=== PATIENT | male | born 1985 | race Hispanic/Latino ===

== ENCOUNTER 2018-01-12 00:28 | Inpatient (IN) | payer MEDICAID ==
[2018-01-11 21:15] VITALS: BMI 21.1
--- NOTE | 2018-01-12 00:33 | CP.PCM.HP ---
<Richmond Napoles - Last Filed: 01/12/18 07:21> Meds Allergies/Adverse Reactions: Allergies Allergy/AdvReac Type Severity Reaction Status Date / Time No Known Allergies Allergy Verified 01/11/18 19:07 Results - Vital Signs Recent Vital Signs: Last Vital Signs Temp 98.5 F 01/12/18 04:00 Pulse 90 01/12/18 06:16 Resp 19 01/12/18 06:16 BP 129/83 01/12/18 06:16 Pulse Ox 95 01/12/18 06:16 - Labs Labs: Laboratory Results - last 24 hr 01/12/18 01:00 Hepatitis A IgM Ab Negative Hep Bs Antigen Negative Hep B Core IgM Ab Negative Hepatitis C Antibody Negative Attending/Attestation - Attestation I have personally seen and examined this patient.: Yes I have fully participated in the care of the patient.: Yes I have reviewed all pertinent clinical information: Yes Notes (Text): 01/12/18 07:21 Assessment Rhabdo likely from lying down SUSHMA with acidosis/hyperkalemia likely from above, + hyvolemia, patient had Ct contrast exposure Left subclavian vein thrombosis, 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 Hepatitis panel as patient has ivda, dd of transamintis Counselled about substance See orders for detail Patient was transferred form [place] [facility] for acute hd. <Madina Rogers - Last Filed: 01/12/18 08:18> History of Present Illness - History of Present Illness History of Present Illness: History and Physical - Hospitalist Service CC: Left sided weakness, Acute renal Failure, Rhabdomyolysis HPI: Patient is a 32 year old male with no significant past medical history who was transferred from [facility] to [facility] for emergent dialysis. Per the patient he initially presented to the Emergency Dept for inability to move his left arm and left leg. Patient states that he was injecting cocaine and heroine in his right arm the night prior to admission. He reports that he fell asleep in his truck. Patient woke up with new onset left arm and left leg weakness. While at [place] [facility], patient was found to be in acute renal failure, rhabdomyolysis and hyperkalemia. Patient unable to urinate. Currently he still reports that he cannot move his left arm. He is able to move his left leg but it feels weak. 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, lives with parents Family History: Denies Present on Admission - Present on Admission Any Indicators Present on Admission: No Past Patient History - Tetanus Immunizations Tetanus Immunization: Up to Date - Past Social History Smoking Status: Current Some Days Smoker - CARDIAC Hx Cardiac Disorders: No Hx Hypertension: No - PULMONARY Hx Respiratory Disorders: Yes (SMOKES CIGARETTES PPD) Hx Tuberculosis: No - NEUROLOGICAL Hx Neurological Disorder: No Hx Seizures: No - HEENT Hx HEENT Problems: No - RENAL Hx Chronic Kidney Disease: No - ENDOCRINE/METABOLIC Hx Endocrine Disorders: No - HEMATOLOGICAL/ONCOLOGICAL Hx Blood Disorders: No Hx Cancer: No - INTEGUMENTARY Hx Dermatological Problems: No - MUSCULOSKELETAL/RHEUMATOLOGICAL Hx Musculoskeletal Disorders: No Hx Falls: Yes - GASTROINTESTINAL Hx Gastrointestinal Disorders: No - GENITOURINARY/GYNECOLOGICAL Hx Sexually Transmitted Disorders: No - PSYCHIATRIC Hx Psychophysiologic Disorder: Yes (HEROIN/COCAINE IVDU) Hx Substance Use: Yes (HEROIN,COCAINE IVDU.USED 2 BAGS EACH TODAY.) Other/Comment: substance abuse. - SURGICAL HISTORY Hx Surgeries: No - ANESTHESIA Hx Anesthesia: No Hx Anesthesia Reactions: No Hx Malignant Hyperthermia: No Physical Exam - Constitutional Appears: Non-toxic, No Acute Distress - Head Exam Head Exam: ATRAUMATIC, NORMAL INSPECTION, NORMOCEPHALIC - Eye Exam Eye Exam: EOMI, Normal appearance Pupil Exam: NORMAL ACCOMODATION - ENT Exam ENT Exam: Mucous Membranes Dry - Respiratory Exam Respiratory Exam: Clear to Auscultation Bilateral, NORMAL BREATHING PATTERN. absent: Rales, Rhonchi, Wheezes - Cardiovascular Exam Cardiovascular Exam: REGULAR RHYTHM, +S1, +S2. absent: Systolic Murmur - GI/Abdominal Exam GI & Abdominal Exam: Normal Bowel Sounds, Soft. absent: Guarding, Rebound, Rigid, Tenderness - Extremities Exam Extremities exam: Positive for: pedal pulses present. Negative for: calf tenderness Additional comments: + left femoral catheter - Back Exam Back exam: NORMAL INSPECTION - Neurological Exam Neurological exam: Alert, Oriented x3 - Expanded Neurological Exam Expanded Neuro motor strength exam: Left Upper Extremity: 0, Right Upper Extremity: 5, Left Lower Extremity: 3, Right Lower Extremity: 5 Assessment & Plan - Assessment and Plan (Free Text) Assessment: A/P: Patient is a 32 year old male with no significant past medical history who was transferred from [facility] for emergent dialysis. Acute Kidney Failure likely secondary to Rhabdomyolysis -Stable, afebrile -Metabolic acidosis, previously on bicarb drip -Patient currently receiving dialysis -Last CPK level was 67,913; will continue to trend -Monitor urine output -Nephrology on consult, help appreciated Left sided weakness -On exam, patient has complete paralysis of left arm and left leg weakness -CT head on admission is negative for acute intracranial pathology -Brain MRI is ordered -Cervical, Thoracic and Lumbar MRI ordered as well -Neurology on consult, help appreciated -Physical therapy, occupational therapy Hyperkalemia -Potassium was 6.0 prior to dialysis -He was given Insulin and Kayexylate at [facility] -Continue to monitor Left Subclavian Thrombus -Likely secondary to IV drug abuse -Start on anticoagulation -F/U Upper extremity venous dopplers -F/U Lower extremity venous dopplers Leukocytosis -WBC was 34 on admission -CT chest/abdomen/pelvis was negative -Blood cultures, urine cultures, procalcitonin pending -Will continue to monitor Transaminitis -AST/ALT 1105/574 -Hepatitis panel was negative -Continue to monitor -Avoid hepatotoxic agents Polysubstance abuse -UTOX positive for cocaine and opiates -Patient with history of multiple hospital visits for potential drug overdose -Cessation advised -Consider Psych consult GI/DVT ppx -Protonix 40mg PO daily -F/U lower extremity Venous US Plan discussed with Dr Yesika Rogers DO PGY-2
[2018-01-12 02:01] LABS: HEPATITIS B SURFACE AG Negative (NEGATIVE)
[2018-01-12 02:07] LABS: HEPATITIS A IGM NEGATIVE (NEGATIVE); HEPATITIS B CORE AB NEGATIVE (NEGATIVE)
[2018-01-12 02:18] LABS: HEPATITIS C ANTIBODY NEGATIVE (NEGATIVE)
--- NOTE | 2018-01-12 03:03 | CP.CCUPN ---
CCU Subjective - Physician Review Events Since Last Encounter (Free Text): 32 yo male with history of drug abuse who presented to [facility] ED yesterday after feeling stiff and inability to move his L leg and L arm. Patient reports injecting cocaine and heroin into his R arm . 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 The patient's father found him after he failed to answer his phone multiple times. Patient states that he previously has been hospitalized 4 times for drug toxicity/overdose. Patient denies any medical history . Patient transferred from [facility] today for emergency dialysis as he developed renal failure, rhabdomylysis, hyperkalemia and metabolic acidosis. He is unable to urinate currently. CT head, neck, chest, abdomen, pelvis at [facility] yesterday no acute finding. CCU Objective - Vital Signs / Intake & Output Vital Signs (Last 4 hours): Vital Signs Temp Pulse Resp BP Pulse Ox 01/12/18 02:20 98.6 F 94 H 23 117/90 01/12/18 01:31 99 H 19 125/83 94 L 01/12/18 01:20 94 H 25 H 96 01/12/18 01:10 97 H 22 94 L 01/12/18 01:00 93 H 22 96 01/12/18 00:50 91 H 24 97 01/12/18 00:42 98.8 F 01/12/18 00:40 91 H 23 97 Intake and Output (Last 8hrs): Intake & Output 01/11/18 01/11/18 01/12/18 14:59 22:59 06:59 Intake Total 0 Balance 0 Weight 179 lb 10.828 oz Intake: Oral 0 - Physical Exam Head: Positive for: Abrasion Pupils: Positive for: PERRL Extroacular Muscles: Positive for: EOMI Conjunctiva: Positive for: Normal Ears: Positive for: Normal Mouth: Positive for: Moist Mucous Membranes Pharnyx: Positive for: Normal Nose (External): Positive for: Atraumatic Neck: Positive for: Normal Range of Motion Respiratory/Chest: Positive for: Clear to Auscultation Cardiovascular: Positive for: Regular Rate and Rhythm Abdomen: Positive for: Normal Bowel Sounds Upper Extremity: Positive for: Normal Inspection, Other (unable to move left arm) Lower Extremity: Positive for: Normal Inspection, Other (unable to harrison left leg) Neurological: Positive for: Speech Normal, Other (unable to move left arm and left leg) Psychiatric: Positive for: Alert, Oriented x 3 - Patient Studies Lab Studies: Lab Studies 01/12/18 Range/Units 01:00 Hepatitis A IgM Ab Negative (NEGATIVE) Hep Bs Antigen Negative (NEGATIVE) Hep B Core IgM Ab Negative (NEGATIVE) Hepatitis C Antibody Negative (NEGATIVE) Laboratory Results - last 24 hr 01/12/18 01:00 Hepatitis A IgM Ab Negative Hep Bs Antigen Negative Hep B Core IgM Ab Negative Hepatitis C Antibody Negative Assessment/Plan - Assessment and Plan (Free Text) Assessment: A/P Renal failure, rhabdomylysis, hyperkalemia, metabolic acidosis, ?left side weakness, drug abuse - Dialysis as per renal - Neurology consult - MRI brain and neck - Venous Doppler upper and lower extremities - Follow up electrolytes Critical care 35 min
[2018-01-12] MEDS ORDERED: Heparin25000 units/250ml 1/2NS 25,000 UNITS/250 ML BAG IV PRN (03:08)
[2018-01-12 08:36] LABS: BASO % 0.2 % (0.0-2.0); HEMOGLOBIN 12.9 g/dL (12.0-18.0); LYMPH # 1.2 K/uL (1.0-4.3); LYMPH % 8.5 % (20.0-40.0); MEAN CELL VOLUME 83.7 fL (80.0-94.0); MEAN CORPUSCULAR HEMOGLOBIN 28.4 pg (27.0-31.0); MEAN CORPUSCULAR HGB CONC 33.9 g/dL (33.0-37.0); MEAN PLATELET VOLUME 8.5 fL (7.2-11.7); MONO # 1.1 K/uL (0.0-0.8); MONO % 7.4 % (0.0-10.0); NEUT # 12.3 K/uL (1.8-7.0); NEUT % 83.9 % (50.0-75.0); PLATELET COUNT 162 K/uL (130-400); RBC 4.55 Mil/uL (4.40-5.90); RED CELL DISTRIBUTION WIDTH 15.7 % (11.5-14.5); WHITE BLOOD COUNT 14.7 K/uL (4.8-10.8)
[2018-01-12 08:51] LABS: ALB/GLOB RATIO 1.2 (1.0-2.1); CALCIUM 7.4 mg/dl (8.6-10.4)
--- NOTE | 2018-01-12 08:51 | CP.PCM.CON ---
<Yadiel Bates - Last Filed: 01/12/18 13:19> History of Present Illness - History of Present Illness History of Present Illness: Yadiel Bates DO, PGY-2: Nephrology Consult Note for Dr. 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 He reports not remembering much after shooting up but when he woke up in the morning he had difficulty moving his left arm and leg. He was eventually sent to the ED in [facility] and was found to have acute kidney injury, severe rhabdomyolysis, hyperkalemia, and anuric despite being given 4-5 L of fluids and Lasix. Nephrology was consulted and it was decided to transfer the patient to [facility] overnight for emergent hemodialysis. At the time of my encounter with the patient he is alert and oriented x 3. He is with Ricci catheter without any urine output noted. He complains of difficulty moving the left leg and arm aloing with associated numbness of the left leg. He denies fever, chills, nausea, vomiting, chest pain, diaphoresis, or headache. He admits to left sided weakness and numbness and lack of urinary output. 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 parents Family History: Denies Review of Systems - Review of Systems All systems: reviewed and no additional remarkable complaints except (except as per HPI) Past Patient History - Tetanus Immunizations Tetanus Immunization: Up to Date - Past Medical History & Family History Past Medical History?: Yes - Past Social History Smoking Status: Current Some Days Smoker - CARDIAC Hx Cardiac Disorders: No Hx Hypertension: No - PULMONARY Hx Respiratory Disorders: Yes (SMOKES CIGARETTES PPD) Hx Tuberculosis: No - NEUROLOGICAL Hx Neurological Disorder: No Hx Seizures: No - HEENT Hx HEENT Problems: No - RENAL Hx Chronic Kidney Disease: No - ENDOCRINE/METABOLIC Hx Endocrine Disorders: No - HEMATOLOGICAL/ONCOLOGICAL Hx Blood Disorders: No Hx Cancer: No - INTEGUMENTARY Hx Dermatological Problems: No - MUSCULOSKELETAL/RHEUMATOLOGICAL Hx Musculoskeletal Disorders: No Hx Falls: Yes - GASTROINTESTINAL Hx Gastrointestinal Disorders: No - GENITOURINARY/GYNECOLOGICAL Hx Sexually Transmitted Disorders: No - PSYCHIATRIC Hx Psychophysiologic Disorder: Yes (HEROIN/COCAINE IVDU) Hx Substance Use: Yes (HEROIN,COCAINE IVDU.USED 2 BAGS EACH TODAY.) Other/Comment: substance abuse. - SURGICAL HISTORY Hx Surgeries: No - ANESTHESIA Hx Anesthesia: No Hx Anesthesia Reactions: No Hx Malignant Hyperthermia: No Meds Allergies/Adverse Reactions: Allergies Allergy/AdvReac Type Severity Reaction Status Date / Time No Known Allergies Allergy Verified 01/11/18 19:07 - Medications Medications: Current Medications Heparin Sodium/Sodium Chloride (Heparin 39043 Units/250ml 1/2 Normal Saline) 25,000 units in 250 mls @ 14.67 mls/hr IV .Q17H3M PRN; Protocol PRN Reason: ADJUST RATE PER PROTOCOL Influenza Virus Vaccine (Fluzone Quad [id number]) 60 mcg IM .ONCE ONE Stop: 01/13/18 10:01 Pantoprazole Sodium (Protonix Ec Tab) 40 mg PO DAILY [facility] Pneumococcal Polyvalent Vaccine (Pneumovax 23 Vaccine) 0.5 ml IM .ONCE ONE Stop: 01/13/18 10:01 Physical Exam - Constitutional Appears: Non-toxic - Head Exam Head Exam: ATRAUMATIC, NORMOCEPHALIC - Eye Exam Eye Exam: EOMI, Normal appearance - ENT Exam ENT Exam: Mucous Membranes Moist - Neck Exam Neck exam: Positive for: Normal Inspection - Respiratory Exam Respiratory Exam: Clear to Auscultation Bilateral, NORMAL BREATHING PATTERN. absent: Accessory Muscle Use - Cardiovascular Exam Cardiovascular Exam: RRR, +S1, +S2 - GI/Abdominal Exam GI & Abdominal Exam: Soft. absent: Distended, Guarding, Rebound - Extremities Exam Extremities exam: Positive for: normal inspection. Negative for: calf tenderness - Neurological Exam Neurological exam: Alert, Oriented x3 Additional comments: left sided weakness in arm and leg - Psychiatric Exam Psychiatric exam: Normal Affect, Normal Mood - Skin Skin Exam: Dry, Intact, Normal Color, Warm Results - Vital Signs Recent Vital Signs: Last Vital Signs Temp 98.5 F 01/12/18 08:00 Pulse 94 H 01/12/18 07:17 Resp 18 01/12/18 07:17 BP 129/94 H 01/12/18 07:17 Pulse Ox 96 01/12/18 07:17 - Labs Result Diagrams: 01/12/18 08:31 01/12/18 08:31 Labs: Laboratory Results - last 24 hr 01/12/18 01/12/18 01:00 08:31 WBC 14.7 H RBC 4.55 Hgb 12.9 Hct 38.1 MCV 83.7 MCH 28.4 MCHC 33.9 RDW 15.7 H Plt Count 162 MPV 8.5 Neut % (Auto) 83.9 H Lymph % (Auto) 8.5 L [place] % (Auto) 7.4 Eos % (Auto) 0.0 Baso % (Auto) 0.2 Neut # (Auto) 12.3 H Lymph # (Auto) 1.2 [place] # (Auto) 1.1 H Eos # (Auto) 0.0 Baso # (Auto) 0.0 Hepatitis A IgM Ab Negative Hep Bs Antigen Negative Hep B Core IgM Ab Negative Hepatitis C Antibody Negative Assessment & Plan - Assessment and Plan (Free Text) Assessment: 32 year old male with a medical history notable for intravenous cocaine and heroin abuse who presented to [facility] yesterday for left sided weakness in the setting of shooting up and was found to have acute kidney injury, severe rhabdomyolysis, hyperkalemia (not satisfactorily responding to conservative therapy), and anuria despite being given 6 L of fluids and IV diuretics. He was emergently transferred to [facility] for emergent dialysis and is being closely monitored in the ICU. Plan: 1) Acute kidney failure with hyperkalemia secondary to severe rhabdomyolysis and drug induced ATN - CPK 68,000, LDH 5,950, UA showing blood - Urine cytology ordered to assess for any cast or other abnormalities - CPK trending down - Continue fluids with 100 mls/hr - Hyperkalemia has resolved - Continue HD as per Dr. Alvarez (patient will likely go tomorrow for dialysis) - During previous dialysis session it was noted flow rate in dialysis catheter was 250 mls/min (though it should be 350 mls/hr); this is likely secondary to placement of the catheter. To be addressed by Dr. Alvarez prior to next dialysis session 2) Relatively Anuric - Continue IV fluids - Strict I/O Case was reviewed and discussed in detal with attending physician, Dr. Alvarez - Date & Time Date: 01/12/18 Time: 09:03 <Ortega Alvarez - Last Filed: 01/12/18 23:18> Meds - Medications Medications: Current Medications Heparin Sodium/Sodium Chloride (Heparin 40352 Units/250ml 1/2 Normal Saline) 25,000 units in 250 mls @ 14.67 mls/hr IV .Q17H3M PRN; Protocol PRN Reason: ADJUST RATE PER PROTOCOL Last Titration: 01/12/18 18:00 Dose: 20 units/kg/hr, 16.3 mls/hr Sodium Chloride (Sodium Chloride 0.9%) 1,000 mls @ 100 mls/hr IV .Q10H [facility] Last Admin: 01/12/18 12:51 Dose: 100 mls/hr Influenza Virus Vaccine (Fluzone Quad [id number]) 60 mcg IM .ONCE ONE Stop: 01/13/18 10:01 Pantoprazole Sodium (Protonix Ec Tab) 40 mg PO DAILY [facility] Last Admin: 01/12/18 10:35 Dose: 40 mg Pneumococcal Polyvalent Vaccine (Pneumovax 23 Vaccine) 0.5 ml IM .ONCE ONE Stop: 01/13/18 10:01 Results - Vital Signs Recent Vital Signs: Last Vital Signs Temp 98.2 F 01/12/18 20:00 Pulse 92 H 01/12/18 22:16 Resp 25 H 01/12/18 22:16 BP 135/93 H 01/12/18 22:16 Pulse Ox 97 01/12/18 22:16 - Labs Result Diagrams: 01/12/18 08:31 01/12/18 21:44 Labs: Laboratory Results - last 24 hr 01/12/18 01/12/18 01/12/18 01:00 08:31 08:31 WBC 14.7 H RBC 4.55 Hgb 12.9 Hct 38.1 MCV 83.7 MCH 28.4 MCHC 33.9 RDW 15.7 H Plt Count 162 MPV 8.5 Neut % (Auto) 83.9 H Lymph % (Auto) 8.5 L [place] % (Auto) 7.4 Eos % (Auto) 0.0 Baso % (Auto) 0.2 Neut # (Auto) 12.3 H Lymph # (Auto) 1.2 [place] # (Auto) 1.1 H Eos # (Auto) 0.0 Baso # (Auto) 0.0 Neutrophils % (Manual) 84 H Band Neutrophils % 6 H Lymphocytes % (Manual) 6 L Monocytes % (Manual) 4 Platelet Estimate Normal Anisocytosis (manual) Slight PT INR APTT Sodium 135 Potassium 4.2 Chloride 99 Carbon Dioxide 28 Anion Gap 12 BUN 26 H Creatinine 2.9 H Est GFR ( Amer) 31 Est GFR (Non-Af Amer) 25 Random Glucose 105 Calcium 7.4 L Phosphorus 5.3 H Magnesium 1.6 Total Bilirubin 0.4 AST 1033 H ALT 465 H Alkaline Phosphatase 71 Total Creatine Kinase 62540 H Total Protein 5.5 L Albumin 3.0 L Globulin 2.5 Albumin/Globulin Ratio 1.2 Procalcitonin Hepatitis A IgM Ab Negative Hep Bs Antigen Negative Hep B Core IgM Ab Negative Hepatitis C Antibody Negative 01/12/18 01/12/18 01/12/18 08:31 17:17 21:44 WBC RBC Hgb Hct MCV MCH MCHC RDW Plt Count MPV Neut % (Auto) Lymph % (Auto) [place] % (Auto) Eos % (Auto) Baso % (Auto) Neut # (Auto) Lymph # (Auto) [place] # (Auto) Eos # (Auto) Baso # (Auto) Neutrophils % (Manual) Band Neutrophils % Lymphocytes % (Manual) Monocytes % (Manual) Platelet Estimate Anisocytosis (manual) PT 15.3 H INR 1.4 APTT 41 H Sodium 133 Potassium 3.7 Chloride 98 Carbon Dioxide 26 Anion Gap 13 BUN 34 H Creatinine 4.0 H Est GFR ( Amer) 21 Est GFR (Non-Af Amer) 17 Random Glucose 98 Calcium 7.3 L Phosphorus Magnesium Total Bilirubin AST ALT Alkaline Phosphatase Total Creatine Kinase Total Protein Albumin Globulin Albumin/Globulin Ratio Procalcitonin 33.43 H Hepatitis A IgM Ab Hep Bs Antigen Hep B Core IgM Ab Hepatitis C Antibody Attending/Attestation - Attestation I have personally seen and examined this patient.: Yes I have fully participated in the care of the patient.: Yes I have reviewed all pertinent clinical information: Yes Notes (Text): Patient seen and examined; I agree with the resident's plan as above with the following additions/edits: 32 yo M w/ pmh of IVDA, admitted to [facility] with severe rhabdomyolysis in the setting of likely prolonged compression of upper extremity muscle compartment (though no compartment syndrome) as well as cocaine use, transferred to [facility] overnight for acute oliguric renal failure needing urgent HD for hyperkalemia and metabolic acidosis; ATN secondary to severe rhabdo and possibly exacerbated by IV contrast; no need to check urine cytology unless patient has persistent hematuria in the future; Patient received HD overnight, tolerated well and with hyperkalemia/metabolic acidosis corrected despite subpar blood flows; patient remains oligo-anuric; repeat labs this evening show stable electrolyte status; relatively euvolemic on exam with no extra FIO2 requirement; Patient also with initial presentation consistent with severe sepsis with profound hypotension, lactic acidosis and leukocytosis; received 6L NS boluses with marked hemodynamic improvement; broad spectrum antibiotics ordered by ID at [facility] but unclear if patient actually received them; leukocytosis much improved but still with neutrophil bands and markedly elevated procalcitonin level; blood cultures negative to date; Found also to have 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
[2018-01-12 09:23] LABS: BANDS 6 % (0-2); LYMPHOCYTE 6 % (20-40); MONOCYTE 4 % (0-10); NEUTROPHIL 84 % (50-75); PLATELET ESTIMATE NORMAL (NORMAL); TOTAL CELLS COUNTED 100
[2018-01-12 09:26] LABS: ANISOCYTOSIS SLIGHT
[2018-01-12] MEDS: Heparin25000 units/250ml 1/2NS 25,000 UNITS/250 ML BAG IV PRN (10:33)
[2018-01-12] MEDS: Pantoprazole 40 mg EC Tab PO SCH (10:35)
[2018-01-12] MEDS ORDERED: Sodium Bicarbonate 8.4% 200 MEQ in Sodium Chloride 0.9% 1,000 ML IV ONE (10:58)
[2018-01-12] MEDS ORDERED: Sodium Bicarbonate (8.4%) 50 Meq Syringe IVP ONE (11:40)
[2018-01-12] MEDS: Sodium Chloride 0.9% 1,000 ML IV SCH (12:51)
--- NOTE | 2018-01-12 15:18 | CP.PCM.CON ---
<Reji Starks - Last Filed: 01/12/18 15:29> History of Present Illness - History of Present Illness History of Present Illness: 32 year old male with no past medical history was transferred from [facility] to [facility] for emergent hemodialysis. Patient also reported left sided weakness since yesterday. He reports this being the first time this has occurred. Patient did admit prior to the symptoms he was injecting heroin. Afterwards, he reported the symptoms. He denies any chest pain, fevers, chills, nausea, vomiting, headaches, syncopal episodes, or any other complaints. 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 absent: Daytime Sleepiness, Frequent Falls, Headache, Night Sweats, Snoring - EENT Eyes: absent: Blurred Vision, Discharge, Loss of Peripheral Vision, Requires Co rrective Lenses, Sees Flashes, Other Visual Disturbances, Loss of Vision Ears: absent: Ear Discharge, Dizziness Nose/Mouth/Throat: absent: Nasal Congestion, Nose Pain, Bleeding Gums, Dysphagia, Mouth Pain, Facial Pain - Cardiovascular Cardiovascular: absent: Chest Pain, Claudication, Irregular Heart Rhythm, Leg Edema, Palpitations, Pedal Edema, Syncope - Gastrointestinal Gastrointestinal: absent: Dysphagia, Heartburn, Melena, Nausea - Integumentary Integumentary: absent: Lesions, Swelling, Unusual Bruising - Neurological Neurological: Weakness. absent: Loss of Vision, Radicular Pain, Restless Legs, Syncope, Tingling, Tremor, Vertigo - Psychiatric Psychiatric: absent: Behavioral Changes, Depression, Hopelessness, Panic Attacks - Endocrine Endocrine: absent: Polydipsia, Polyphagia, Polyuria - Hematologic/Lymphatic Hematologic: absent: Easy Bleeding, Easy Bruising Past Patient History - Tetanus Immunizations Tetanus Immunization: Up to Date - Past Medical History & Family History Past Medical History?: Yes - Past Social History Smoking Status: Current Some Days Smoker - CARDIAC Hx Cardiac Disorders: No Hx Hypertension: No - PULMONARY Hx Respiratory Disorders: Yes (SMOKES CIGARETTES PPD) Hx Tuberculosis: No - NEUROLOGICAL Hx Neurological Disorder: No Hx Seizures: No - HEENT Hx HEENT Problems: No - RENAL Hx Chronic Kidney Disease: No - ENDOCRINE/METABOLIC Hx Endocrine Disorders: No - HEMATOLOGICAL/ONCOLOGICAL Hx Blood Disorders: No Hx Cancer: No - INTEGUMENTARY Hx Dermatological Problems: No - MUSCULOSKELETAL/RHEUMATOLOGICAL Hx Musculoskeletal Disorders: No Hx Falls: Yes - GASTROINTESTINAL Hx Gastrointestinal Disorders: No - GENITOURINARY/GYNECOLOGICAL Hx Sexually Transmitted Disorders: No - PSYCHIATRIC Hx Psychophysiologic Disorder: Yes (HEROIN/COCAINE IVDU) Hx Substance Use: Yes (HEROIN,COCAINE IVDU.USED 2 BAGS EACH TODAY.) Other/Comment: substance abuse. - SURGICAL HISTORY Hx Surgeries: No - ANESTHESIA Hx Anesthesia: No Hx Anesthesia Reactions: No Hx Malignant Hyperthermia: No Meds Allergies/Adverse Reactions: Allergies Allergy/AdvReac Type Severity Reaction Status Date / Time No Known Allergies Allergy Verified 01/11/18 19:07 - Medications Medications: Current Medications Heparin Sodium/Sodium Chloride (Heparin 67103 Units/250ml 1/2 Normal Saline) 25,000 units in 250 mls @ 14.67 mls/hr IV .Q17H3M PRN; Protocol PRN Reason: ADJUST RATE PER PROTOCOL Last Admin: 01/12/18 10:33 Dose: 18 units/kg/hr, 14.67 mls/hr Sodium Chloride (Sodium Chloride 0.9%) 1,000 mls @ 100 mls/hr IV .Q10H [facility] Last Admin: 01/12/18 12:51 Dose: 100 mls/hr Influenza Virus Vaccine (Fluzone Quad [id number]) 60 mcg IM .ONCE ONE Stop: 01/13/18 10:01 Pantoprazole Sodium (Protonix Ec Tab) 40 mg PO DAILY [facility] Last Admin: 01/12/18 10:35 Dose: 40 mg Pneumococcal Polyvalent Vaccine (Pneumovax 23 Vaccine) 0.5 ml IM .ONCE ONE Stop: 01/13/18 10:01 Physical Exam - Head Exam Head Exam: ATRAUMATIC, NORMAL INSPECTION - Eye Exam Eye Exam: EOMI, Normal appearance, PERRL - ENT Exam ENT Exam: Mucous Membranes Moist, Normal Oropharynx - Neck Exam Neck exam: Negative for: Lymphadenopathy, Thyromegaly - Respiratory Exam Respiratory Exam: Clear to Auscultation Bilateral, NORMAL BREATHING PATTERN. absent: Chest Wall Tenderness, Prolonged Expiratory Phase, Respiratory Distress - Cardiovascular Exam Cardiovascular Exam: REGULAR RHYTHM, RRR, +S1, +S2. absent: Gallop, Rubs - GI/Abdominal Exam GI & Abdominal Exam: Normal Bowel Sounds, Soft. absent: Organomegaly, Tenderness - Back Exam Back exam: NORMAL INSPECTION - Neurological Exam Neurological exam: Alert, CN II-XII Intact, Motor Sensory Deficit - Expanded Neurological Exam Expanded Sensory exam: Lower Extremity Light Touch: Abnormal Left, Upper Extremity Light Touch: Abnormal Left Neuro motor strength exam: Left Upper Extremity: 3, Right Upper Extremity: 4, Left Lower Extremity: 3, Right Lower Extremity: 4 - Psychiatric Exam Psychiatric exam: Normal Affect, Normal Mood - Skin Skin Exam: Dry, Intact Results - Vital Signs Recent Vital Signs: Last Vital Signs Temp 98.5 F 01/12/18 08:00 Pulse 91 H 01/12/18 11:16 Resp 20 01/12/18 11:16 BP 128/88 01/12/18 11:16 Pulse Ox 98 01/12/18 11:16 - Labs Result Diagrams: 01/12/18 08:31 01/12/18 08:31 Labs: Laboratory Results - last 24 hr 01/12/18 01/12/18 01/12/18 01:00 08:31 08:31 WBC 14.7 H RBC 4.55 Hgb 12.9 Hct 38.1 MCV 83.7 MCH 28.4 MCHC 33.9 RDW 15.7 H Plt Count 162 MPV 8.5 Neut % (Auto) 83.9 H Lymph % (Auto) 8.5 L [place] % (Auto) 7.4 Eos % (Auto) 0.0 Baso % (Auto) 0.2 Neut # (Auto) 12.3 H Lymph # (Auto) 1.2 [place] # (Auto) 1.1 H Eos # (Auto) 0.0 Baso # (Auto) 0.0 Neutrophils % (Manual) 84 H Band Neutrophils % 6 H Lymphocytes % (Manual) 6 L Monocytes % (Manual) 4 Platelet Estimate Normal Anisocytosis (manual) Slight Sodium 135 Potassium 4.2 Chloride 99 Carbon Dioxide 28 Anion Gap 12 BUN 26 H Creatinine 2.9 H Est GFR ( Amer) 31 Est GFR (Non-Af Amer) 25 Random Glucose 105 Calcium 7.4 L Phosphorus 5.3 H Magnesium 1.6 Total Bilirubin 0.4 AST 1033 H ALT 465 H Alkaline Phosphatase 71 Total Creatine Kinase 62748 H Total Protein 5.5 L Albumin 3.0 L Globulin 2.5 Albumin/Globulin Ratio 1.2 Procalcitonin Hepatitis A IgM Ab Negative Hep Bs Antigen Negative Hep B Core IgM Ab Negative Hepatitis C Antibody Negative 01/12/18 08:31 WBC RBC Hgb Hct MCV MCH MCHC RDW Plt Count MPV Neut % (Auto) Lymph % (Auto) [place] % (Auto) Eos % (Auto) Baso % (Auto) Neut # (Auto) Lymph # (Auto) [place] # (Auto) Eos # (Auto) Baso # (Auto) Neutrophils % (Manual) Band Neutrophils % Lymphocytes % (Manual) Monocytes % (Manual) Platelet Estimate Anisocytosis (manual) Sodium Potassium Chloride Carbon Dioxide Anion Gap BUN Creatinine Est GFR ( Amer) Est GFR (Non-Af Amer) Random Glucose Calcium Phosphorus Magnesium Total Bilirubin AST ALT Alkaline Phosphatase Total Creatine Kinase Total Protein Albumin Globulin Albumin/Globulin Ratio Procalcitonin 33.43 H Hepatitis A IgM Ab Hep Bs Antigen Hep B Core IgM Ab Hepatitis C Antibody Assessment & Plan - Assessment and Plan (Free Text) Assessment: 32 year old male with past medical history being admitted for emergent hemodialysis and left sided weakness. Plan: 1.Left sided weakness -CT head: :Negative -Brain MRI w/o contrast ordered. Will f/u with results -Cervical spine MRI ordered.Will f/u with results -Lumbar spine MRI ordered. Will f/u with results -Thoracic spine MRI ordered. Will f/u with results. -PT/OT Plan discussed with Dr. Rigo Starks,PGY-2 <Jason Ham - Last Filed: 01/14/18 18:37> Meds - Medications Medications: Current Medications Amoxicillin/Clavulanate Potassium (Augmentin 500 Mg-125 Mg Tab) 1 tab PO Q24H [facility]; Protocol Last Admin: 01/14/18 15:34 Dose: 1 tab Heparin Sodium/Sodium Chloride (Heparin 60842 Units/250ml 1/2 Normal Saline) 25,000 units in 250 mls @ 14.67 mls/hr IV .Q17H3M PRN; Protocol PRN Reason: ADJUST RATE PER PROTOCOL Last Admin: 01/14/18 08:12 Dose: 20 units/kg/hr, 16.3 mls/hr Pantoprazole Sodium (Protonix Ec Tab) 40 mg PO DAILY [facility] Last Admin: 01/14/18 10:49 Dose: 40 mg Results - Vital Signs Recent Vital Signs: Last Vital Signs Temp 98.4 F 01/14/18 16:00 Pulse 66 01/14/18 18:00 Resp 26 H 01/14/18 18:00 BP 130/73 01/14/18 16:31 Pulse Ox 97 01/14/18 18:00 - Labs Result Diagrams: 01/14/18 05:53 01/14/18 05:53 Labs: Laboratory Results - last 24 hr 01/13/18 01/14/18 01/14/18 23:12 05:53 05:53 WBC 8.6 RBC 3.97 L Hgb 11.2 L Hct 32.9 L MCV 82.8 MCH 28.2 MCHC 34.1 RDW 15.7 H Plt Count 133 MPV 8.5 Neut % (Auto) 72.0 Lymph % (Auto) 19.3 L [place] % (Auto) 7.2 Eos % (Auto) 1.0 Baso % (Auto) 0.5 Neut # (Auto) 6.2 Lymph # (Auto) 1.7 [place] # (Auto) 0.6 Eos # (Auto) 0.1 Baso # (Auto) 0.0 APTT 49 H D Sodium 136 Potassium 3.7 Chloride 105 Carbon Dioxide 25 Anion Gap 11 BUN 30 H Creatinine 4.4 H Est GFR ( Amer) 19 Est GFR (Non-Af Amer) 16 Random Glucose 108 Calcium 7.6 L Phosphorus 3.6 Magnesium 1.9 Total Bilirubin 0.4 AST 628 H D ALT 371 H Alkaline Phosphatase 62 Total Protein 5.3 L Albumin 2.8 L Globulin 2.5 Albumin/Globulin Ratio 1.1 01/14/18 05:53 WBC RBC Hgb Hct MCV MCH MCHC RDW Plt Count MPV Neut % (Auto) Lymph % (Auto) [place] % (Auto) Eos % (Auto) Baso % (Auto) Neut # (Auto) Lymph # (Auto) [place] # (Auto) Eos # (Auto) Baso # (Auto) APTT 58 H D Sodium Potassium Chloride Carbon Dioxide Anion Gap BUN Creatinine Est GFR ( Amer) Est GFR (Non-Af Amer) Random Glucose Calcium Phosphorus Magnesium Total Bilirubin AST ALT Alkaline Phosphatase Total Protein Albumin Globulin Albumin/Globulin Ratio Assessment & Plan - Assessment and Plan (Free Text) Plan: All medical record entries made by theResident were at my direction and personally dictated by me. I have reviewed the chart and agree that the record accurately reflects my personal performance of the history, physical exam, me dical decision making, and the department course for this patient. I have also personally directed, reviewed, and agree with the discharge instructions and disposition. Emilie Jimenez presented initially with left arm and leg weakness that was thought to be a stroke, and MRI brain showed otherwise. MRI L spine and C spine are normal thus far, showing only herniated disc in cervical region, as etiology for weakness and numbness of left arm. Physical therapy would be helpful and discontinuing heroin use. DR. ham
--- NOTE | 2018-01-12 15:53 | MRI ---
Date of service: 01/12/2018 PROCEDURE: MRI BRAIN WITHOUT CONTRAST HISTORY: Left sided weakness COMPARISON: None available. TECHNIQUE: Multiplanar, multisequence MR images of the brain were obtained without intravenous contrast enhancement. FINDINGS: HEMORRHAGE: None DWI: No evidence of an acute or early subacute infarction. BRAIN PARENCHYMA: Trace increased long TR signal is questioned posterior to the occipital horn at the left side with questionable limited cortical development here. This may reflect congenital minimal micro gyri although this could reflect posttraumatic change as well. The vast majority of the epperson and white matter structures are normal with good differentiation otherwise appreciated throughout. There is no mass effect, cortical edema or suspicious extra-axial collection identified. Midline brain anatomy appears normal with posterior fossa unremarkable as well. VENTRICLES: Unremarkable. No hydrocephalus. CRANIUM: Unremarkable. ORBITS: Grossly unremarkable. PARANASAL SINUSES/MASTOIDS: Incidental minimal right maxillary and bilateral ethmoid sinus disease. VASCULAR SYSTEM: Skull base flow voids intact. OTHER FINDINGS: None. IMPRESSION: No acute or subacute brain infarction, mass effect or hydrocephalus. No suspicious extra-axial collection or definite intracranial hemorrhage. Minimal congenital or possible posttraumatic change left occipital lobe posteriorly.
--- NOTE | 2018-01-12 15:57 | MRI ---
Date of service: 01/12/2018 PROCEDURE: MR CERVICAL SPINE WITHOUT CONTRAST HISTORY: Left sided weakness COMPARISON: None available. TECHNIQUE: Multiecho multiplanar sequences were performed through the cervical spine without the use of intravenous contrast. FINDINGS: Normal lordotic curvature. Craniocervical junction unremarkable. Vertebral body heights preserved. No marrow signal abnormality. Normal cervical cord. No paraspinal abnormality. C2-C3: No disc herniation, spinal canal stenosis or neural foraminal narrowing. C3-C4: No disc herniation, spinal canal stenosis or neural foraminal narrowing. C4-C5: No disc herniation, spinal canal stenosis or neural foraminal narrowing. C5-C6: Limited disc bulging encroaches the ventral nerve roots without stenosis. There is a borderline left neural foraminal stenosis with none at the right. C6-C7: No disc herniation, spinal canal stenosis or neural foraminal narrowing. C7-T1: No disc herniation, spinal canal stenosis or neural foraminal narrowing. OTHER FINDINGS: None. IMPRESSION: No disc herniation or severe stenosis appreciated throughout the examination. Limited disc bulging at C5-6 encroaches the ventral nerve roots without generalized central canal stenosis identified. There is a borderline left degenerative neural foraminal stenosis with the right neural foramen widely patent. Normal cord signal throughout.
[2018-01-12 17:29] LABS: INR 1.4; PROTHROMBIN TIME 15.3 SECONDS (9.7-12.2)
[2018-01-12 22:13] LABS: CALCIUM 7.3 mg/dl (8.6-10.4)
[2018-01-13 06:27] LABS: EOS % 0.2 % (0.0-4.0); LYMPH # 1.4 K/uL (1.0-4.3); MEAN CORPUSCULAR HEMOGLOBIN 28.5 pg (27.0-31.0); MEAN CORPUSCULAR HGB CONC 34.3 g/dL (33.0-37.0); MONO # 0.9 K/uL (0.0-0.8); RED CELL DISTRIBUTION WIDTH 15.8 % (11.5-14.5)
[2018-01-13 06:36] LABS: BASO # 0.1 K/uL (0.0-0.2); BASO % 0.5 % (0.0-2.0); HEMOGLOBIN 11.3 g/dL (12.0-18.0); LYMPH % 13.7 % (20.0-40.0); MEAN CELL VOLUME 83.2 fL (80.0-94.0); MEAN PLATELET VOLUME 9.3 fL (7.2-11.7); MONO % 8.4 % (0.0-10.0); NEUT # 8.1 K/uL (1.8-7.0); NEUT % 77.2 % (50.0-75.0); RBC 3.95 Mil/uL (4.40-5.90); WHITE BLOOD COUNT 10.4 K/uL (4.8-10.8)
[2018-01-13 07:09] LABS: ALB/GLOB RATIO 1.1 (1.0-2.1); ALBUMIN 2.7 g/dL (3.5-5.0); CALCIUM 7.2 mg/dl (8.6-10.4)
[2018-01-13] MEDS ORDERED: ceFAZolin IV 1 gm in Dextrose 1 GM/50 ML BAG IVPB ONE (07:34)
[2018-01-13] MEDS ORDERED: Bupivacaine 0.25% 20 ML INJ IJ ONE (07:34)
[2018-01-13] MEDS ORDERED: Lidocaine Hydrochloride 10 ML INJ ONE (07:34)
[2018-01-13] MEDS ORDERED: HEPARIN-NS 5,000 UNITS/500 ML 5,000 UNIT/500 ML BAG IV ONE (07:39)
--- NOTE | 2018-01-13 08:01 | CP.PCM.PN ---
<Yadiel Bates - Last Filed: 01/13/18 13:09> Subjective - Date & Time of Evaluation Date of Evaluation: 01/13/18 Time of Evaluation: 07:35 - Subjective Subjective: Yadiel Bates DO, PGY-2 Nephrology Progress Note for Dr. Alvarez Patient was seen and examined at bedside. He is able to move his left arm and left leg, but reports still experiencing some paresthesias in this region. He is still without urine output. He denies any dyspnea, nausea, vomiting, chest pain or diarrhea. Objective - Vital Signs/Intake and Output Vital Signs (last 24 hours): Temp Pulse Resp BP Pulse Ox 98.3 F 85 20 127/88 96 01/13/18 04:00 01/13/18 07:16 01/13/18 07:16 01/13/18 07:16 01/13/18 07:16 Intake and Output: 01/13/18 01/13/18 06:59 18:59 Intake Total 1314.1 Output Total 200 Balance 1114.1 - Medications Medications: Current Medications Heparin Sodium/Sodium Chloride (Heparin 31633 Units/250ml 1/2 Normal Saline) 25,000 units in 250 mls @ 14.67 mls/hr IV .Q17H3M PRN; Protocol PRN Reason: ADJUST RATE PER PROTOCOL Last Titration: 01/12/18 18:00 Dose: 20 units/kg/hr, 16.3 mls/hr Sodium Chloride (Sodium Chloride 0.9%) 1,000 mls @ 100 mls/hr IV .Q10H [facility] Last Admin: 01/12/18 12:51 Dose: 100 mls/hr Influenza Virus Vaccine (Fluzone Quad [id number]) 60 mcg IM .ONCE ONE Stop: 01/13/18 10:01 Pantoprazole Sodium (Protonix Ec Tab) 40 mg PO DAILY [facility] Last Admin: 01/12/18 10:35 Dose: 40 mg Pneumococcal Polyvalent Vaccine (Pneumovax 23 Vaccine) 0.5 ml IM .ONCE ONE Stop: 01/13/18 10:01 - Labs Labs: 01/13/18 06:15 01/13/18 06:15 PT 15.3 SECONDS (9.7-12.2) H 01/12/18 17:17 INR 1.4 10/02/18 17:17 APTT 111 SECONDS (21-34) H* D 01/13/18 01:06 - Constitutional Appears: Non-toxic, No Acute Distress - Head Exam Head Exam: ATRAUMATIC, NORMOCEPHALIC - Eye Exam Eye Exam: EOMI, Normal appearance - ENT Exam ENT Exam: Mucous Membranes Moist - Neck Exam Neck Exam: Normal Inspection - Respiratory Exam Respiratory Exam: Clear to Ausculation Bilateral, NORMAL BREATHING PATTERN. a bsent: Accessory Muscle Use - Cardiovascular Exam Cardiovascular Exam: RRR, +S1, +S2 - GI/Abdominal Exam GI & Abdominal Exam: absent: Tenderness, Rebound - Extremities Exam Extremities Exam: Normal Inspection. absent: Calf Tenderness - Neurological Exam Neurological Exam: Alert, Awake, Oriented x3 - Psychiatric Exam Psychiatric exam: Normal Affect, Normal Mood - Skin Skin Exam: Dry, Intact, Normal Color, Warm Assessment and Plan - Assessment and Plan (Free Text) Assessment: 32 year old male with a medical history notable for intravenous cocaine and heroin abuse who presented to [facility] yesterday for left sided weakness in the setting of shooting up and was found to have acute kidney injury, severe rhabdomyolysis, hyperkalemia (not satisfactorily responding to conservative therapy), and anuria despite being given 6 L of fluids and IV diuretics. 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 He was emergently transferred to [facility] for emergent dialysis. Currently, the patient has underwent one dialysis session but remains oliguric. His electrolyte abnormalities have been corrected for; however, his CPK is still elevated at 30,083 as are his AST (798) and ALT (433). He underwent a tunneled HD catheter placed by IR. He will undergo another session of dialysis. We recommend avoiding nephrotoxins, including, but not limited to NSAIDS. Also, avoid replenishing the patient's calcium, and if any medications are to be given, please dose them proportionate to the patient's eGFR and in relation to his HD sessions. Also, his Ricci should remain in place until at least tomorrow. Case was reviewed and discussed with attending physician, Dr. Alvarez <Ortega Alvarez - Last Filed: 01/14/18 06:14> Objective - Vital Signs/Intake and Output Vital Signs (last 24 hours): Temp Pulse Resp BP Pulse Ox 97.7 F 79 20 121/84 94 L 01/13/18 17:35 01/14/18 02:00 01/14/18 02:00 01/14/18 01:16 01/14/18 02:00 Intake and Output: 01/13/18 01/14/18 18:59 06:59 Intake Total 1420 1107.8 Output Total 170 265 Balance 1250 842.8 - Medications Medications: Current Medications Heparin Sodium/Sodium Chloride (Heparin 21102 Units/250ml 1/2 Normal Saline) 25,000 units in 250 mls @ 14.67 mls/hr IV .Q17H3M PRN; Protocol PRN Reason: ADJUST RATE PER PROTOCOL Last Admin: 01/13/18 16:48 Dose: 20 units/kg/hr, 16.3 mls/hr Sodium Chloride (Sodium Chloride 0.9%) 1,000 mls @ 50 mls/hr IV .Q20H [facility] Last Admin: 01/13/18 10:00 Dose: 50 mls/hr Pantoprazole Sodium (Protonix Ec Tab) 40 mg PO DAILY [facility] Last Admin: 01/13/18 11:20 Dose: 40 mg - Labs Labs: 01/13/18 06:15 01/13/18 06:15 PT 15.3 SECONDS (9.7-12.2) H 01/12/18 17:17 INR 1.4 01/12/18 17:17 APTT 49 SECONDS (21-34) H D 01/13/18 23:12 Attending/Attestation - Attestation I have personally seen and examined this patient.: Yes I have fully participated in the care of the patient.: Yes I have reviewed all pertinent clinical information, including history, physical exam and plan: Yes Notes (Text): Patient seen and examined; I agree with the resident's plan as above with the following additions/edits: 32 yo M w/ pmh of IVDA, admitted to [facility] with severe rhabdomyolysis in the setting of likely prolonged compression of upper extremity muscle compartment (though no compartment syndrome) as well as cocaine use, transferred to [facility] for acute oliguric renal failure needing urgent HD for hyperkalemia and metabolic acidosis; ATN secondary to severe rhabdo and possibly exacerbated by IV contrast; stable volume and electrolyte status, and urine output improving, but remains oliguric with rising serum creatinine; dialyzing today via new R IJ tunneled cath, UF goal 2 hrs; Otherwise, signs of sepsis have resolved with no more anion gap acidosis or leukocytosis despite not getting any antibiotics yesterday; Remains on heparin drip for L subclavian subacute DVT of unclear etiology; -Avoid nephrotoxic agents (IV dye, NSAIDS) -Decreasing IVF to NS at 50 cc/hr -d/c temp femoral HD cath Thank you for this referral, we will continue to follow closely.
[2018-01-13] MEDS ORDERED: Iodixanol 320 MG/ML 200 ML BOTTLE IV ONE (09:18)
[2018-01-13] MEDS: Sodium Chloride 0.9% 1,000 ML IV SCH ×2 (09:21→10:00)
[2018-01-13] MEDS ORDERED: Midazolam 2 MG/2 ML VIAL ONE ×2 (09:27→09:41)
[2018-01-13] MEDS ORDERED: Pneumococcal 23-Valent Vaccine IM ONE (10:00)
[2018-01-13] MEDS ORDERED: Influenza Vaccine 60 MCG/0.5 ML SYR (3 yr & up) IM ONE (10:00)
--- NOTE | 2018-01-13 10:10 | PCM.SURG1 ---
Surgeon's Initial Post Op Note - Surgeon's Notes Surgeon: Misael Gil MD Lead Medical Technologist: NONE Type of Anesthesia: IV Sedation Pre-Operative Diagnosis: Renal failure Operative Findings: US showed a patent right IJV Post-Operative Diagnosis: Renal failure Operation Performed: Right IJV HD catheter placement, 28 cm total length. Specimen/Specimens Removed: none Estimated Blood Loss: EBL {In ML}: 4 Blood Products Given: N/A Drains Used: No Drains Post-Op Condition: Fair Date of Surgery/Procedure: 01/13/18 Time of Surgery/Procedure: 10:00
--- NOTE | 2018-01-13 10:36 | RAD ---
PROCEDURE: Date of procedure: 01/13/2018 Procedure: 1. Placement of right IJ tunneled hemodialysis catheter, CPT 48615 Medications: 1 percent lidocaine, IV sedation and physiologic monitoring performed by the anesthesiologist. EBL: 5 cm Radiation: 1.83 MGy Fluoro time: 4.4 Seconds Images: 2 HISTORY: Renal failure requiring hemodialysis TECHNIQUE: Following informed consent and procedure time-out, the patient was placed supine on the interventional table and the skin was marked . A limited ultrasound patient's right neck showed a patent compressible right internal jugular vein. Under direct ultrasound guidance, the right internal jugular vein was accessed with micropuncture technique and a guidewire was advanced under fluoroscopic guidance into the superior vena cava. An image documenting ultrasound guidance for vascular access was permanently saved. A 23 centimeter cuff to tip hemodialysis catheter was then tunneled under the skin and hold the venotomy site. The venotomy was then serially dilated to accommodate the peel-away sheath. The hemodialysis catheter was then advanced through a peel-away sheath. The catheter is positioned with tip in the superior vena cava confirm with fluoroscopic image. The catheter was tested and has adequate blood flow for hemodialysis. The catheter was flushed and locked with heparin per specified amount. The catheter secured to the skin with a 0 silk suture. IMPRESSION: Placement of right tunneled hemodialysis 23 cm cuff-to-tip catheter The catheter tip is confirmed with spot radiograph and is in the superior vena cava. The catheter is functional and ready for use.
[2018-01-13] MEDS: Pantoprazole 40 mg EC Tab PO SCH (11:20)
--- NOTE | 2018-01-13 13:44 | CP.PCM.PN ---
<TerezaReji - Last Filed: 01/15/18 09:11> Subjective - Date & Time of Evaluation Date of Evaluation: 01/13/18 Time of Evaluation: 13:44 - Subjective Subjective: Neurology Progress Note: Patient seen and examined at bedside. Per nursing, no acute events occurred overnight. Patient still reports some left sided weakness during visit. He denies any chest pain, shortness of breath, dizziness, or any other complaints. Objective - Vital Signs/Intake and Output Vital Signs (last 24 hours): Temp Pulse Resp BP Pulse Ox 98.3 F 75 20 138/93 H 98 01/13/18 08:00 01/13/18 12:00 01/13/18 12:00 01/13/18 12:00 01/13/18 12:00 Intake and Output: 01/13/18 01/13/18 06:59 18:59 Intake Total 1314.1 720 Output Total 200 40 Balance 1114.1 680 - Medications Medications: Current Medications Heparin Sodium/Sodium Chloride (Heparin 45670 Units/250ml 1/2 Normal Saline) 25,000 units in 250 mls @ 14.67 mls/hr IV .Q17H3M PRN; Protocol PRN Reason: ADJUST RATE PER PROTOCOL Last Titration: 01/12/18 18:00 Dose: 20 units/kg/hr, 16.3 mls/hr Sodium Chloride (Sodium Chloride 0.9%) 1,000 mls @ 100 mls/hr IV .Q10H [facility] Last Admin: 01/13/18 09:21 Dose: Not Given Pantoprazole Sodium (Protonix Ec Tab) 40 mg PO DAILY [facility] Last Admin: 01/13/18 11:20 Dose: 40 mg - Labs Labs: 01/13/18 06:15 01/13/18 06:15 PT 15.3 SECONDS (9.7-12.2) H 01/12/18 17:17 INR 1.4 01/12/18 17:17 APTT 111 SECONDS (21-34) H* D 01/13/18 01:06 - Head Exam Head Exam: NORMAL INSPECTION - Eye Exam Eye Exam: EOMI, Normal appearance, PERRL Pupil Exam: NORMAL ACCOMODATION - ENT Exam ENT Exam: Mucous Membranes Moist, Normal Exam - Respiratory Exam Respiratory Exam: Clear to Ausculation Bilateral, NORMAL BREATHING PATTERN. absent: Prolonged Expiratory Phase, Respiratory Distress - Cardiovascular Exam Cardiovascular Exam: REGULAR RHYTHM, +S1, +S2 - GI/Abdominal Exam GI & Abdominal Exam: Soft, Normal Bowel Sounds - Back Exam Back Exam: NORMAL INSPECTION. absent: CVA tenderness (R), paraspinal tenderness - Neurological Exam Neurological Exam: Alert, Awake, CN II-XII Intact Neuro motor strength exam: Left Upper Extremity: 2/1, Right Upper Extremity: 4, Left Lower Extremity: 2/1, Right Lower Extremity: 4 - Psychiatric Exam Psychiatric exam: Normal Affect, Normal Mood - Skin Skin Exam: Dry, Intact Assessment and Plan - Assessment and Plan (Free Text) Assessment: 32 yo male admitted with Left UE/LE weakness/parasthesias, rhabdomyolysis Plan: 1.Left sided weakness -CT head: :Negative -Brain MRI w/o contrast ordered. Will f/u with results -Cervical spine MRI : disc bulging C5-6 encrouaches ventral nerve roots -Lumbar spine MRI ordered. Will f/u with results -Thoracic spine MRI ordered. Will f/u with results. -PT/OT Symptoms don't match current clinical presentation. Will await remaining imaging results. Plan discussed with Dr. Rigo Starks,PGY-2 <Jason Sierra - Last Filed: 01/17/18 23:36> Objective - Vital Signs/Intake and Output Vital Signs (last 24 hours): Temp Pulse Resp BP Pulse Ox 98.6 F 71 18 137/77 98 01/17/18 20:59 01/17/18 20:59 01/17/18 20:59 01/17/18 20:59 01/17/18 17:07 Intake and Output: 01/17/18 01/18/18 18:59 06:59 Intake Total 900 Balance 900 - Medications Medications: Current Medications Amoxicillin/Clavulanate Potassium (Augmentin 500 Mg-125 Mg Tab) 1 tab PO Q24H [facility]; Protocol Last Admin: 01/17/18 15:31 Dose: 1 tab Apixaban (Eliquis) 2.5 mg PO BID [facility] Last Admin: 01/17/18 17:52 Dose: 2.5 mg Ascorbic Acid (Vitamin C 500 Mg Tab) 500 mg PO DAILY [facility] Last Admin: 01/17/18 09:14 Dose: 500 mg Diphenhydramine HCl (Benadryl) 50 mg PO ONCE ONE Stop: 01/17/18 23:35 Nystatin (Nystatin Oral Susp) 5 ml PO QID [facility] Last Admin: 01/17/18 21:52 Dose: 5 ml Pantoprazole Sodium (Protonix Ec Tab) 40 mg PO DAILY [facility] Last Admin: 01/17/18 09:14 Dose: 40 mg - Labs Labs: 01/17/18 07:48 01/17/18 07:48 PT 15.3 SECONDS (9.7-12.2) H 01/12/18 17:17 INR 1.4 01/12/18 17:17 APTT 46 SECONDS (21-34) H D 01/15/18 06:21 Assessment and Plan - Assessment and Plan (Free Text) Plan: All medical record entries made by the Resudebt were at my direction and personally dictated by me. I have reviewed the chart and agree that the record accurately reflects my personal performance of the history, physical exam, medical decision making, and the department course for this patient. I have also personally directed, reviewed, and agree with the discharge instructions and disposition.
--- NOTE | 2018-01-13 14:17 | VASCLAB ---
Date of service: 01/12/2018 PROCEDURE: Lower Extremity Venous Duplex Exam. HISTORY: r/o dvt PRIORS: None. TECHNIQUE: Bilateral common femoral, femoral, popliteal and posterior tibial, peroneal and great saphenous veins were evaluated. Flow was assessed with color Doppler, compressibility, assessment of phasic flow and augmentation response. Report prepared by Andrés Richards, BS, RVT FINDINGS: RIGHT: 1. Common Femoral Vein: 1.1. Compressibility - Fully compressible: Thrombus - None : Flow - Phasic: Augmentation -Normal: Reflux - None. 2. Femoral Vein: 2.1. Compressibility - Fully compressible: Thrombus - None : Flow - Phasic: Augmentation -Normal: Reflux - None. 3. Popliteal Vein: 3.1. Compressibility - Fully compressible: Thrombus - None : Flow - Phasic: Augmentation -Normal: Reflux - None. 4. Posterior Tibial Vein: 4.1. Compressibility - Fully compressible: Thrombus - None: Flow - Phasic: Augmentation -Normal: Reflux - None. 5. Peroneal Vein: 5.1. Compressibility - Fully compressible: Thrombus - None: Flow - Phasic: Augmentation -Normal: Reflux - None. 6. Great Saphenous Vein: 6.1. Compressibility - Fully compressible: Thrombus - None: Flow - Phasic: Augmentation - Normal: Reflux - None. LEFT: 1. Common Femoral Vein: 1.1. Compressibility - Fully compressible: Thrombus - None: Flow - Phasic: Augmentation -Normal: Reflux - None. 2. Femoral Vein: 2.1. Compressibility - Fully compressible: Thrombus - None: Flow - Phasic: Augmentation -Normal: Reflux - None. 3. Popliteal Vein: 3.1. Compressibility - Fully compressible: Thrombus - None : Flow - Phasic: Augmentation -Normal: Reflux - None. 4. Posterior Tibial Vein: 4.1. Compressibility - Fully compressible: Thrombus - None: Flow - Phasic: Augmentation -Normal: Reflux - None. 5. Peroneal Vein: 5.1. Compressibility - Fully compressible: Thrombus - None: Flow - Phasic: Augmentation -Normal: Reflux - None. 6. Great Saphenous Vein: 6.1. Compressibility - Fully compressible: Thrombus - None: Flow - Phasic: Augmentation - Normal: Reflux - None. OTHER FINDINGS: Right: None significant. Left: None significant. IMPRESSION: Right: No evidence of deep or superficial vein thrombosis of the right lower extremity. Normal valve function noted of the right side. Left: No evidence of deep or superficial vein thrombosis of the left lower extremity. Normal valve function noted of the left side.
--- NOTE | 2018-01-13 14:20 | VASCLAB ---
Date of service: 01/12/2018 PROCEDURE: Upper Extremity Venous Duplex Exam HISTORY: r/o dvt PRIORS: None. TECHNIQUE: Bilateral upper extremity, internal jugular, subclavian, axillary, brachial, ulnar, radial, basilic and upper cephalic veins were evaluated. Flow was assessed with color Doppler, compressibility, assessment of phasic flow and augmentation response. Report prepared by Andrés Richards, BS, RVT FINDINGS: RIGHT: 1. Internal Jugular: 1.1. Compressibility - Fully compressible: Thrombus - None : Flow - Phasic: Augmentation -Normal: Reflux - None. 2. Subclavian: 2.1. Compressibility - Fully compressible: Thrombus - None : Flow - Phasic: Augmentation -Normal: Reflux - None. 3. Axillary: 3.1. Compressibility - Fully compressible: Thrombus - None : Flow - Phasic: Augmentation -Normal: Reflux - None. 4. Brachial: 4.1. Compressibility - Fully compressible: Thrombus - None: Flow - Phasic: Augmentation -Normal: Reflux - None. 5. Ulnar: 5.1. Compressibility - Fully compressible: Thrombus - None: Flow - Phasic: Augmentation -Normal: Reflux - None. 6. Radial: 6.1. Compressibility - Fully compressible: Thrombus - None: Flow - Phasic: Augmentation - Normal: Reflux - None. 7. Cephalic: 7.1. Compressibility - Partial: Thrombus - Acute: Flow - Absent : Augmentation - None: Reflux - None. 8. Basilic: 8.1. Compressibility - Fully compressible: Thrombus - None: Flow - Phasic: Augmentation -Normal: Reflux - None. LEFT: 1. Internal Jugular: 1.1. Compressibility - Fully compressible: Thrombus - None : Flow - Phasic: Augmentation -Normal: Reflux - None. 2. Subclavian: 2.1. Compressibility - Fully compressible: Thrombus - None : Flow - Phasic: Augmentation -Normal: Reflux - None. 3. Axillary: 3.1. Compressibility - Fully compressible: Thrombus - None : Flow - Phasic: Augmentation -Normal: Reflux - None. 4. Brachial: 4.1. Compressibility - Fully compressible: Thrombus - None: Flow - Phasic: Augmentation -Normal: Reflux - None. 5. Ulnar: 5.1. Compressibility - Fully compressible: Thrombus - None: Flow - Phasic: Augmentation -Normal: Reflux - None. 6. Radial: 6.1. Compressibility - Fully compressible: Thrombus - None: Flow - Phasic: Augmentation - Normal: Reflux - None. 7. Cephalic: 7.1. Compressibility - Fully compressible: Thrombus - None: Flow - Phasic: Augmentation -Normal: Reflux - None. 8. Basilic: 8.1. Compressibility - Fully compressible: Thrombus - None: Flow - Phasic: Augmentation -Normal: Reflux - None. OTHER FINDINGS: TAHIR García notified about the findings. Impression Right: Acute thrombosis of the right antecubital fossa cephalic vein with severe reduction of the venous return. No evidence of vein thrombosis of the right upper extremity deep vein with excellent venous flow. Normal valve function noted of the right side. Left: No evidence of vein thrombosis of the left upper extremity with excellent venous flow. Normal valve function noted of the left side.
--- NOTE | 2018-01-13 14:37 | RAD ---
Date of service: 01/13/2018 HISTORY: s/p right permacath insertion COMPARISON: No prior. FINDINGS: LUNGS: Opacity at right lung base. Possible pneumonia. PLEURA: Small right pleural effusion. No pneumothorax. No left pleural effusion. CARDIOVASCULAR: Normal heart size. Right tunneled central venous dialysis catheter. No congestive change. OSSEOUS STRUCTURES: No significant abnormalities. VISUALIZED UPPER ABDOMEN: Normal. OTHER FINDINGS: None. IMPRESSION: Right basilar opacity. Possible pneumonia. Small right pleural effusion. New central venous dialysis catheter.
[2018-01-13] MEDS: Heparin25000 units/250ml 1/2NS 25,000 UNITS/250 ML BAG IV PRN (16:48)
--- NOTE | 2018-01-13 18:30 | CP.PCM.PN ---
Subjective - Date & Time of Evaluation Date of Evaluation: 01/13/18 Time of Evaluation: 18:27 - Subjective Subjective: doing well increased movements left hand had catheter placed by IR Objective - Vital Signs/Intake and Output Vital Signs (last 24 hours): Temp Pulse Resp BP Pulse Ox 97.7 F 73 21 126/90 100 01/13/18 17:35 01/13/18 16:19 01/13/18 17:35 01/13/18 17:35 01/13/18 17:35 Intake and Output: 01/13/18 01/13/18 06:59 18:59 Intake Total 1314.1 1200 Output Total 200 170 Balance 1114.1 1030 - Medications Medications: Current Medications Heparin Sodium/Sodium Chloride (Heparin 75174 Units/250ml 1/2 Normal Saline) 25,000 units in 250 mls @ 14.67 mls/hr IV .Q17H3M PRN; Protocol PRN Reason: ADJUST RATE PER PROTOCOL Last Admin: 01/13/18 16:48 Dose: 20 units/kg/hr, 16.3 mls/hr Sodium Chloride (Sodium Chloride 0.9%) 1,000 mls @ 50 mls/hr IV .Q20H [facility] Last Admin: 01/13/18 10:00 Dose: 50 mls/hr Pantoprazole Sodium (Protonix Ec Tab) 40 mg PO DAILY [facility] Last Admin: 01/13/18 11:20 Dose: 40 mg - Labs Labs: 01/13/18 06:15 01/13/18 06:15 PT 15.3 SECONDS (9.7-12.2) H 01/12/18 17:17 INR 1.4 01/12/18 17:17 APTT 111 SECONDS (21-34) H* D 01/13/18 01:06 - Constitutional Appears: Well, Non-toxic, No Acute Distress - Head Exam Head Exam: ATRAUMATIC, NORMAL INSPECTION - Eye Exam Eye Exam: Normal appearance - ENT Exam ENT Exam: Mucous Membranes Dry - Respiratory Exam Respiratory Exam: Clear to Ausculation Bilateral, NORMAL BREATHING PATTERN. absent: Rales, Rhonchi, Wheezes - Cardiovascular Exam Cardiovascular Exam: REGULAR RHYTHM, +S1, +S2 - GI/Abdominal Exam GI & Abdominal Exam: Soft, Normal Bowel Sounds. absent: Tenderness - Neurological Exam Neurological Exam: Alert, Awake, Oriented x3 Assessment and Plan - Assessment and Plan (Free Text) Assessment: rhabdomyolysis acute renal failure due to rhabdomyolysis ATN oliguria on HD Cocaine and Heroin abuse Left side dvt upper ext - heparin HD management per nephro
[2018-01-13] MEDS ORDERED: DiphenhydrAMINE 50 mg/ml Inj IVP STA (23:59)
[2018-01-14 06:00] LABS: BASO % 0.5 % (0.0-2.0); EOS # 0.1 K/uL (0.0-0.7); HEMOGLOBIN 11.2 g/dL (12.0-18.0); LYMPH # 1.7 K/uL (1.0-4.3); LYMPH % 19.3 % (20.0-40.0); MEAN CELL VOLUME 82.8 fL (80.0-94.0); MEAN CORPUSCULAR HEMOGLOBIN 28.2 pg (27.0-31.0); MEAN CORPUSCULAR HGB CONC 34.1 g/dL (33.0-37.0); MEAN PLATELET VOLUME 8.5 fL (7.2-11.7); MONO # 0.6 K/uL (0.0-0.8); MONO % 7.2 % (0.0-10.0); NEUT # 6.2 K/uL (1.8-7.0); NRBC % 0.1 % (0.0-2.0); RBC 3.97 Mil/uL (4.40-5.90); RED CELL DISTRIBUTION WIDTH 15.7 % (11.5-14.5); WHITE BLOOD COUNT 8.6 K/uL (4.8-10.8)
[2018-01-14] MEDS: Sodium Chloride 0.9% 1,000 ML IV SCH ×2 (06:00→11:33)
[2018-01-14 06:28] LABS: ALB/GLOB RATIO 1.1 (1.0-2.1); ALBUMIN 2.8 g/dL (3.5-5.0); CALCIUM 7.6 mg/dl (8.6-10.4)
[2018-01-14] MEDS: Heparin25000 units/250ml 1/2NS 25,000 UNITS/250 ML BAG IV PRN (08:12)
[2018-01-14] MEDS: Pantoprazole 40 mg EC Tab PO SCH (10:49)
--- NOTE | 2018-01-14 14:40 | CP.PCM.PN ---
<Sunshine Whitney - Last Filed: 01/14/18 18:44> Subjective - Date & Time of Evaluation Date of Evaluation: 01/14/18 Time of Evaluation: 07:50 - Subjective Subjective: Pt examined at bedside, resting comfortably. No acute overnight events. Pt reports his left sided upper and lower extremity weakness has improved and is now able to move extremities. Pt complaints of some tingling. Denies chest pain, SOB, abd pain, nausea, numbness. Pt reports improvement s/p HD Objective - Vital Signs/Intake and Output Vital Signs (last 24 hours): Temp Pulse Resp BP Pulse Ox 98.1 F 59 L 23 133/82 98 01/14/18 12:00 01/14/18 12:05 01/14/18 10:44 01/14/18 10:44 01/14/18 08:53 Intake and Output: 01/14/18 01/14/18 06:59 18:59 Intake Total 1705.6 316.3 Output Total 365 Balance 1340.6 316.3 - Medications Medications: Current Medications Heparin Sodium/Sodium Chloride (Heparin 34531 Units/250ml 1/2 Normal Saline) 25,000 units in 250 mls @ 14.67 mls/hr IV .Q17H3M PRN; Protocol PRN Reason: ADJUST RATE PER PROTOCOL Last Admin: 01/14/18 08:12 Dose: 20 units/kg/hr, 16.3 mls/hr Sodium Chloride (Sodium Chloride 0.9%) 1,000 mls @ 50 mls/hr IV .Q20H [facility] Last Admin: 01/14/18 11:33 Dose: 50 mls/hr Pantoprazole Sodium (Protonix Ec Tab) 40 mg PO DAILY [facility] Last Admin: 01/14/18 10:49 Dose: 40 mg - Labs Labs: 01/14/18 05:53 01/14/18 05:53 PT 15.3 SECONDS (9.7-12.2) H 01/12/18 17:17 INR 1.4 01/12/18 17:17 APTT 58 SECONDS (21-34) H D 01/14/18 05:53 - Constitutional Appears: Non-toxic, No Acute Distress - Head Exam Head Exam: ATRAUMATIC, NORMAL INSPECTION, NORMOCEPHALIC - Eye Exam Eye Exam: EOMI, Normal appearance - ENT Exam ENT Exam: Mucous Membranes Moist, Normal Exam - Neck Exam Neck Exam: Normal Inspection Additional comments: Right HD catheter - Respiratory Exam Respiratory Exam: Decreased Breath Sounds, Rales, NORMAL BREATHING PATTERN - Cardiovascular Exam Cardiovascular Exam: REGULAR RHYTHM, +S1, +S2. absent: Tachycardia, Murmur - GI/Abdominal Exam GI & Abdominal Exam: Soft, Normal Bowel Sounds. absent: Distended, Tenderness - Extremities Exam Extremities Exam: Normal Inspection. absent: Calf Tenderness, Pedal Edema - Neurological Exam Neurological Exam: Alert, Awake, Oriented x3 - Psychiatric Exam Psychiatric exam: Normal Affect, Normal Mood - Skin Skin Exam: Dry, Intact, Normal Color, Warm Assessment and Plan - Assessment and Plan (Free Text) Assessment: 32 yo male admitted with Left UE/LE weakness/parasthesias, rhabdomyolysis Parasthesias/weakness -improving -MRI lumbar-no acute pathology, spinal stenosis l5-s1 -MRI thoracic-small paracentral disc protrusion right t5-t6 and left c6-7 -Neuro consult, Dr. Rigo Morley PNA -Augmentin 500mg qd Rhabdomyolysis -NS@125/hr SUSHMA, likely 2/2 rhabdo -BUN/Cr 30/4.4 -HD catheter -Nephro consult, Dr. Kim BURNETT DVT -Right antecubital thrombus in cephalic -Heparin drip Transaminitis -likely 2/2 rhabdo -improving Ppx -protonix 40mg po qd -on heparin drip -SCD <Fermin West - Last Filed: 02/22/18 15:23> Attending/Attestation - Attestation I have personally seen and examined this patient.: Yes I have fully participated in the care of the patient.: Yes I have reviewed all pertinent clinical information, including history, physical exam and plan: Yes Notes (Text): 32 yo male admitted with Left UE/LE weakness/parasthesias, rhabdomyolysis Parasthesias/weakness -improving -PT eval/treat -MRI lumbar-no acute pathology, spinal stenosis l5-s1 -MRI thoracic-small paracentral disc protrusion right t5-t6 and left c6-7 -Neuro consult, Dr. Rigo Morley PNA -Augmentin 500mg qd Rhabdomyolysis -NS@50/hr ATN, likely 2/2 rhabdo -worsening -BUN/Cr 40/6.5 -HD catheter right subclavian -NS @50/hr -Nephro consult, Dr. Alvarez DVT -Right antecubital thrombus in cephalic -Left subclavian thrombus -Heparin drip d/c -Eliquis 2.5mg BID Transaminitis -likely 2/2 rhabdo -improving
[2018-01-14] MEDS ORDERED: Amoxicillin-Clav 250-62.5 mg/5 ml Susp (75 ml) PO PRN (14:55)
[2018-01-14] MEDS ORDERED: Sodium Chloride 0.9% 1,000 ML IV SCH (15:15)
[2018-01-14] MEDS: Amoxicillin-Clav 500-125 mg Tab PO SCH (15:34)
--- NOTE | 2018-01-14 15:59 | MRI ---
Date of service: 01/14/2018 PROCEDURE: MR LUMBAR SPINE WITHOUT CONTRAST HISTORY: Left sided weakness COMPARISON: None available. TECHNIQUE: Multiecho multiplanar sequences were performed through the lumbar spine without the use of intravenous contrast. FINDINGS: Normal lumbar lordosis. Borderline congenital spinal stenosis seen at the mid to inferior lumbar spine. Vertebral body heights are preserved. Marrow signal unremarkable. Conus medullaris unremarkable at the level of Paraspinal soft tissues are unremarkable. T12-L1: No disc herniation, spinal canal stenosis or neural foraminal narrowing. L1-2: No disc herniation or neural foraminal stenosis. Lower limits normal central canal volume. L2-3: No disc herniation or neural foraminal stenosis. Lower limits normal central canal volume. L3-4: No disc herniation or neural foraminal stenosis. Borderline central canal stenosis. L4-5: No disc herniation or neural foraminal stenosis. Mild central canal stenosis. L5-S1: No disc herniation or neural foraminal stenosis. [id number] central canal stenosis. OTHER FINDINGS: None. IMPRESSION: No disc herniation or neural foraminal stenosis throughout the lumbar spine. Normal curvature without fracture or spondylolisthesis. No suspicious matter edema. However, limited congenital spinal stenosis appreciated primarily affecting the mid lower levels but minimally affecting the upper lumbar spine. Finding is worst at L5-S1 where [id number] central canal stenosis identified.
--- NOTE | 2018-01-14 16:08 | MRI ---
Date of service: 01/14/2018 PROCEDURE: MR THORACIC SPINE WITHOUT CONTRAST HISTORY: Left sided weakness COMPARISON: None available. TECHNIQUE: Multiecho multiplanar sequences were performed through the thoracic spine without the use of intravenous contrast. FINDINGS: LIMITATIONS: MOTION ARTIFACTS. ALIGNMENT: Normal thoracic spinal alignment. Normal thoracic kyphosis. VERTEBRA: Vertebral body height are preserved. MARROW: Marrow signal unremarkable. PARASPINAL SOFT TISSUES: Unremarkable. CORD: Unremarkable thoracic cord. No volume loss, signal abnormality or syrinx. DISCS: There is a small right paracentral disc protrusion identified at the T5-6 disc interspace and a similar small left paracentral disc protrusion identified at the left paracentral T6-7 level. Both of these appear to encroach or potentially impinge local ventral nerve roots but without stenosis resulting. Remainder the intervertebral discs are unremarkable. No significant central canal or neural foraminal stenosis throughout the exam. OTHER FINDINGS: Incidental bilateral pleural effusions identified, right greater than left. IMPRESSION: Small paracentral disc protrusion identified at the right at T5-6 and at the left at C6-7, encroaching or possibly impinging local ventral nerve roots without significant stenosis resulting. Normal thoracic cord in course caliber contour and intrinsic signal.
--- NOTE | 2018-01-14 21:34 | CARD ---
APPROVED REPORT Date of service: 01/14/2018 EXAM: Two-dimensional and M-mode echocardiogram with Doppler and color Doppler. Other Information Quality : GoodRhythm : INDICATION Renal Failure/ Rhabdomyolysis/ Drug IV abuse RISK FACTORS Hypertension 2D DIMENSIONS IVSd0.9 (0.7-1.1cm)LVDd4.9 (3.9-5.9cm) PWd0.9 (0.7-1.1cm)LA Fmwamp28 (18-58mL) LVDs3.5 (2.5-4.0cm)FS (%) 27.7 % LVEF (%)53.6 (>50%)LVEF (Escoto's)55 % M-Mode DIMENSIONS Left Atrium (MM)3.41 (2.5-4.0cm)IVSd0.80 (0.7-1.1cm) Aortic Root3.97 (2.2-3.7cm)LVDd6.00 (4.0-5.6cm) Aortic Cusp Exc.2.59 (1.5-2.0cm)PWd0.74 (0.7-1.1cm) FS (%) 39 %LVDs3.65 (2.0-3.8cm) LVEF (%)55 (>50%) Mitral Valve MV E Qqleinwb86.9cm/sMV A Vzmgjhtk92.6cm/sE/A ratio1.4 TDI Lateral E' Peak V20.91cm/sMedial E' Peak V8.55cm/sE/Lateral E'3.2 E/Medial E'7.8 Tricuspid Valve TR Peak [id number]/sTR Peak Gr.[id number] LEFT VENTRICLE The Left Ventricle is mildly dilated. There is normal left ventricular wall thickness. Left ventricle systolic function is low normal. The Ejection Fraction is 50-55%. There is mild hypokinesis in the mid-inferolateral wall. The left ventricular diastolic function is normal. No left ventricle thrombus noted on this study. RIGHT VENTRICLE The right ventricle is normal size. The right ventricular systolic function is normal. ATRIA The left atrium size is normal. The right atrium size is normal. AORTIC VALVE The aortic valve is mildly thickened. The aortic valve is trileaflet. No aortic regurgitation is present. There is no aortic valvular stenosis. There is no aortic valvular vegetation. MITRAL VALVE Mitral annular calcification is mild. There is no evidence of mitral valve prolapse. There is no mitral valve stenosis. Mitral regurgitation is mild to moderate. TRICUSPID VALVE The tricuspid valve is normal in structure. There is mild tricuspid regurgitation. Right ventricular systolic pressure is estimated at 30-40 mmHg. There is no pulmonary hypertension. There is no tricuspid valve prolapse or vegetation. There is no tricuspid valve stenosis. PULMONIC VALVE The pulmonic valve is not well visualized. There is no pulmonic valvular regurgitation. There is no pulmonic valvular stenosis. GREAT VESSELS The aortic root is normal in size. The IVC is normal in size and collapses >50% with inspiration. PERICARDIAL EFFUSION There is no pericardial effusion. There is no pleural effusion. <Conclusion> The Left Ventricle is mildly dilated. Left ventricle systolic function is low normal. The Ejection Fraction is 50-55%. There is mild hypokinesis in the mid-inferolateral wall. The left ventricular diastolic function is normal. The right ventricle is normal size. The right ventricular systolic function is normal. The left atrium size is normal. The right atrium size is normal. There is mild tricuspid regurgitation.
[2018-01-14] MEDS: Nystatin 100,000 Units/ml Oral Susp 5 ml UD PO SCH (22:38)
--- NOTE | 2018-01-14 23:21 | CP.PCM.PN ---
Subjective - Date & Time of Evaluation Date of Evaluation: 01/14/18 Time of Evaluation: 13:00 - Subjective Subjective: Reports feeling well; complaining of pain at tunneled cath site; tolerating diet well; no nausea/vomiting; L arm movement improving; Objective - Vital Signs/Intake and Output Vital Signs (last 24 hours): Temp Pulse Resp BP Pulse Ox 98.6 F 76 18 126/76 98 01/14/18 22:00 01/14/18 22:00 01/14/18 22:00 01/14/18 22:00 01/14/18 22:00 Intake and Output: 01/14/18 01/15/18 18:59 06:59 Intake Total 1595.6 Output Total 175 Balance 1420.6 - Medications Medications: Current Medications Amoxicillin/Clavulanate Potassium (Augmentin 500 Mg-125 Mg Tab) 1 tab PO Q24H [facility]; Protocol Last Admin: 01/14/18 15:34 Dose: 1 tab Ascorbic Acid (Vitamin C 500 Mg Tab) 500 mg PO DAILY [facility] Heparin Sodium/Sodium Chloride (Heparin 41026 Units/250ml 1/2 Normal Saline) 25,000 units in 250 mls @ 14.67 mls/hr IV .Q17H3M PRN; Protocol PRN Reason: ADJUST RATE PER PROTOCOL Last Admin: 01/14/18 08:12 Dose: 20 units/kg/hr, 16.3 mls/hr Nystatin (Nystatin Oral Susp) 5 ml PO QID [facility] Last Admin: 01/14/18 22:38 Dose: 5 ml Pantoprazole Sodium (Protonix Ec Tab) 40 mg PO DAILY [facility] Last Admin: 01/14/18 10:49 Dose: 40 mg - Labs Labs: 01/14/18 05:53 01/14/18 05:53 PT 15.3 SECONDS (9.7-12.2) H 01/12/18 17:17 INR 1.4 01/12/18 17:17 APTT 58 SECONDS (21-34) H D 01/14/18 05:53 - Constitutional Appears: Non-toxic, No Acute Distress - Eye Exam Eye Exam: Normal appearance - ENT Exam ENT Exam: Mucous Membranes Moist - Respiratory Exam Respiratory Exam: Clear to Ausculation Bilateral. absent: Respiratory Distress - Cardiovascular Exam Cardiovascular Exam: RRR, +S1, +S2 - GI/Abdominal Exam GI & Abdominal Exam: Soft. absent: Distended, Tenderness - Extremities Exam Additional comments: no leg edema; - Neurological Exam Neurological Exam: Alert, Awake - Psychiatric Exam Psychiatric exam: Normal Mood. absent: Agitated - Skin Skin Exam: Warm. absent: Cyanosis Assessment and Plan (1) Acute renal failure Assessment & Plan: ATN in the setting of severe rhabdo but also with possible contrast injury; oliguric renal failure; serum creatinine continues to trend upward; relatively stable volume and electrolyte status; dialyzing today for both clearance and volume removal; -HD with 2L UF goal over 3.5 hrs; -No role for IVF to correct ATN once it has fully set in; will simply risk volume overload; -Avoid further nephrotoxic agents (IV dye, NSAIDS); -Monitor urine output and daily labs closely for signs of renal recovery; ok to d/c barker if I/O can be accurately recorded; Status: Acute (2) Rhabdomyolysis Assessment & Plan: CK level continues to decline; role of IVF is to prevent kidney injury but doesn't help once it has set in; no need for Ca replenishment (Ca sequestered in affected muscles and will be released once muscles recover); Status: Acute (3) Electrolyte abnormality Status: Acute (4) DVT (deep venous thrombosis) Assessment & Plan: Subacute L subclavian DVT; continue heparin drip for now; Status: Acute
--- NOTE | 2018-01-14 23:25 | CARD ---
APPROVED REPORT Date of service: 01/13/2018 EKG Measurement Heart [id number] <Conclusion> Normal sinus rhythm Normal ECG
[2018-01-15] MEDS: Heparin25000 units/250ml 1/2NS 25,000 UNITS/250 ML BAG IV PRN (02:00)
[2018-01-15 06:31] LABS: BASO % 0.5 % (0.0-2.0); EOS # 0.2 K/uL (0.0-0.7); EOS % 1.9 % (0.0-4.0); HEMOGLOBIN 10.5 g/dL (12.0-18.0); LYMPH # 1.8 K/uL (1.0-4.3); LYMPH % 23.2 % (20.0-40.0); MEAN CELL VOLUME 83.3 fL (80.0-94.0); MEAN CORPUSCULAR HEMOGLOBIN 28.3 pg (27.0-31.0); MEAN PLATELET VOLUME 9.6 fL (7.2-11.7); MONO # 0.5 K/uL (0.0-0.8); MONO % 6.9 % (0.0-10.0); NEUT # 5.3 K/uL (1.8-7.0); NEUT % 67.5 % (50.0-75.0); RBC 3.7 Mil/uL (4.40-5.90); WHITE BLOOD COUNT 7.9 K/uL (4.8-10.8)
[2018-01-15 07:04] LABS: ALB/GLOB RATIO 1.2 (1.0-2.1); ALBUMIN 2.9 g/dL (3.5-5.0); CALCIUM 8.1 mg/dl (8.6-10.4)
[2018-01-15] MEDS: Pantoprazole 40 mg EC Tab PO SCH (11:08)
[2018-01-15] MEDS: Nystatin 100,000 Units/ml Oral Susp 5 ml UD PO SCH ×4 (11:09→22:16)
--- NOTE | 2018-01-15 13:01 | CP.PCM.PN ---
<Reji Starks - Last Filed: 01/15/18 13:05> Subjective - Date & Time of Evaluation Date of Evaluation: 01/15/18 Time of Evaluation: 13:01 - Subjective Subjective: Neurology Progress Note: Patient seen and examined at bedside. Per nursing, no acute events occurred overnight. Patient still reports some left foot numbness during visit. He denies any chest pain, shortness of breath, dizziness, or any other complaints. Objective - Vital Signs/Intake and Output Vital Signs (last 24 hours): Temp Pulse Resp BP Pulse Ox 98.1 F 45 L 16 137/87 96 01/15/18 09:50 01/15/18 11:39 01/15/18 09:50 01/15/18 12:25 01/15/18 02:00 Intake and Output: 01/15/18 01/15/18 06:59 18:59 Intake Total 597.8 420 Output Total 150 200 Balance 447.8 220 - Medications Medications: Current Medications Amoxicillin/Clavulanate Potassium (Augmentin 500 Mg-125 Mg Tab) 1 tab PO Q24H [facility]; Protocol Last Admin: 01/14/18 15:34 Dose: 1 tab Ascorbic Acid (Vitamin C 500 Mg Tab) 500 mg PO DAILY [facility] Last Admin: 01/15/18 11:08 Dose: 500 mg Heparin Sodium/Sodium Chloride (Heparin 03217 Units/250ml 1/2 Normal Saline) 25,000 units in 250 mls @ 14.67 mls/hr IV .Q17H3M PRN; Protocol PRN Reason: ADJUST RATE PER PROTOCOL Last Admin: 01/15/18 02:00 Dose: 20 units/kg/hr, 16.3 mls/hr Nystatin (Nystatin Oral Susp) 5 ml PO QID [facility] Last Admin: 01/15/18 11:09 Dose: 5 ml Pantoprazole Sodium (Protonix Ec Tab) 40 mg PO DAILY [facility] Last Admin: 01/15/18 11:08 Dose: 40 mg - Labs Labs: 01/15/18 06:21 01/15/18 06:19 PT 15.3 SECONDS (9.7-12.2) H 01/12/18 17:17 INR 1.4 01/12/18 17:17 APTT 46 SECONDS (21-34) H D 01/15/18 06:21 - Head Exam Head Exam: ATRAUMATIC, NORMAL INSPECTION - Eye Exam Eye Exam: EOMI, Normal appearance, PERRL Pupil Exam: NORMAL ACCOMODATION, PERRL - ENT Exam ENT Exam: Mucous Membranes Moist, Normal Oropharynx - Respiratory Exam Respiratory Exam: Clear to Ausculation Bilateral, NORMAL BREATHING PATTERN. absent: Prolonged Expiratory Phase, Respiratory Distress - Cardiovascular Exam Cardiovascular Exam: REGULAR RHYTHM, +S1, +S2 - GI/Abdominal Exam GI & Abdominal Exam: Soft, Normal Bowel Sounds. absent: Hyperactive Bowel Sounds - Extremities Exam Extremities Exam: absent: Pedal Edema Additional comments: Left foot decrease in dorsiflexion - Neurological Exam Neurological Exam: Alert, Awake, CN II-XII Intact Neuro motor strength exam: Left Upper Extremity: 5, Right Upper Extremity: 5, Left Lower Extremity: 4, Right Lower Extremity: 5 - Psychiatric Exam Psychiatric exam: Normal Affect, Normal Mood Assessment and Plan - Assessment and Plan (Free Text) Assessment: 32 yo male admitted with Left UE/LE weakness/parasthesias, rhabdomyolysis Plan: 1.Left sided weakness -CT head: :Negative -Brain MRI w/o contrast ordered. Will f/u with results -Cervical spine MRI : disc bulging C5-6 encrouaches ventral nerve roots -Lumbar spine MRI :Central canal spinal stenosis at L5-S1 (mild-moderate central canal stenosis) -Thoracic spine MRI :small paracentral disc protrusion at T5-6 AND C6-7 encroaching on ventral nerve roots -PT/OT Plan discussed with Dr. Gail Starks,PGY-2 <Chris Reynolds - Last Filed: 01/17/18 14:52> Objective - Vital Signs/Intake and Output Vital Signs (last 24 hours): Temp Pulse Resp BP Pulse Ox 98.2 F 60 20 147/84 97 01/17/18 07:18 01/17/18 07:18 01/17/18 07:18 01/17/18 07:18 01/17/18 07:18 Intake and Output: 01/17/18 01/17/18 06:59 18:59 Intake Total 240 Balance 240 - Medications Medications: Current Medications Amoxicillin/Clavulanate Potassium (Augmentin 500 Mg-125 Mg Tab) 1 tab PO Q24H [facility]; Protocol Last Admin: 01/16/18 14:17 Dose: 1 tab Apixaban (Eliquis) 2.5 mg PO BID [facility] Last Admin: 01/17/18 09:53 Dose: 2.5 mg Ascorbic Acid (Vitamin C 500 Mg Tab) 500 mg PO DAILY [facility] Last Admin: 01/17/18 09:14 Dose: 500 mg Nystatin (Nystatin Oral Susp) 5 ml PO QID [facility] Last Admin: 01/17/18 13:13 Dose: 5 ml Pantoprazole Sodium (Protonix Ec Tab) 40 mg PO DAILY [facility] Last Admin: 01/17/18 09:14 Dose: 40 mg - Labs Labs: 01/17/18 07:48 01/17/18 07:48 PT 15.3 SECONDS (9.7-12.2) H 01/12/18 17:17 INR 1.4 01/12/18 17:17 APTT 46 SECONDS (21-34) H D 01/15/18 06:21 Attending/Attestation - Attestation I have personally seen and examined this patient.: Yes I have fully participated in the care of the patient.: Yes I have reviewed all pertinent clinical information, including history, physical exam and plan: Yes Notes (Text): 01/17/18 14:50 I agree with the assessment and plan. Consider neurosurgical consultation for nerve root compression and weakness. He will likely need PT/OT. 01/17/18 14:50 01/17/18 14:51
[2018-01-15] MEDS: Amoxicillin-Clav 500-125 mg Tab PO SCH (16:33)
[2018-01-15] MEDS ORDERED: Sodium Chloride 0.9% 1,000 ML IV SCH (16:45)
--- NOTE | 2018-01-15 16:47 | CP.PCM.PN ---
<Sunshine Whitney - Last Filed: 01/15/18 20:14> Subjective - Date & Time of Evaluation Date of Evaluation: 01/15/18 Time of Evaluation: 09:40 - Subjective Subjective: Patient examined at bedside. No acute events overnight. Nursing reports patient had difficulty sleeping overnight, and was given benadryl. Pt denies chest pain, SOB, nausea, diarrhea. Pt reports improvement in left arm and leg movement and increased sensation. Objective - Vital Signs/Intake and Output Vital Signs (last 24 hours): Temp Pulse Resp BP Pulse Ox 97.9 F 45 L 18 132/84 96 01/15/18 13:57 01/15/18 11:39 01/15/18 13:57 01/15/18 13:57 01/15/18 02:00 Intake and Output: 01/15/18 01/15/18 06:59 18:59 Intake Total 597.8 420 Output Total 150 480 Balance 447.8 -60 - Medications Medications: Current Medications Amoxicillin/Clavulanate Potassium (Augmentin 500 Mg-125 Mg Tab) 1 tab PO Q24H [facility]; Protocol Last Admin: 01/15/18 16:33 Dose: 1 tab Apixaban (Eliquis) 2.5 mg PO BID [facility] Ascorbic Acid (Vitamin C 500 Mg Tab) 500 mg PO DAILY [facility] Last Admin: 01/15/18 11:08 Dose: 500 mg Sodium Chloride (Sodium Chloride 0.9%) 1,000 mls @ 50 mls/hr IV .Q20H [facility] Nystatin (Nystatin Oral Susp) 5 ml PO QID [facility] Last Admin: 01/15/18 16:33 Dose: 5 ml Pantoprazole Sodium (Protonix Ec Tab) 40 mg PO DAILY [facility] Last Admin: 01/15/18 11:08 Dose: 40 mg - Labs Labs: 01/15/18 06:21 01/15/18 06:19 PT 15.3 SECONDS (9.7-12.2) H 01/12/18 17:17 INR 1.4 01/12/18 17:17 APTT 46 SECONDS (21-34) H D 01/15/18 06:21 - Constitutional Appears: No Acute Distress - Head Exam Head Exam: ATRAUMATIC, NORMAL INSPECTION, NORMOCEPHALIC - ENT Exam ENT Exam: Mucous Membranes Moist, Normal Exam - Neck Exam Neck Exam: Normal Inspection - Respiratory Exam Respiratory Exam: Rales (right lower), NORMAL BREATHING PATTERN. absent: Respiratory Distress - Cardiovascular Exam Cardiovascular Exam: REGULAR RHYTHM, +S1, +S2. absent: Tachycardia, Murmur - GI/Abdominal Exam GI & Abdominal Exam: Soft, Normal Bowel Sounds. absent: Distended, Tenderness - Extremities Exam Extremities Exam: Normal Inspection. absent: Calf Tenderness, Pedal Edema - Neurological Exam Neurological Exam: Alert, Awake, Oriented x3 - Psychiatric Exam Psychiatric exam: Normal Affect, Normal Mood - Skin Skin Exam: Dry, Intact, Normal Color, Warm Assessment and Plan - Assessment and Plan (Free Text) Assessment: 32 yo male admitted with Left UE/LE weakness/parasthesias, rhabdomyolysis Parasthesias/weakness -improving -PT eval/treat -MRI lumbar-no acute pathology, spinal stenosis l5-s1 -MRI thoracic-small paracentral disc protrusion right t5-t6 and left c6-7 -Neuro consult, Dr. Sierra Aspiration PNA -Augmentin 500mg qd Rhabdomyolysis -NS@50/hr ATN, likely 2/2 rhabdo -worsening -BUN/Cr 40/6.5 -HD catheter right subclavian -NS @50/hr -Nephro consult, Dr. Alvarez DVT -Right antecubital thrombus in cephalic -Left subclavian thrombus -Heparin drip d/c -Eliquis 2.5mg BID Transaminitis -likely 2/2 rhabdo -improving Ppx -protonix 40mg po qd -SCD <Fermin West - Last Filed: 02/22/18 15:21> Attending/Attestation - Attestation I have personally seen and examined this patient.: Yes I have fully participated in the care of the patient.: Yes I have reviewed all pertinent clinical information, including history, physical exam and plan: Yes Notes (Text): 32 yo male admitted with Left UE/LE weakness/parasthesias, rhabdomyolysis, Drug abuse Parasthesias/weakness -improving -PT eval/treat -MRI lumbar-no acute pathology, spinal stenosis l5-s1 -MRI thoracic-small paracentral disc protrusion right t5-t6 and left c6-7 -Neuro consult, Dr. Sierra Aspiration PNA -Augmentin 500mg qd Rhabdomyolysis -NS@50/hr ATN, likely 2/2 rhabdo -worsening -BUN/Cr 40/6.5 -HD catheter right subclavian -NS @50/hr -Nephro consult, Dr. Alvarez DVT -Right antecubital thrombus in cephalic -Left subclavian thrombus -Heparin drip d/c -Eliquis 2.5mg BID Transaminitis -likely 2/2 rhabdo -improving
--- NOTE | 2018-01-15 23:18 | CP.PCM.PN ---
Subjective - Date & Time of Evaluation Date of Evaluation: 01/15/18 Time of Evaluation: 15:00 - Subjective Subjective: 32 yo M w/ pmh of CHANG, admitted to [facility] with severe rhabdomyolysis in the setting of likely prolonged compression of upper extremity muscle compartment (though no compartment syndrome) as well as cocaine use, transferred to [facility] for acute oliguric renal failure needing urgent HD for hyperkalemia and metabolic acidosis; Reports feeling well; tolerating diet; urinating small amounts; Objective - Vital Signs/Intake and Output Vital Signs (last 24 hours): Temp Pulse Resp BP Pulse Ox 98.6 F 72 18 132/84 97 01/15/18 16:00 01/15/18 18:00 01/15/18 13:57 01/15/18 13:57 01/15/18 16:00 Intake and Output: 01/15/18 01/16/18 18:59 06:59 Intake Total 983 700 Output Total 480 Balance 503 700 - Medications Medications: Current Medications Amoxicillin/Clavulanate Potassium (Augmentin 500 Mg-125 Mg Tab) 1 tab PO Q24H [facility]; Protocol Last Admin: 01/15/18 16:33 Dose: 1 tab Apixaban (Eliquis) 2.5 mg PO BID [facility] Last Admin: 01/15/18 17:33 Dose: 2.5 mg Ascorbic Acid (Vitamin C 500 Mg Tab) 500 mg PO DAILY [facility] Last Admin: 01/15/18 11:08 Dose: 500 mg Sodium Chloride (Sodium Chloride 0.9%) 1,000 mls @ 50 mls/hr IV .Q20H [facility] Last Admin: 01/15/18 17:28 Dose: 50 mls/hr Nystatin (Nystatin Oral Susp) 5 ml PO QID [facility] Last Admin: 01/15/18 18:51 Dose: 5 ml Pantoprazole Sodium (Protonix Ec Tab) 40 mg PO DAILY [facility] Last Admin: 01/15/18 11:08 Dose: 40 mg - Labs Labs: 01/15/18 06:21 01/15/18 06:19 PT 15.3 SECONDS (9.7-12.2) H 01/12/18 17:17 INR 1.4 01/12/18 17:17 APTT 46 SECONDS (21-34) H D 01/15/18 06:21 Assessment and Plan (1) Acute renal failure Assessment & Plan: ATN, oliguric renal failure in the setting of severe rhabdo; tolerated HD today with 2.5L UF goal; will continue with HD on MWF schedule until renal recovery occurs; Given IV drug use history, discharging patient to outpatient unit with HD catheter is risky; will need to wait a few weeks to see if kidneys recover; -Avoid nephrotoxic agents; -Ok to give gentle IVF for maintenance; Status: Acute (2) Rhabdomyolysis Status: Acute (3) Electrolyte abnormality Status: Acute (4) DVT (deep venous thrombosis) Assessment & Plan: Discussed with primary team; L subacute subclavian throbmus of unclear etiology; will give eliquis during admission, will d/c home on just ASA; Status: Acute
[2018-01-16 06:39] LABS: BASO % 0.6 % (0.0-2.0); EOS # 0.3 K/uL (0.0-0.7); EOS % 3.6 % (0.0-4.0); HEMOGLOBIN 10.8 g/dL (12.0-18.0); LYMPH # 1.9 K/uL (1.0-4.3); LYMPH % 24.6 % (20.0-40.0); MEAN CELL VOLUME 82.3 fL (80.0-94.0); MEAN CORPUSCULAR HEMOGLOBIN 28.2 pg (27.0-31.0); MEAN CORPUSCULAR HGB CONC 34.3 g/dL (33.0-37.0); MEAN PLATELET VOLUME 7.9 fL (7.2-11.7); MONO # 0.8 K/uL (0.0-0.8); MONO % 11.2 % (0.0-10.0); NEUT # 4.5 K/uL (1.8-7.0); RBC 3.82 Mil/uL (4.40-5.90); RED CELL DISTRIBUTION WIDTH 14.9 % (11.5-14.5); WHITE BLOOD COUNT 7.5 K/uL (4.8-10.8)
[2018-01-16 07:10] LABS: ALB/GLOB RATIO 1.2 (1.0-2.1); ALBUMIN 2.8 g/dL (3.5-5.0); CALCIUM 8.3 mg/dl (8.6-10.4)
[2018-01-16] MEDS: Pantoprazole 40 mg EC Tab PO SCH (09:22)
[2018-01-16] MEDS: Nystatin 100,000 Units/ml Oral Susp 5 ml UD PO SCH ×4 (09:22→21:46)
--- NOTE | 2018-01-16 09:23 | CP.PCM.PN ---
Subjective - Date & Time of Evaluation Date of Evaluation: 01/16/18 Time of Evaluation: 08:00 - Subjective Subjective: PGY-1 progress note for hospitalist service. Patient seen and evaluated. Has no complaints at this time. Denies fevers, chills, nausea, vomiting, abdominal pain, chest pain and shortness of breath. Objective - Vital Signs/Intake and Output Vital Signs (last 24 hours): Temp Pulse Resp BP Pulse Ox 98.1 F 55 L 18 131/71 97 01/16/18 08:22 01/16/18 04:00 01/16/18 08:22 01/16/18 08:22 01/16/18 08:22 Intake and Output: 01/16/18 01/16/18 06:59 18:59 Intake Total 1510 640 Output Total 250 350 Balance 1260 290 - Medications Medications: Current Medications Amoxicillin/Clavulanate Potassium (Augmentin 500 Mg-125 Mg Tab) 1 tab PO Q24H [facility]; Protocol Last Admin: 01/15/18 16:33 Dose: 1 tab Apixaban (Eliquis) 2.5 mg PO BID [facility] Last Admin: 01/15/18 17:33 Dose: 2.5 mg Ascorbic Acid (Vitamin C 500 Mg Tab) 500 mg PO DAILY [facility] Last Admin: 01/15/18 11:08 Dose: 500 mg Nystatin (Nystatin Oral Susp) 5 ml PO QID [facility] Last Admin: 01/15/18 22:16 Dose: 5 ml Pantoprazole Sodium (Protonix Ec Tab) 40 mg PO DAILY [facility] Last Admin: 01/15/18 11:08 Dose: 40 mg - Labs Labs: 01/16/18 06:34 01/16/18 06:34 PT 15.3 SECONDS (9.7-12.2) H 01/12/18 17:17 INR 1.4 01/12/18 17:17 APTT 46 SECONDS (21-34) H D 01/15/18 06:21 - Head Exam Head Exam: ATRAUMATIC, NORMOCEPHALIC - Eye Exam Eye Exam: EOMI - ENT Exam ENT Exam: Mucous Membranes Moist - Respiratory Exam Respiratory Exam: Decreased Breath Sounds. absent: Rales, Rhonchi, Wheezes - Cardiovascular Exam Cardiovascular Exam: REGULAR RHYTHM, +S1, +S2 - GI/Abdominal Exam GI & Abdominal Exam: Soft, Normal Bowel Sounds. absent: Guarding, Tenderness, Rebound - Extremities Exam Extremities Exam: Full ROM. absent: Joint Swelling, Tenderness - Neurological Exam Neurological Exam: Alert, Awake, Oriented x3 - Psychiatric Exam Psychiatric exam: Normal Affect - Skin Skin Exam: Dry, Normal Color, Warm Assessment and Plan - Assessment and Plan (Free Text) Plan: 32 yo male admitted with Left UE/LE weakness/parasthesias, rhabdomyolysis Parasthesias/weakness -improving -PT eval/treat -MRI lumbar-no acute pathology, spinal stenosis l5-s1 -MRI thoracic-small paracentral disc protrusion right t5-t6 and left c6-7 -Neuro consult, Dr. Rigo Morley PNA -Augmentin 500mg qd Rhabdomyolysis -NS@50/hr ATN, likely 2/2 rhabdo -worsening -BUN/Cr 40/6.5 -HD catheter right subclavian -NS @50/hr -Nephro consult, Dr. Alvarez DVT -Right antecubital thrombus in cephalic -Left subclavian thrombus -Heparin drip d/c -Eliquis 2.5mg BID Transaminitis -likely 2/2 rhabdo -improving Ppx -protonix 40mg po qd -SCD
[2018-01-16] MEDS: Amoxicillin-Clav 500-125 mg Tab PO SCH (14:17)
--- NOTE | 2018-01-16 22:31 | CP.PCM.PN ---
Subjective - Date & Time of Evaluation Date of Evaluation: 01/16/18 Time of Evaluation: 18:00 - Subjective Subjective: SEEN IN ICU ON RENAL F/U COVERING DR DAVIS ON HD M W F AND ON IVF FOR ACI AND RHABDO VSS Objective - Vital Signs/Intake and Output Vital Signs (last 24 hours): Temp Pulse Resp BP Pulse Ox 98.4 F 67 18 142/80 97 01/16/18 16:00 01/16/18 20:00 01/16/18 20:00 01/16/18 20:00 01/16/18 16:00 Intake and Output: 01/16/18 01/17/18 18:59 06:59 Intake Total 1340 240 Output Total 800 Balance 540 240 - Medications Medications: Current Medications Amoxicillin/Clavulanate Potassium (Augmentin 500 Mg-125 Mg Tab) 1 tab PO Q24H [facility]; Protocol Last Admin: 01/16/18 14:17 Dose: 1 tab Apixaban (Eliquis) 2.5 mg PO BID [facility] Last Admin: 01/16/18 18:28 Dose: 2.5 mg Ascorbic Acid (Vitamin C 500 Mg Tab) 500 mg PO DAILY [facility] Last Admin: 01/16/18 09:22 Dose: 500 mg Nystatin (Nystatin Oral Susp) 5 ml PO QID [facility] Last Admin: 01/16/18 21:46 Dose: 5 ml Pantoprazole Sodium (Protonix Ec Tab) 40 mg PO DAILY [facility] Last Admin: 01/16/18 09:22 Dose: 40 mg - Labs Labs: 01/16/18 06:34 01/16/18 06:34 PT 15.3 SECONDS (9.7-12.2) H 01/12/18 17:17 INR 1.4 01/12/18 17:17 APTT 46 SECONDS (21-34) H D 01/15/18 06:21 Assessment and Plan - Assessment and Plan (Free Text) Assessment: Assessment & Plan: ATN, oliguric renal failure in the setting of severe rhabdo; tolerated HD YESTERDAY with 2.5L UF goal; will continue with HD on MWF schedule until renal recovery occurs; Given IV drug use history, discharging patient to outpatient unit with HD catheter is risky; will need to wait a few weeks to see if kidneys recover; -Avoid nephrotoxic agents; -Ok to give gentle IVF for maintenance; Status: Acute (2) Rhabdomyolysis Status: Acute (3) Electrolyte abnormality Status: Acute (4) DVT (deep venous thrombosis) Assessment & Plan: Discussed with primary team; L subacute subclavian throbmus of unclear etiology; will give eliquis during admission, will d/c home on just ASA; Status: Acute
[2018-01-17 08:04] LABS: BASO # 0.1 K/uL (0.0-0.2); BASO % 0.7 % (0.0-2.0); EOS # 0.4 K/uL (0.0-0.7); EOS % 4.5 % (0.0-4.0); HEMOGLOBIN 11.5 g/dL (12.0-18.0); MEAN CELL VOLUME 82.8 fL (80.0-94.0); MEAN CORPUSCULAR HEMOGLOBIN 29.2 pg (27.0-31.0); MEAN CORPUSCULAR HGB CONC 35.3 g/dL (33.0-37.0); MONO % 11.1 % (0.0-10.0); NEUT # 5.9 K/uL (1.8-7.0); NEUT % 62.7 % (50.0-75.0); RBC 3.94 Mil/uL (4.40-5.90); RED CELL DISTRIBUTION WIDTH 14.9 % (11.5-14.5); WHITE BLOOD COUNT 9.4 K/uL (4.8-10.8)
[2018-01-17 08:38] LABS: ALB/GLOB RATIO 1.1 (1.0-2.1); ALBUMIN 2.8 g/dL (3.5-5.0); CALCIUM 8.4 mg/dl (8.6-10.4)
[2018-01-17] MEDS: Pantoprazole 40 mg EC Tab PO SCH (09:14)
[2018-01-17] MEDS: Nystatin 100,000 Units/ml Oral Susp 5 ml UD PO SCH ×4 (09:14→21:52)
--- NOTE | 2018-01-17 09:47 | CP.PCM.PN ---
<India Manriquez P - Last Filed: 01/17/18 09:45> Subjective - Date & Time of Evaluation Date of Evaluation: 01/17/18 Time of Evaluation: 05:00 - Subjective Subjective: PGY-1 progress note for hospitalist service. Patient seen and examined at bedside. Patient given benadryll overnight for sleep. States she feels "the same." has no complaints at this time. Denies fever, chills, nausea, vomiting, fever, chills, abdominal pian Objective - Vital Signs/Intake and Output Vital Signs (last 24 hours): Temp Pulse Resp BP Pulse Ox 98.2 F 60 20 147/84 97 01/17/18 07:18 01/17/18 07:18 01/17/18 07:18 01/17/18 07:18 01/17/18 07:18 Intake and Output: 01/17/18 01/17/18 06:59 18:59 Intake Total 240 Balance 240 - Medications Medications: Current Medications Amoxicillin/Clavulanate Potassium (Augmentin 500 Mg-125 Mg Tab) 1 tab PO Q24H [facility]; Protocol Last Admin: 01/16/18 14:17 Dose: 1 tab Apixaban (Eliquis) 2.5 mg PO BID [facility] Last Admin: 01/16/18 18:28 Dose: 2.5 mg Ascorbic Acid (Vitamin C 500 Mg Tab) 500 mg PO DAILY [facility] Last Admin: 01/17/18 09:14 Dose: 500 mg Nystatin (Nystatin Oral Susp) 5 ml PO QID [facility] Last Admin: 01/17/18 09:14 Dose: 5 ml Pantoprazole Sodium (Protonix Ec Tab) 40 mg PO DAILY [facility] Last Admin: 01/17/18 09:14 Dose: 40 mg - Labs Labs: 01/17/18 07:48 01/17/18 07:48 PT 15.3 SECONDS (9.7-12.2) H 01/12/18 17:17 INR 1.4 01/12/18 17:17 APTT 46 SECONDS (21-34) H D 01/15/18 06:21 - Additional Findings Additional findings: - Head Exam Head Exam: ATRAUMATIC, NORMOCEPHALIC - Eye Exam Eye Exam: EOMI - ENT Exam ENT Exam: Mucous Membranes Moist - Respiratory Exam Respiratory Exam: Decreased Breath Sounds. absent: Rales, Rhonchi, Wheezes - Cardiovascular Exam Cardiovascular Exam: REGULAR RHYTHM, +S1, +S2 - GI/Abdominal Exam GI & Abdominal Exam: Soft, Normal Bowel Sounds. absent: Guarding, Tenderness, Rebound - Extremities Exam Extremities Exam: Full ROM. absent: Joint Swelling, Tenderness - Neurological Exam Neurological Exam: Alert, Awake, Oriented x3 - Psychiatric Exam Psychiatric exam: Normal Affect - Skin Skin Exam: Dry, Normal Color, Warm Assessment and Plan - Assessment and Plan (Free Text) Plan: 32 yo male admitted with Left UE/LE weakness/parasthesias, rhabdomyolysis Parasthesias/weakness -improving -PT eval/treat -MRI lumbar-no acute pathology, spinal stenosis l5-s1 -MRI thoracic-small paracentral disc protrusion right t5-t6 and left c6-7 -Neuro consult, Dr. Fatoumata Morley PNA -Augmentin 500mg qd ATN, likely 2/2 rhabdo -worsening -BUN/Cr 45/5.3 -Nephro consult, Dr. Alvarez DVT -Right antecubital thrombus in cephalic -Left subclavian thrombus -Heparin drip d/c -Eliquis 2.5mg BID Transaminitis -likely 2/2 rhabdo -improving Ppx -protonix 40mg po qd -SCD <Sneha Berman V - Last Filed: 01/17/18 10:56> Objective - Vital Signs/Intake and Output Vital Signs (last 24 hours): Temp Pulse Resp BP Pulse Ox 98.2 F 60 20 147/84 97 01/17/18 07:18 01/17/18 07:18 01/17/18 07:18 01/17/18 07:18 01/17/18 07:18 Intake and Output: 01/17/18 01/17/18 06:59 18:59 Intake Total 240 Balance 240 - Medications Medications: Current Medications Amoxicillin/Clavulanate Potassium (Augmentin 500 Mg-125 Mg Tab) 1 tab PO Q24H [facility]; Protocol Last Admin: 01/16/18 14:17 Dose: 1 tab Apixaban (Eliquis) 2.5 mg PO BID [facility] Last Admin: 01/17/18 09:53 Dose: 2.5 mg Ascorbic Acid (Vitamin C 500 Mg Tab) 500 mg PO DAILY [facility] Last Admin: 01/17/18 09:14 Dose: 500 mg Nystatin (Nystatin Oral Susp) 5 ml PO QID [facility] Last Admin: 01/17/18 09:14 Dose: 5 ml Pantoprazole Sodium (Protonix Ec Tab) 40 mg PO DAILY [facility] Last Admin: 01/17/18 09:14 Dose: 40 mg - Labs Labs: 01/17/18 07:48 01/17/18 07:48 PT 15.3 SECONDS (9.7-12.2) H 01/12/18 17:17 INR 1.4 01/12/18 17:17 APTT 46 SECONDS (21-34) H D 01/15/18 06:21 Attending/Attestation - Attestation I have personally seen and examined this patient.: Yes I have fully participated in the care of the patient.: Yes I have reviewed all pertinent clinical information, including history, physical exam and plan: Yes Notes (Text): Patient seen and examined at bedside. Patient reports he is feeling okay. He reports some irritation around the dialysis access. Patient denies fever, denies chills, denies chest pain, denies shortness of breathe, denies abdominal pain, denies nausea, denies vomitting, and reports he is urinating. patient reports drug use; heroin about 12 years as well as cocaine use. I did ask him point blank what is his plan in regards to quitting drugs and does not have a plan. I did indicate to him that continued drug use via IV will cause further damage to the body. Nephrology has expressed concerned regarding to setting him up for outpatient HD given his risky behavior. ordered for chest xray PA and lateral to monitor opacity; patient is on abx to cover for pneumonia updated assessment/plan Assessment/Plan 1) Rhabdomyolosis; ATN Assessment/Plan * elevated on admission * started on dialysis on this admission * ordered for repeat cpk for today and tomorrow * no role of IV fluids per nephrology 2) Acute Kidney Failure Assessment/Plan * Nephrology (Dr. Alvarez) on consult help appreciated * Dialysis is on Thursday, Thursday, and Thursday * Right IJV catheter placement 01/13/18 * no role of IV fluids per nephrology 3) Hyperkalemia Assessment/Plan * normalized 4) Left Cephalic vein thrombosis Assessment/Plan Likely attributed to IVDA * patient is on Eliquis 2.5mg PO BID * venous doppler (01/13/18): acute thrombosis of the right antecubital cephalic vein with severe reduction of venous return * subacute/chronic partially recannulized left subclavian DVT (01/11/18) 5) IVDA use specifically heroin and cocaine Assessment/Plan * UDS: positive opiate and cocaine 6) Left rm and left leg weakness Assessment/Plan * neurology (Dr. goodwin/fatoumata) on case * Brain MRI: no acute or subacute brain infarction, mass effect, or hydrocephalus, no suspicious extra-axial collection of definite intracranial hemorrhage. Minimal congential or possible postraumatic occipital lobe posteriorly * Cervical MRI: no disc herniation or severe stenosis appreciated throughout the examination. limited disc bulging C5-C6 * Lumbar MRI: no disc herniation or neural foraminal stenosis throughout the lumbar spine. Normal curvature without fracture or spondlyilisthesis. no suspicious matter edema. * Thoracic MRI: small paracentral disc protrusion idenfied at the right at T5-T6 and at left C6-C&, encroaching or possible impinging local ventral ventral roots without significant stenosis resulting. Normal thoracic cord in caliber 7) Transaminitis Assessment/Plan * Downtrending * hepatitis panel negative * HIV nonreactive 8) Pneumonia Assessment/Plan * Chest xray: right basilar opacity; attributed to aspiration * Ordered for Chest PA and Lateral * Augmentin 1 tab PO 24H (active since 01/14/18) * Vitamin C 500mg PO daily 9) Prophylactic measure * Eliquis 2.5mg PO BID * Protonix 40mg PO daily * SCDS b/l
--- NOTE | 2018-01-17 13:50 | RAD ---
Date of service: 01/17/2018 HISTORY: opacity COMPARISON: Comparison chest 01/13/2018 TECHNIQUE: Chest PA and lateral FINDINGS: In situ right IJ dialysis catheter with tips in the SVC LUNGS: Patchy atelectasis and/or infiltrate right lung base with right-sided effusion improved from prior exam. Minor left basilar atelectasis with tiny left effusion. PLEURA: As above. No pneumothorax apparent. CARDIOVASCULAR: Normal. OSSEOUS STRUCTURES: No significant abnormalities. VISUALIZED UPPER ABDOMEN: Normal. OTHER FINDINGS: None. IMPRESSION: Patchy atelectasis and/or infiltrate right lung base with right-sided effusion improved from prior exam. Minor left basilar atelectasis with tiny left effusion.
[2018-01-17] MEDS: Amoxicillin-Clav 500-125 mg Tab PO SCH (15:31)
[2018-01-18 06:47] LABS: ALB/GLOB RATIO 1.2 (1.0-2.1); ALBUMIN 2.9 g/dL (3.5-5.0); CALCIUM 8.5 mg/dl (8.6-10.4)
[2018-01-18 07:10] LABS: BASO # 0.1 K/uL (0.0-0.2); BASO % 0.5 % (0.0-2.0); EOS # 0.5 K/uL (0.0-0.7); EOS % 4.8 % (0.0-4.0); HEMOGLOBIN 11.5 g/dL (12.0-18.0); LYMPH # 2.1 K/uL (1.0-4.3); LYMPH % 20.6 % (20.0-40.0); MEAN CELL VOLUME 82.7 fL (80.0-94.0); MEAN CORPUSCULAR HEMOGLOBIN 29.1 pg (27.0-31.0); MEAN CORPUSCULAR HGB CONC 35.2 g/dL (33.0-37.0); MEAN PLATELET VOLUME 8.7 fL (7.2-11.7); MONO # 1.1 K/uL (0.0-0.8); MONO % 10.8 % (0.0-10.0); NEUT # 6.5 K/uL (1.8-7.0); NEUT % 63.3 % (50.0-75.0); RBC 3.97 Mil/uL (4.40-5.90); RED CELL DISTRIBUTION WIDTH 15.2 % (11.5-14.5); WHITE BLOOD COUNT 10.3 K/uL (4.8-10.8)
--- NOTE | 2018-01-18 09:23 | CP.PCM.PN ---
<Sunshine Whitney - Last Filed: 01/18/18 17:17> Subjective - Date & Time of Evaluation Date of Evaluation: 01/18/18 Time of Evaluation: 07:45 - Subjective Subjective: Pt examined at bedside. No acute events overnight. Pt reports he has continued difficulty sleeping at night. Pt reports left UE/LE parasthesias improving, and motor function is almost completely restored. Pt reports he is producing good urine, 10+ episodes yesterday, and yellow in color. Pt reports improvement in complaints of right UE/LE swelling. Denies chest pain, SOB, abd pain, nausea, diarrhea. Objective - Vital Signs/Intake and Output Vital Signs (last 24 hours): Temp Pulse Resp BP Pulse Ox 98.2 F 73 20 146/77 95 01/18/18 07:02 01/18/18 07:02 01/18/18 07:02 01/18/18 07:02 01/18/18 07:02 - Medications Medications: Current Medications Amoxicillin/Clavulanate Potassium (Augmentin 500 Mg-125 Mg Tab) 1 tab PO Q24H [facility]; Protocol Last Admin: 01/17/18 15:31 Dose: 1 tab Apixaban (Eliquis) 2.5 mg PO BID [facility] Last Admin: 01/17/18 17:52 Dose: 2.5 mg Ascorbic Acid (Vitamin C 500 Mg Tab) 500 mg PO DAILY [facility] Last Admin: 01/17/18 09:14 Dose: 500 mg Nystatin (Nystatin Oral Susp) 5 ml PO QID [facility] Last Admin: 01/17/18 21:52 Dose: 5 ml Pantoprazole Sodium (Protonix Ec Tab) 40 mg PO DAILY [facility] Last Admin: 01/17/18 09:14 Dose: 40 mg - Labs Labs: 01/18/18 06:25 01/18/18 06:25 PT 15.3 SECONDS (9.7-12.2) H 01/12/18 17:17 INR 1.4 01/12/18 17:17 APTT 46 SECONDS (21-34) H D 01/15/18 06:21 - Constitutional Appears: No Acute Distress - Head Exam Head Exam: ATRAUMATIC, NORMAL INSPECTION, NORMOCEPHALIC - Eye Exam Eye Exam: EOMI, Normal appearance - ENT Exam ENT Exam: Mucous Membranes Moist, Normal Exam - Neck Exam Neck Exam: Normal Inspection - Respiratory Exam Respiratory Exam: Clear to Ausculation Bilateral, NORMAL BREATHING PATTERN. absent: Rhonchi, Wheezes - Cardiovascular Exam Cardiovascular Exam: REGULAR RHYTHM, +S1, +S2. absent: Tachycardia, Murmur - GI/Abdominal Exam GI & Abdominal Exam: Soft, Normal Bowel Sounds. absent: Distended, Tenderness - Extremities Exam Extremities Exam: Normal Inspection. absent: Calf Tenderness, Pedal Edema - Psychiatric Exam Psychiatric exam: Flat Affect - Skin Skin Exam: Dry, Intact, Normal Color, Warm Assessment and Plan - Assessment and Plan (Free Text) Assessment: 32 yo male admitted with Left UE/LE weakness/parasthesias, rhabdomyolysis Parasthesias/weakness -improving -PT eval/treat -MRI lumbar-no acute pathology, spinal stenosis l5-s1 -MRI thoracic-small paracentral disc protrusion right t5-t6 and left c6-7 -Neuro consult, Dr. Fatoumata Morley PNA -Augmentin 500mg qd ATN, likely 2/2 rhabdo -IVF d/c -pt producing better urine o/p -BUN/Cr 53/4.6 -Nephro consult, Dr. Alvarez DVT -Right antecubital thrombus in cephalic -Left subclavian thrombus -Eliquis 2.5mg BID Transaminitis -likely 2/2 rhabdo -improving Depression/Substance Abuse after conversation regarding future after hospital d/c, pt displayed no intention of changing drug use habits, claiming he has already had 4 overdoses, and doesn't care what happens to him. -psych consult Dr. Longo Ppx -protonix 40mg po qd -SCD <Sneha Berman V - Last Filed: 01/20/18 23:30> Objective - Vital Signs/Intake and Output Vital Signs (last 24 hours): Temp Pulse Resp BP Pulse Ox 98.4 F 67 20 122/71 99 01/20/18 15:45 01/20/18 15:45 01/20/18 15:45 01/20/18 15:45 01/20/18 15:45 Intake and Output: 01/20/18 01/21/18 18:59 06:59 Intake Total 1000 Output Total 600 Balance 400 - Medications Medications: Current Medications Amoxicillin/Clavulanate Potassium (Augmentin 500 Mg-125 Mg Tab) 1 tab PO Q24H [facility]; Protocol Stop: 01/21/18 15:16 Last Admin: 01/20/18 14:38 Dose: 1 tab Apixaban (Eliquis) 2.5 mg PO BID [facility] Last Admin: 01/20/18 17:58 Dose: 2.5 mg Ascorbic Acid (Vitamin C 500 Mg Tab) 500 mg PO DAILY [facility] Last Admin: 01/20/18 09:10 Dose: 500 mg Sodium Chloride (Sodium Chloride 0.45%) 1,000 mls @ 75 mls/hr IV .[id number] [facility] Last Admin: 01/20/18 22:25 Dose: Not Given Nystatin (Nystatin Oral Susp) 5 ml PO QID [facility] Last Admin: 01/20/18 21:54 Dose: 5 ml Pantoprazole Sodium (Protonix Ec Tab) 40 mg PO DAILY [facility] Last Admin: 01/20/18 09:10 Dose: 40 mg Trazodone HCl (Desyrel) 50 mg PO HS [facility] Last Admin: 01/20/18 21:54 Dose: 50 mg - Labs Labs: 01/20/18 06:59 01/20/18 06:59 PT 15.3 SECONDS (9.7-12.2) H 01/12/18 17:17 INR 1.4 01/12/18 17:17 APTT 46 SECONDS (21-34) H D 01/15/18 06:21 Attending/Attestation - Attestation I have personally seen and examined this patient.: Yes I have fully participated in the care of the patient.: Yes I have reviewed all pertinent clinical information, including history, physical exam and plan: Yes Notes (Text): This is a late computer entry for 01/18/2018 Patient seen, examined, case discussed with medical translator. Patient is undecided about his commitment to stopping drugs given that is reason why prompted of overdose which required emergent dialysis given the lengthy time he was down causing rhabdomyolysis. Have asked psych to evaluate patient given his extreme apathy to the situation. To follow-up with nephrology in regards to if patient will still cry her dialysis which would mean he would need outpatient dialysis placement or if patient's kidneys are adequately recovering to plan for discharge planning. Patient CK-MB improving since hospitalization. Assessment/Plan 1) Rhabdomyolosis; ATN Assessment/Plan * elevated on admission * started on dialysis on this admission * ordered for repeat cpk for today and tomorrow * no role of IV fluids per nephrology 2) Acute Kidney Failure Assessment/Plan * Nephrology (Dr. Alvarez) on consult help appreciated * Dialysis is on Thursday, Thursday, and Thursday * Right IJV catheter placement 01/13/18 * no role of IV fluids per nephrology 3) Hyperkalemia Assessment/Plan * normalized 4) Left Cephalic vein thrombosis Assessment/Plan Likely attributed to IVDA * patient is on Eliquis 2.5mg PO BID * venous doppler (01/13/18): acute thrombosis of the right antecubital cephalic vein with severe reduction of venous return * subacute/chronic partially recannulized left subclavian DVT (01/11/18) 5) IVDA use specifically heroin and cocaine Assessment/Plan * UDS: positive opiate and cocaine 6) Left rm and left leg weakness Assessment/Plan * neurology (Dr. goodwin/fatoumata) on case * Brain MRI: no acute or subacute brain infarction, mass effect, or hydrocephalus, no suspicious extra-axial collection of definite intracranial hemorrhage. Minimal congential or possible postraumatic occipital lobe posteriorly * Cervical MRI: no disc herniation or severe stenosis appreciated throughout the examination. limited disc bulging C5-C6 * Lumbar MRI: no disc herniation or neural foraminal stenosis throughout the lumbar spine. Normal curvature without fracture or spondlyilisthesis. no suspicious matter edema. * Thoracic MRI: small paracentral disc protrusion idenfied at the right at T5-T6 and at left C6-C&, encroaching or possible impinging local ventral ventral roots without significant stenosis resulting. Normal thoracic cord in caliber 7) Transaminitis Assessment/Plan * Downtrending * hepatitis panel negative * HIV nonreactive 8) Pneumonia Assessment/Plan * Repeat chest x-ray patchy atelectasis and/or infiltrate right lung base with right-sided effusion improved from prior exam minor left basal atelectasis with tiny left effusion * Ordered for Chest PA and Lateral * Augmentin 1 tab PO 24H (active since 01/14/18)to complete for 7 days. * Vitamin C 500mg PO daily 9) Prophylactic measure * Eliquis 2.5mg PO BID * Protonix 40mg PO daily * SCDS b/l disposition: We'll need to follow-up with nephrology to determine if patient will need outpatient dialysis placement or patient will not need any further dialysis sessions. Rule out seek opinion of psychiatry given patient's extreme apathy in spite of recent drug overdoses and unequivocal commitment to stopping drug use
[2018-01-18] MEDS: Pantoprazole 40 mg EC Tab PO SCH (10:03)
[2018-01-18] MEDS: Nystatin 100,000 Units/ml Oral Susp 5 ml UD PO SCH ×4 (10:04→21:27)
--- NOTE | 2018-01-18 13:29 | PCM.PSYCH ---
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 Patient is here because of acute renal failure 2/2 rhabdomyolysis, and hypokalemia. Patient states that he passed out after shooting cocaine and heroin on 01/11/18 in his truck. His father found him and brought him to the hospital. He states that by the time he was awake, his left leg was swollen and he could not move his left leg and arm. Psych is consulted for his polysubstance use and to r/o depression. Patient states that he uses 2 bags of cocaine IV for 14 years and 2 bags of heroin IV for 5 years. He reports that he was hospitalized 4x in the past due to overdosing heroin and cocaine. His last hospitalization due to heroin overdose was in May 2014. He occasionally smokes marijuana, but smokes cigarettes 1 ppd. Patient does not complain about any withdrawal symptoms except anxiety and insomnia. He denies nausea, vomiting, diarrhea, tremors, hot flashes or chills. Patient denies any major changes in his mood recently. He denies feeling weak, tired, guilty or too depressed. He denies any suicidal or homicidal ideations. Patient reports that he tried rehab for his heroin addiction 1x in 2014. He denies having any detox before. Patient states that he does not consider attending any detox/rehab programs. RI used, risks discussed Psych hx: denies. Medical hx: Acute kidney failure, rhabdomyolysis Family hx: grandfather had alcohol problems. Current Medications: Active Medications Generic Name Dose Route Start Last Admin Trade Name Freq PRN Reason Stop Dose Admin Amoxicillin/Clavulanate Potassium 1 tab 01/14/18 15:15 01/17/18 15:31 Augmentin 500 Mg-125 Mg Tab PO 1 tab Q24H [facility] Administration Protocol Apixaban 2.5 mg 01/15/18 18:00 01/18/18 10:04 Eliquis PO 2.5 mg BID [facility] Administration Ascorbic Acid 500 mg 01/15/18 10:00 01/18/18 10:04 Vitamin C 500 Mg Tab PO 500 mg DAILY [facility] Administration Nystatin 5 ml 01/14/18 22:00 01/18/18 10:04 Nystatin Oral Susp PO 5 ml QID [facility] Administration Pantoprazole Sodium 40 mg 01/12/18 10:00 01/18/18 10:03 Protonix Ec Tab PO 40 mg DAILY [facility] Administration Past Psychiatric History - Past Psychiatric History Previous Treatment History: None Pertinent Medical Hx (Current Medical&Sleep Prob, Allergies): Allergies Allergy/AdvReac Type Severity Reaction Status Date / Time No Known Allergies Allergy Verified 01/11/18 19:07 No Known Home Med 02/14/14 Review of Systems - Neurological Neurological: UNREMARKABLE - Psychiatric Psychiatric: Abnormal Sleep Pattern, Anxiety, Difficulty Concentrating. absent: Hallucinations, Homicidal Ideation, Suicidal Ideation Mental Status Examination - Personal Presentation Personal Presentation: Looks stated age - Affect Affect: Broad - Motor Activity Motor Activity: Calm - Reliability in Providing Information Reliability in Providing Information: Good - Speech Speech: Organized - Mood Mood: Anxious - Formal Thought Process Formal Thought Process: No Impairment - Cognitive Functions Orientation: Person, Place, Situation, Time Sensorium: Alert Attention/Concentration: Attentive Estimate of Intelligence: Average Judgement: Intact, as evidence by: Insight regarding need for hospitalization Memory: Recent intact, as evidence by: Ability to recall events of the day, Remote intact, as evidenced by: Abilit to recall sig. life events - Risk Risk: Diminished functioning - Strength & Assets Inventory Strength & Assets Inventory: Cooperative - Limitations Limitations: Other DSM 5 DX - DSM 5 DSM 5 Diagnosis: Opioid use d/o - severe Cocaine use d/o Anxiety d/o - unspecified - Recommended/Plan of Treatment Treatment Recommendations and Plan of Treatment: Pt does not want antidepressants Trazadone for insomnia. As needed medications All risks, benefits and alternatives of the meds discussed, and the pt agreed and understood. Supportive therapy and psychoeducation Encourage MAT and rehab Teach healthy lifestyle methods, i.e. diet, exercise, meditation Smoking cessation with RI Nicotine patch if needed 34 min - Smoking Cessation Smoking Cessation Initiated: Yes
[2018-01-18] MEDS: Amoxicillin-Clav 500-125 mg Tab PO SCH (14:16)
--- NOTE | 2018-01-18 21:31 | CP.PCM.PN ---
Subjective - Date & Time of Evaluation Date of Evaluation: 01/18/18 Time of Evaluation: 12:00 - Subjective Subjective: Reports tolerating diet; urinating more; no sob; Objective - Vital Signs/Intake and Output Vital Signs (last 24 hours): Temp Pulse Resp BP Pulse Ox 97.6 F 78 20 148/78 98 01/18/18 16:00 01/18/18 16:00 01/18/18 16:00 01/18/18 16:00 01/18/18 16:00 Intake and Output: 01/18/18 01/19/18 18:59 06:59 Intake Total 700 Output Total 400 Balance 300 - Medications Medications: Current Medications Amoxicillin/Clavulanate Potassium (Augmentin 500 Mg-125 Mg Tab) 1 tab PO Q24H [facility]; Protocol Last Admin: 01/18/18 14:16 Dose: 1 tab Apixaban (Eliquis) 2.5 mg PO BID [facility] Last Admin: 01/18/18 17:38 Dose: 2.5 mg Ascorbic Acid (Vitamin C 500 Mg Tab) 500 mg PO DAILY [facility] Last Admin: 01/18/18 10:04 Dose: 500 mg Nystatin (Nystatin Oral Susp) 5 ml PO QID [facility] Last Admin: 01/18/18 21:27 Dose: 5 ml Pantoprazole Sodium (Protonix Ec Tab) 40 mg PO DAILY [facility] Last Admin: 01/18/18 10:03 Dose: 40 mg Trazodone HCl (Desyrel) 50 mg PO HS [facility] Last Admin: 01/18/18 21:27 Dose: 50 mg - Labs Labs: 01/18/18 06:25 01/18/18 06:25 PT 15.3 SECONDS (9.7-12.2) H 01/12/18 17:17 INR 1.4 01/12/18 17:17 APTT 46 SECONDS (21-34) H D 01/15/18 06:21 - Constitutional Appears: Non-toxic, No Acute Distress - Eye Exam Eye Exam: Normal appearance - ENT Exam ENT Exam: Mucous Membranes Moist - Respiratory Exam Respiratory Exam: Clear to Ausculation Bilateral. absent: Respiratory Distress - Cardiovascular Exam Cardiovascular Exam: RRR, +S1, +S2 - GI/Abdominal Exam GI & Abdominal Exam: Soft. absent: Distended, Tenderness - Extremities Exam Additional comments: no leg edema; - Neurological Exam Neurological Exam: Alert, Awake - Psychiatric Exam Psychiatric exam: Normal Mood. absent: Agitated - Skin Skin Exam: Warm. absent: Cyanosis Assessment and Plan (1) Acute renal failure Assessment & Plan: ATN in the setting of severe rhabo; now appears to be in renal recovery; stable volume and electrolyte status; urine output unclear; patient/nursing staff instructed regarding strict I/O; -holding HD today; -avoid neprhotoxic agents; Status: Acute (2) Rhabdomyolysis Assessment & Plan: CK level decreasing; Status: Acute (3) Electrolyte abnormality Status: Acute (4) DVT (deep venous thrombosis) Status: Acute
[2018-01-19 08:02] LABS: BASO % 0.4 % (0.0-2.0); EOS # 0.4 K/uL (0.0-0.7); EOS % 3.9 % (0.0-4.0); HEMOGLOBIN 11.5 g/dL (12.0-18.0); LYMPH # 1.8 K/uL (1.0-4.3); LYMPH % 17.7 % (20.0-40.0); MEAN CELL VOLUME 83.3 fL (80.0-94.0); MEAN CORPUSCULAR HEMOGLOBIN 28.7 pg (27.0-31.0); MEAN CORPUSCULAR HGB CONC 34.4 g/dL (33.0-37.0); MEAN PLATELET VOLUME 8.7 fL (7.2-11.7); MONO % 9.9 % (0.0-10.0); NEUT % 68.1 % (50.0-75.0); RBC 4.01 Mil/uL (4.40-5.90); RED CELL DISTRIBUTION WIDTH 15.6 % (11.5-14.5); WHITE BLOOD COUNT 10.4 K/uL (4.8-10.8)
[2018-01-19 08:15] LABS: ALB/GLOB RATIO 1.2 (1.0-2.1); ALBUMIN 2.9 g/dL (3.5-5.0); CALCIUM 8.8 mg/dl (8.6-10.4)
--- NOTE | 2018-01-19 09:21 | CP.PCM.PN ---
<India Manriquez P - Last Filed: 01/19/18 19:22> Subjective - Date & Time of Evaluation Date of Evaluation: 01/19/18 Time of Evaluation: 08:00 - Subjective Subjective: PGY-[address] Berman. Patient seen and examined at bedside in no acute distress. Patient states the feels "the same." Complains of tingling and twitching of left arm. Also complains of irritation to the R IJ catheter site, especially when laying on his R side. Patient denies warmth or redness to the site, fevers, and chills. He reports improved sleep since starting trazodone. Objective - Vital Signs/Intake and Output Vital Signs (last 24 hours): Temp Pulse Resp BP Pulse Ox 98.1 F 63 20 126/76 96 01/19/18 07:55 01/19/18 07:55 01/19/18 07:55 01/19/18 07:55 01/19/18 07:55 Intake and Output: 01/19/18 01/19/18 06:59 18:59 Intake Total 1680 Output Total 1050 Balance 630 - Medications Medications: Current Medications Amoxicillin/Clavulanate Potassium (Augmentin 500 Mg-125 Mg Tab) 1 tab PO Q24H [facility]; Protocol Last Admin: 01/18/18 14:16 Dose: 1 tab Apixaban (Eliquis) 2.5 mg PO BID [facility] Last Admin: 01/18/18 17:38 Dose: 2.5 mg Ascorbic Acid (Vitamin C 500 Mg Tab) 500 mg PO DAILY [facility] Last Admin: 01/18/18 10:04 Dose: 500 mg Nystatin (Nystatin Oral Susp) 5 ml PO QID [facility] Last Admin: 01/18/18 21:27 Dose: 5 ml Pantoprazole Sodium (Protonix Ec Tab) 40 mg PO DAILY [facility] Last Admin: 01/18/18 10:03 Dose: 40 mg Trazodone HCl (Desyrel) 50 mg PO HS [facility] Last Admin: 01/18/18 21:27 Dose: 50 mg - Labs Labs: 01/19/18 07:45 01/19/18 07:45 PT 15.3 SECONDS (9.7-12.2) H 01/12/18 17:17 INR 1.4 01/12/18 17:17 APTT 46 SECONDS (21-34) H D 01/15/18 06:21 - Constitutional Appears: Non-toxic, No Acute Distress - Head Exam Head Exam: ATRAUMATIC, NORMOCEPHALIC - Eye Exam Eye Exam: EOMI, Normal appearance - ENT Exam ENT Exam: Mucous Membranes Moist - Neck Exam Neck Exam: Full ROM - Respiratory Exam Respiratory Exam: Clear to Ausculation Bilateral, NORMAL BREATHING PATTERN. absent: Rales, Rhonchi, Wheezes - Cardiovascular Exam Cardiovascular Exam: REGULAR RHYTHM, +S1, +S2 Additional comments: permacath in right chest without erythema, warmth or swelling. - GI/Abdominal Exam GI & Abdominal Exam: Soft, Normal Bowel Sounds. absent: Guarding, Tenderness, Rebound - Extremities Exam Extremities Exam: Full ROM. absent: Pedal Edema, Tenderness - Neurological Exam Neurological Exam: Alert, Awake, CN II-XII Intact, Oriented x3 Neuro motor strength exam: Left Upper Extremity: 5, Right Upper Extremity: 5, Left Lower Extremity: 5, Right Lower Extremity: 5 - Psychiatric Exam Psychiatric exam: Normal Affect - Skin Skin Exam: Dry, Normal Color, Warm Assessment and Plan - Assessment and Plan (Free Text) Plan: 32 yo male admitted with Left UE/LE weakness/parasthesias, rhabdomyolysis Parasthesias/weakness -improving -PT eval/treat -MRI lumbar-no acute pathology, spinal stenosis l5-s1 -MRI thoracic-small paracentral disc protrusion right t5-t6 and left c6-7 -Neuro consult, Dr. Fatoumata Morley PNA -Augmentin 500mg qd Acute renal failure, secondary to rhabdo- improving -IVF d/c -pt producing urine -BUN/Cr 48/3.2 -Nephro consult, Dr. Alvarez Likely will no longer require dialysis. Keep dialysis access in place until 01/21/18. DVT -Right antecubital thrombus in cephalic -Left subclavian thrombus -Eliquis 2.5mg BID Transaminitis -likely 2/2 rhabdo -improving Depression/Substance Abuse after conversation regarding future after hospital d/c, pt displayed no intention of changing drug use habits, claiming he has already had 4 overdoses, and doesn't care what happens to him. -psych consult Dr. Longo Trazodone for insomnia Pt declines antidepressants Ppx -protonix 40mg po qd -SCD <Sneha Berman V - Last Filed: 01/20/18 23:37> Objective - Vital Signs/Intake and Output Vital Signs (last 24 hours): Temp Pulse Resp BP Pulse Ox 98.4 F 67 20 122/71 99 01/20/18 15:45 01/20/18 15:45 01/20/18 15:45 01/20/18 15:45 01/20/18 15:45 Intake and Output: 01/20/18 01/21/18 18:59 06:59 Intake Total 1000 Output Total 600 Balance 400 - Medications Medications: Current Medications Amoxicillin/Clavulanate Potassium (Augmentin 500 Mg-125 Mg Tab) 1 tab PO Q24H [facility]; Protocol Stop: 01/21/18 15:16 Last Admin: 01/20/18 14:38 Dose: 1 tab Apixaban (Eliquis) 2.5 mg PO BID [facility] Last Admin: 01/20/18 17:58 Dose: 2.5 mg Ascorbic Acid (Vitamin C 500 Mg Tab) 500 mg PO DAILY [facility] Last Admin: 01/20/18 09:10 Dose: 500 mg Sodium Chloride (Sodium Chloride 0.45%) 1,000 mls @ 75 mls/hr IV .[id number] [facility] Last Admin: 01/20/18 22:25 Dose: Not Given Nystatin (Nystatin Oral Susp) 5 ml PO QID [facility] Last Admin: 01/20/18 21:54 Dose: 5 ml Pantoprazole Sodium (Protonix Ec Tab) 40 mg PO DAILY [facility] Last Admin: 01/20/18 09:10 Dose: 40 mg Trazodone HCl (Desyrel) 50 mg PO HS [facility] Last Admin: 01/20/18 21:54 Dose: 50 mg - Labs Labs: 01/20/18 06:59 01/20/18 06:59 PT 15.3 SECONDS (9.7-12.2) H 01/12/18 17:17 INR 1.4 01/12/18 17:17 APTT 46 SECONDS (21-34) H D 01/15/18 06:21 Attending/Attestation - Attestation I have personally seen and examined this patient.: Yes I have fully participated in the care of the patient.: Yes I have reviewed all pertinent clinical information, including history, physical exam and plan: Yes Notes (Text): This is a late computer entry for 01/19/2018. Patient seen, examined case discussed with certified court/medical interpreter. Patient is still unequivocal about drug use and commitment to stop using drugs unclear what will motivate patient to stop. Did discuss with pastoral care as well. Patient's sleep improved with trazodone and did discuss it with the residents to not give Benadryl on light of decreased cognitive ability as well as move another addictive replacement. It appears the patient may not need dialysis further will follow-up with nephrology Assessment/Plan 1) Rhabdomyolosis; ATN Assessment/Plan * elevated on admission * started on dialysis on this admission * Improved * no role of IV fluids per nephrology 2) Acute Kidney Failure Assessment/Plan * Nephrology (Dr. 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 goodwin/fatoumata) on case * Brain MRI: no acute or subacute brain infarction, mass effect, or hydrocephalus, no suspicious extra-axial collection of definite intracranial hemorrhage. Minimal congential or possible postraumatic occipital lobe posteriorly * Cervical MRI: no disc herniation or severe stenosis appreciated throughout the examination. limited disc bulging C5-C6 * Lumbar MRI: no disc herniation or neural foraminal stenosis throughout the lumbar spine. Normal curvature without fracture or spondlyilisthesis. no suspicious matter edema. * Thoracic MRI: small paracentral disc protrusion idenfied at the right at T5-T6 and at left C6-C&, encroaching or possible impinging local ventral ventral roots without significant stenosis resulting. Normal thoracic cord in caliber 7) Transaminitis Assessment/Plan * Downtrending * hepatitis panel negative * HIV nonreactive 8) Pneumonia Assessment/Plan * Repeat chest x-ray patchy atelectasis and/or infiltrate right lung base with right-sided effusion improved from prior exam minor left basal atelectasis with tiny left effusion * Augmentin 1 tab PO 24H (active since 01/14/18)to complete for 7 days. * Vitamin C 500mg PO daily 9) Prophylactic measure * Eliquis 2.5mg PO BID * Protonix 40mg PO daily * SCDS b/l disposition: We'll need to follow-up with nephrology to determine if patient will need outpatient dialysis placement or patient will not need any further dialysis sessions.
[2018-01-19] MEDS: Pantoprazole 40 mg EC Tab PO SCH (10:13)
[2018-01-19] MEDS: Nystatin 100,000 Units/ml Oral Susp 5 ml UD PO SCH ×4 (10:13→22:39)
[2018-01-19] MEDS ORDERED: Sodium Chloride 0.45% 1,000 ML IV ONE (14:05)
[2018-01-19] MEDS: Amoxicillin-Clav 500-125 mg Tab PO SCH (14:23)
--- NOTE | 2018-01-19 15:25 | CP.PCM.PN ---
<Cici Heredia - Last Filed: 01/19/18 15:21> Subjective - Date & Time of Evaluation Date of Evaluation: 01/19/18 Time of Evaluation: 08:00 - Subjective Subjective: Nephrology Progress Note for Dr. Alvarez Patient was seen and examined at bedside in the AM. Patient states he is urinating frequently without difficulty. He states he cannot wait to have the permacath removed. Patient denies chest pain, shortness of breath, dysuria, hematuria, fever, chill, nausea, vomiting, diarrhea or constipation. Objective - Vital Signs/Intake and Output Vital Signs (last 24 hours): Temp Pulse Resp BP Pulse Ox 98.1 F 63 20 126/76 96 01/19/18 07:55 01/19/18 07:55 01/19/18 07:55 01/19/18 07:55 01/19/18 07:55 Intake and Output: 01/19/18 01/19/18 06:59 18:59 Intake Total 1680 Output Total 1050 Balance 630 - Medications Medications: Current Medications Amoxicillin/Clavulanate Potassium (Augmentin 500 Mg-125 Mg Tab) 1 tab PO Q24H [facility]; Protocol Last Admin: 01/19/18 14:23 Dose: 1 tab Apixaban (Eliquis) 2.5 mg PO BID [facility] Last Admin: 01/19/18 10:13 Dose: 2.5 mg Ascorbic Acid (Vitamin C 500 Mg Tab) 500 mg PO DAILY [facility] Last Admin: 01/19/18 10:13 Dose: 500 mg Sodium Chloride (Sodium Chloride 0.45%) 1,000 mls @ 75 mls/hr IV .[id number] ONE Stop: 01/20/18 03:24 Nystatin (Nystatin Oral Susp) 5 ml PO QID [facility] Last Admin: 01/19/18 14:23 Dose: 5 ml Pantoprazole Sodium (Protonix Ec Tab) 40 mg PO DAILY [facility] Last Admin: 01/19/18 10:13 Dose: 40 mg Trazodone HCl (Desyrel) 50 mg PO HS [facility] Last Admin: 01/18/18 21:27 Dose: 50 mg - Labs Labs: 01/19/18 07:45 01/19/18 07:45 PT 15.3 SECONDS (9.7-12.2) H 01/12/18 17:17 INR 1.4 01/12/18 17:17 APTT 46 SECONDS (21-34) H D 01/15/18 06:21 - Constitutional Appears: No Acute Distress - Head Exam Head Exam: ATRAUMATIC, NORMAL INSPECTION - Eye Exam Eye Exam: EOMI, Normal appearance - ENT Exam ENT Exam: Mucous Membranes Moist - Respiratory Exam Respiratory Exam: Clear to Ausculation Bilateral, NORMAL BREATHING PATTERN - Cardiovascular Exam Cardiovascular Exam: REGULAR RHYTHM, +S1, +S2 Additional comments: Right IJV catheter - GI/Abdominal Exam GI & Abdominal Exam: Soft, Normal Bowel Sounds. absent: Tenderness - Extremities Exam Extremities Exam: absent: Pedal Edema - Neurological Exam Neurological Exam: Alert, Awake, Oriented x3 - Psychiatric Exam Psychiatric exam: Normal Mood Assessment and Plan - Assessment and Plan (Free Text) Assessment: 32 year old male with no significant past medical history who was transferred from [facility] to [facility] ([facility] for emergent dialysis. Initially patient presented to the ER in [place] for inability to move his left arm and left leg. Patient states that he was injecting cocaine and heroine in his right arm the night prior to admission. He reports that he fell asleep in his truck. Patient woke up with new onset left arm and left leg weakness. While at [place], patient was found to be in acute renal failure, rhabdomyolysis and hyperkalemia. Acute Renal Failure - secondary to severe rhabdomyolysis - Patient currently appears to be in renal recovery - Stable volume and electrolyte status - Continues to have urinary output - Started patient on 1/2NS @75cc/hr to prevent polyuria - No HD needed at this time, Continue to monitor Cr - Keep IJ in place - possible removal pending labs Rhabdomyolysis - CK on admission 98497 --> 2241 - Continue to monitor Electrolyte Imbalance - Continue to Monitor Case discussed with Dr. Kim Heredia PGY-2 <Ortega Alvarez - Last Filed: 01/20/18 06:14> Objective - Vital Signs/Intake and Output Vital Signs (last 24 hours): Temp Pulse Resp BP Pulse Ox 98.2 F 61 20 124/73 98 01/20/18 00:00 01/20/18 00:00 01/20/18 00:00 01/20/18 00:00 01/20/18 00:00 Intake and Output: 01/19/18 01/20/18 18:59 06:59 Intake Total 2200 Balance 2200 - Medications Medications: Current Medications Amoxicillin/Clavulanate Potassium (Augmentin 500 Mg-125 Mg Tab) 1 tab PO Q24H [facility]; Protocol Last Admin: 01/19/18 14:23 Dose: 1 tab Apixaban (Eliquis) 2.5 mg PO BID [facility] Last Admin: 01/19/18 17:31 Dose: 2.5 mg Ascorbic Acid (Vitamin C 500 Mg Tab) 500 mg PO DAILY [facility] Last Admin: 01/19/18 10:13 Dose: 500 mg Sodium Chloride (Sodium Chloride 0.45%) 1,000 mls @ 75 mls/hr IV .[id number] [facility] Nystatin (Nystatin Oral Susp) 5 ml PO QID [facility] Last Admin: 01/19/18 22:39 Dose: 5 ml Pantoprazole Sodium (Protonix Ec Tab) 40 mg PO DAILY [facility] Last Admin: 01/19/18 10:13 Dose: 40 mg Trazodone HCl (Desyrel) 50 mg PO HS [facility] Last Admin: 01/19/18 22:39 Dose: 50 mg - Labs Labs: 01/19/18 07:45 01/19/18 07:45 PT 15.3 SECONDS (9.7-12.2) H 01/12/18 17:17 INR 1.4 01/12/18 17:17 APTT 46 SECONDS (21-34) H D 01/15/18 06:21 Assessment and Plan (1) Acute renal failure Status: Acute (2) Rhabdomyolysis Status: Acute (3) Electrolyte abnormality Status: Acute (4) DVT (deep venous thrombosis) Status: Acute Attending/Attestation - Attestation I have personally seen and examined this patient.: Yes I have fully participated in the care of the patient.: Yes I have reviewed all pertinent clinical information, including history, physical exam and plan: Yes Notes (Text): Patient seen and examined; I agree with the resident's note as above with the following additions/edits: Patient with history of IVDA, cocaine use, admitted with severe rhabodmyolysis and SUSHMA requiring HD; ATN, now recovering with serum creatinine decreasing over past 2 days; UO increased though not polyuric (at least according to what is being documented); stable volume and electrolyte status; holding HD indefinitely, likely will be able to remove HD cath at end of week; -starting IVF to avoid volume depletion, 1/2NS at 75 cc/hr; -avoid nephrotoxic agents (NSAIDS, IV dye, etc);
[2018-01-20] MEDS: Sodium Chloride 0.45% 1,000 ML IV SCH ×3 (06:27→22:25)
[2018-01-20 07:21] LABS: BASO # 0.1 K/uL (0.0-0.2); BASO % 0.8 % (0.0-2.0); EOS # 0.4 K/uL (0.0-0.7); EOS % 4.8 % (0.0-4.0); HEMOGLOBIN 11.9 g/dL (12.0-18.0); LYMPH # 2.3 K/uL (1.0-4.3); LYMPH % 24.5 % (20.0-40.0); MEAN CORPUSCULAR HEMOGLOBIN 29.1 pg (27.0-31.0); MEAN CORPUSCULAR HGB CONC 34.7 g/dL (33.0-37.0); MEAN PLATELET VOLUME 8.9 fL (7.2-11.7); MONO % 10.7 % (0.0-10.0); NEUT # 5.5 K/uL (1.8-7.0); NEUT % 59.2 % (50.0-75.0); RBC 4.09 Mil/uL (4.40-5.90); RED CELL DISTRIBUTION WIDTH 15.5 % (11.5-14.5); WHITE BLOOD COUNT 9.2 K/uL (4.8-10.8)
[2018-01-20 07:33] LABS: ALB/GLOB RATIO 1.3 (1.0-2.1); ALBUMIN 3.2 g/dL (3.5-5.0); CALCIUM 8.8 mg/dl (8.6-10.4)
[2018-01-20] MEDS ORDERED: Sod Polystyrene Sulf 15 gm/60 ml Susp PO ONE ×2 (08:45→09:09)
[2018-01-20] MEDS: Nystatin 100,000 Units/ml Oral Susp 5 ml UD PO SCH ×4 (09:10→21:54)
[2018-01-20] MEDS: Pantoprazole 40 mg EC Tab PO SCH (09:10)
[2018-01-20] MEDS: Magnesium Sulfate 1 gm in D5W 1 GM/100 ML BAG IVPB SCH ×2 (09:15→09:45)
--- NOTE | 2018-01-20 10:34 | CP.PCM.PN ---
<Cici Heredia - Last Filed: 01/20/18 15:19> Subjective - Date & Time of Evaluation Date of Evaluation: 01/20/18 Time of Evaluation: 09:00 - Subjective Subjective: Nephrology Progress Note for Dr. Alvarez Patient was seen and examined at bedside in the AM. Patient states he continues to urinate without difficulty. Patient denies chest pain, shortness of breath, dysuria, hematuria, fever, chill, nausea, vomiting, diarrhea or constipation. Objective - Vital Signs/Intake and Output Vital Signs (last 24 hours): Temp Pulse Resp BP Pulse Ox 98.1 F 62 20 129/81 99 01/20/18 07:42 01/20/18 07:42 01/20/18 07:42 01/20/18 07:42 01/20/18 07:42 Intake and Output: 01/20/18 01/20/18 06:59 18:59 Intake Total 2800 Balance 2800 - Medications Medications: Current Medications Amoxicillin/Clavulanate Potassium (Augmentin 500 Mg-125 Mg Tab) 1 tab PO Q24H [facility]; Protocol Last Admin: 01/19/18 14:23 Dose: 1 tab Apixaban (Eliquis) 2.5 mg PO BID [facility] Last Admin: 01/20/18 08:59 Dose: 2.5 mg Ascorbic Acid (Vitamin C 500 Mg Tab) 500 mg PO DAILY [facility] Last Admin: 01/20/18 09:10 Dose: 500 mg Sodium Chloride (Sodium Chloride 0.45%) 1,000 mls @ 75 mls/hr IV .[id number] [facility] Last Admin: 01/20/18 06:27 Dose: Not Given Nystatin (Nystatin Oral Susp) 5 ml PO QID [facility] Last Admin: 01/20/18 09:10 Dose: 5 ml Pantoprazole Sodium (Protonix Ec Tab) 40 mg PO DAILY [facility] Last Admin: 01/20/18 09:10 Dose: 40 mg Trazodone HCl (Desyrel) 50 mg PO HS [facility] Last Admin: 01/19/18 22:39 Dose: 50 mg - Labs Labs: 01/20/18 06:59 01/20/18 06:59 PT 15.3 SECONDS (9.7-12.2) H 01/12/18 17:17 INR 1.4 01/12/18 17:17 APTT 46 SECONDS (21-34) H D 01/15/18 06:21 - Constitutional Appears: No Acute Distress - Head Exam Head Exam: ATRAUMATIC, NORMAL INSPECTION - Eye Exam Eye Exam: EOMI, Normal appearance - ENT Exam ENT Exam: Mucous Membranes Moist - Respiratory Exam Respiratory Exam: Clear to Ausculation Bilateral, NORMAL BREATHING PATTERN - Cardiovascular Exam Cardiovascular Exam: REGULAR RHYTHM, +S1, +S2 Additional comments: Right IJV catheter - Neurological Exam Neurological Exam: Alert, Awake, Oriented x3 - Psychiatric Exam Psychiatric exam: Normal Affect Assessment and Plan - Assessment and Plan (Free Text) Assessment: 32 year old male with no significant past medical history who was transferred from [facility] to [facility] for emergent dialysis. Initially patient presented to the ER in [place] for inability to move his left arm and left leg. Patient states that he was injecting cocaine and heroine in his right arm the night prior to admission. He reports that he fell asleep in his truck. Patient woke up with new onset left arm and left leg weakness. While at [place], patient was found to be in acute renal failure, rhabdomyolysis and hyperkalemia. Acute Renal Failure - secondary to severe rhabdomyolysis - Patient currently appears to be in renal recovery - Stable volume and electrolyte status - Continues to have urinary output - Continue 1/2NS @75cc/hr to prevent polyuria - No HD needed at this time, Continue to monitor Cr - Remove Catheter by IR Rhabdomyolysis - CK on admission 14351 --> 2241 - Continue to monitor Electrolyte Imbalance - Mg repleated - K 5.1; Kayexalate given once 01/20/18 - Continue to Monitor Case discussed with Dr. Kim Heredia PGY-2 <Ortega Alvarez - Last Filed: 01/21/18 08:51> Objective - Vital Signs/Intake and Output Vital Signs (last 24 hours): Temp Pulse Resp BP Pulse Ox 98.1 F 65 21 143/81 98 01/21/18 08:09 01/21/18 08:09 01/21/18 08:09 01/21/18 08:09 01/21/18 08:09 - Medications Medications: Current Medications Amoxicillin/Clavulanate Potassium (Augmentin 500 Mg-125 Mg Tab) 1 tab PO Q24H [facility]; Protocol Stop: 01/21/18 15:16 Last Admin: 01/20/18 14:38 Dose: 1 tab Apixaban (Eliquis) 2.5 mg PO BID [facility] Last Admin: 01/20/18 17:58 Dose: 2.5 mg Ascorbic Acid (Vitamin C 500 Mg Tab) 500 mg PO DAILY [facility] Last Admin: 01/20/18 09:10 Dose: 500 mg Sodium Chloride (Sodium Chloride 0.45%) 1,000 mls @ 75 mls/hr IV .[id number] [facility] Last Admin: 01/21/18 02:58 Dose: 75 mls/hr Nystatin (Nystatin Oral Susp) 5 ml PO QID [facility] Last Admin: 01/20/18 21:54 Dose: 5 ml Pantoprazole Sodium (Protonix Ec Tab) 40 mg PO DAILY [facility] Last Admin: 01/20/18 09:10 Dose: 40 mg Trazodone HCl (Desyrel) 50 mg PO HS [facility] Last Admin: 01/20/18 21:54 Dose: 50 mg - Labs Labs: 01/21/18 07:24 01/21/18 07:24 PT 15.3 SECONDS (9.7-12.2) H 01/12/18 17:17 INR 1.4 01/12/18 17:17 APTT 46 SECONDS (21-34) H D 01/15/18 06:21 Assessment and Plan (1) Acute renal failure Status: Acute (2) Rhabdomyolysis Status: Acute (3) Electrolyte abnormality Status: Acute (4) DVT (deep venous thrombosis) Status: Acute Attending/Attestation - Attestation I have personally seen and examined this patient.: Yes I have fully participated in the care of the patient.: Yes I have reviewed all pertinent clinical information, including history, physical exam and plan: Yes Notes (Text): Patient seen and examined; I agree with the resident's note as above with the following additions/edits: Patient with history of IVDA, cocaine use, admitted with severe rhabodmyolysis and SUSHMA requiring HD; ATN, resolving with serum creatinine continuing to decrease; not polyuric but will continue with IVF w/ 1/2NS at 75 cc/hr; will plan to d/c HD catheter tomorrow; Patient counseled on lifestyle changes; reports being amenable to change;
[2018-01-20] MEDS: Amoxicillin-Clav 500-125 mg Tab PO SCH (14:38)
--- NOTE | 2018-01-20 17:23 | CP.PCM.PN ---
<India Manriquez P - Last Filed: 01/20/18 22:49> Subjective - Date & Time of Evaluation Date of Evaluation: 01/20/18 Time of Evaluation: 08:00 - Subjective Subjective: PGY-[address] Berman. Patient seen and examined at bedside. No acute events overnight. Patient is in good mood today. States he has increased ROM in L arm. Still reports tingling in L leg. Continues to complain of tenderness to R IJ catheter. Patient urinating without difficulty. States he was able to sleep well last night. Denies chest pain, shortness of breath, nasuea, vomiting, abdominal pain, fevers and chills. Objective - Vital Signs/Intake and Output Vital Signs (last 24 hours): Temp Pulse Resp BP Pulse Ox 98.4 F 67 20 122/71 99 01/20/18 15:45 01/20/18 15:45 01/20/18 15:45 01/20/18 15:45 01/20/18 15:45 Intake and Output: 01/20/18 01/20/18 06:59 18:59 Intake Total 2800 1000 Output Total 600 Balance 2800 400 - Medications Medications: Current Medications Amoxicillin/Clavulanate Potassium (Augmentin 500 Mg-125 Mg Tab) 1 tab PO Q24H [facility]; Protocol Last Admin: 01/20/18 14:38 Dose: 1 tab Apixaban (Eliquis) 2.5 mg PO BID [facility] Last Admin: 01/20/18 08:59 Dose: 2.5 mg Ascorbic Acid (Vitamin C 500 Mg Tab) 500 mg PO DAILY [facility] Last Admin: 01/20/18 09:10 Dose: 500 mg Sodium Chloride (Sodium Chloride 0.45%) 1,000 mls @ 75 mls/hr IV .[id number] [facility] Last Admin: 01/20/18 13:34 Dose: 75 mls/hr Nystatin (Nystatin Oral Susp) 5 ml PO QID [facility] Last Admin: 01/20/18 13:36 Dose: 5 ml Pantoprazole Sodium (Protonix Ec Tab) 40 mg PO DAILY [facility] Last Admin: 01/20/18 09:10 Dose: 40 mg Trazodone HCl (Desyrel) 50 mg PO HS [facility] Last Admin: 01/19/18 22:39 Dose: 50 mg - Labs Labs: 01/20/18 06:59 01/20/18 06:59 PT 15.3 SECONDS (9.7-12.2) H 01/12/18 17:17 INR 1.4 01/12/18 17:17 APTT 46 SECONDS (21-34) H D 01/15/18 06:21 - Additional Findings Additional findings: - Constitutional Appears: Non-toxic, No Acute Distress - Head Exam Head Exam: ATRAUMATIC, NORMOCEPHALIC - Eye Exam Eye Exam: EOMI, Normal appearance - ENT Exam ENT Exam: Mucous Membranes Moist - Neck Exam Neck Exam: Full ROM - Respiratory Exam Respiratory Exam: Clear to Ausculation Bilateral, NORMAL BREATHING PATTERN. absent: Rales, Rhonchi, Wheezes - Cardiovascular Exam Cardiovascular Exam: REGULAR RHYTHM, +S1, +S2 Additional comments: R IJV HD catheter tender to palpation, without erythema, warmth or swelling. - GI/Abdominal Exam GI & Abdominal Exam: Soft, Normal Bowel Sounds. absent: Guarding, Tenderness, Rebound - Extremities Exam Extremities Exam: Full ROM. absent: Pedal Edema, Tenderness - Neurological Exam Neurological Exam: Alert, Awake, CN II-XII Intact, Oriented x3 Neuro motor strength exam: Left Upper Extremity: 5, Right Upper Extremity: 5, Left Lower Extremity: 5, Right Lower Extremity: 5 - Psychiatric Exam Psychiatric exam: Normal Affect - Skin Skin Exam: Dry, Normal Color, Warm Assessment and Plan - Assessment and Plan (Free Text) Plan: 32 yo male admitted with Left UE/LE weakness/parasthesias, rhabdomyolysis Acute renal failure, secondary to rhabdo- improving -pt producing urine -BUN/Cr 42/2.0 -Nephro consult, Dr. Alvarez Patient will no longer require dialysis due to improvement of Cr -IR consulted for removal of R IJV HD catheter, plan for 01/22 Parasthesias/weakness -improving -PT eval/treat -MRI lumbar-no acute pathology, spinal stenosis l5-s1 -MRI thoracic-small paracentral disc protrusion right t5-t6 and left c6-7 -Neuro consult, Dr. Sierra Aspiration PNA -Augmentin 500mg qd DVT -Right antecubital thrombus in cephalic -Left subclavian thrombus -Eliquis 2.5mg BID Transaminitis -likely 2/2 rhabdo -improving Depression/Substance Abuse Patient more open to stop using drugs than previously -psych consult Dr. Donta Chambers for insomnia Pt declines antidepressants Ppx -protonix 40mg po qd -SCD <Sneha Berman V - Last Filed: 01/20/18 23:40> Objective - Vital Signs/Intake and Output Vital Signs (last 24 hours): Temp Pulse Resp BP Pulse Ox 98.4 F 67 20 122/71 99 01/20/18 15:45 01/20/18 15:45 01/20/18 15:45 01/20/18 15:45 01/20/18 15:45 Intake and Output: 01/20/18 01/21/18 18:59 06:59 Intake Total 1000 Output Total 600 Balance 400 - Medications Medications: Current Medications Amoxicillin/Clavulanate Potassium (Augmentin 500 Mg-125 Mg Tab) 1 tab PO Q24H [facility]; Protocol Stop: 01/21/18 15:16 Last Admin: 01/20/18 14:38 Dose: 1 tab Apixaban (Eliquis) 2.5 mg PO BID [facility] Last Admin: 01/20/18 17:58 Dose: 2.5 mg Ascorbic Acid (Vitamin C 500 Mg Tab) 500 mg PO DAILY [facility] Last Admin: 01/20/18 09:10 Dose: 500 mg Sodium Chloride (Sodium Chloride 0.45%) 1,000 mls @ 75 mls/hr IV .[id number] [facility] Last Admin: 01/20/18 22:25 Dose: Not Given Nystatin (Nystatin Oral Susp) 5 ml PO QID [facility] Last Admin: 01/20/18 21:54 Dose: 5 ml Pantoprazole Sodium (Protonix Ec Tab) 40 mg PO DAILY [facility] Last Admin: 01/20/18 09:10 Dose: 40 mg Trazodone HCl (Desyrel) 50 mg PO HS [facility] Last Admin: 01/20/18 21:54 Dose: 50 mg - Labs Labs: 01/20/18 06:59 01/20/18 06:59 PT 15.3 SECONDS (9.7-12.2) H 01/12/18 17:17 INR 1.4 01/12/18 17:17 APTT 46 SECONDS (21-34) H D 01/15/18 06:21 Attending/Attestation - Attestation I have personally seen and examined this patient.: Yes I have fully participated in the care of the patient.: Yes I have reviewed all pertinent clinical information, including history, physical exam and plan: Yes Notes (Text): Patient seen, examined, case discussed clinical medical assistant. Patient reports irritation over IJ the catheter placement I did remind him that there is no metal this is likely plastic nail is embedded submitted does not freely moved since it is an access for dialysis. Resident has reached out to nephrology is unlikely that he will need this catheter further however interventional radiology will need to remove since it is tunneled. I've please consult for interventional radiology noted schedule is quite busy for tomorrow hoping for Thursday removal. Patient to completely by mouth antibiotic to cover for pneumonia tomorrow. We'll need to follow-up with nephrology to see if Eliquis remains a good option for the patient in light of his history of hx of thrombus noted or if aspirin would be a better alternative given that there is no reversal agent out yet for Eliquis. Assessment/Plan 1) Rhabdomyolosis; ATN Assessment/Plan * elevated on admission * started on dialysis on this admission * Improved * no role of IV fluids per nephrology 2) Acute Kidney Failure Assessment/Plan * Nephrology (Dr. 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 goodwin/fatoumata) on case * Brain MRI: no acute or subacute brain infarction, mass effect, or hydrocephalus, no suspicious extra-axial collection of definite intracranial hemorrhage. Minimal congential or possible postraumatic occipital lobe posteriorly * Cervical MRI: no disc herniation or severe stenosis appreciated throughout the examination. limited disc bulging C5-C6 * Lumbar MRI: no disc herniation or neural foraminal stenosis throughout the lumbar spine. Normal curvature without fracture or spondlyilisthesis. no suspicious matter edema. * Thoracic MRI: small paracentral disc protrusion idenfied at the right at T5-T6 and at left C6-C&, encroaching or possible impinging local ventral ventral roots without significant stenosis resulting. Normal thoracic cord in caliber 7) Transaminitis Assessment/Plan * Downtrending * hepatitis panel negative * HIV nonreactive 8) Pneumonia Assessment/Plan * Repeat chest x-ray patchy atelectasis and/or infiltrate right lung base with right-sided effusion improved from prior exam minor left basal atelectasis with tiny left effusion * Augmentin 1 tab PO 24H (active since 01/14/18)to complete for 7 days. * Vitamin C 500mg PO daily 9) Prophylactic measure * Eliquis 2.5mg PO BID * Protonix 40mg PO daily * SCDS b/l disposition: We'll need to follow-up with nephrology to determine if patient will need outpatient dialysis placement or patient will not need any further dialysis sessions
[2018-01-21] MEDS: Sodium Chloride 0.45% 1,000 ML IV SCH ×2 (02:58→08:55)
[2018-01-21 07:35] LABS: BASO # 0.1 K/uL (0.0-0.2); EOS # 0.4 K/uL (0.0-0.7); EOS % 4.9 % (0.0-4.0); LYMPH # 2.5 K/uL (1.0-4.3); LYMPH % 29.5 % (20.0-40.0); MEAN CELL VOLUME 84.8 fL (80.0-94.0); MEAN CORPUSCULAR HEMOGLOBIN 29.4 pg (27.0-31.0); MEAN CORPUSCULAR HGB CONC 34.7 g/dL (33.0-37.0); MONO # 0.8 K/uL (0.0-0.8); MONO % 9.6 % (0.0-10.0); NEUT # 4.6 K/uL (1.8-7.0); RBC 4.07 Mil/uL (4.40-5.90); RED CELL DISTRIBUTION WIDTH 16.1 % (11.5-14.5); WHITE BLOOD COUNT 8.4 K/uL (4.8-10.8)
[2018-01-21 07:55] LABS: ALB/GLOB RATIO 1.5 (1.0-2.1); ALBUMIN 3.5 g/dL (3.5-5.0); ALT/SGPT 97 U/L (21-72); AST/SGOT 65 U/L (17-59); BLOOD UREA NITROGEN 29 mg/dL (9-20); CALCIUM 8.9 mg/dl (8.6-10.4); GFR NON-AFRICAN AMERICAN > 60
[2018-01-21 08:10] VITALS: TEMP 98.1; O2SAT 98
--- NOTE | 2018-01-21 11:25 | CP.PCM.PN ---
Subjective - Date & Time of Evaluation Date of Evaluation: 01/21/18 Time of Evaluation: 08:10 - Subjective Subjective: Nephrology progress note for Dr Alvarez: Pt seen and examined at bedside. No acute events overnight. No complaints at this time. Denies any william, dizziness, fever, chills, sob, cp, abd pain, n/v/d. 12 Point ROS performed and neg other than stated above. Objective - Vital Signs/Intake and Output Vital Signs (last 24 hours): Temp Pulse Resp BP Pulse Ox 98.1 F 65 21 143/81 98 01/21/18 08:09 01/21/18 08:09 01/21/18 08:09 01/21/18 08:09 01/21/18 08:09 - Medications Medications: Current Medications Amoxicillin/Clavulanate Potassium (Augmentin 500 Mg-125 Mg Tab) 1 tab PO Q24H [facility]; Protocol Stop: 01/21/18 15:16 Last Admin: 01/20/18 14:38 Dose: 1 tab Apixaban (Eliquis) 2.5 mg PO BID [facility] Last Admin: 01/20/18 17:58 Dose: 2.5 mg Ascorbic Acid (Vitamin C 500 Mg Tab) 500 mg PO DAILY [facility] Last Admin: 01/20/18 09:10 Dose: 500 mg Sodium Chloride (Sodium Chloride 0.45%) 1,000 mls @ 75 mls/hr IV .[id number] [facility] Last Admin: 01/21/18 02:58 Dose: 75 mls/hr Nystatin (Nystatin Oral Susp) 5 ml PO QID [facility] Last Admin: 01/20/18 21:54 Dose: 5 ml Pantoprazole Sodium (Protonix Ec Tab) 40 mg PO DAILY [facility] Last Admin: 01/20/18 09:10 Dose: 40 mg Trazodone HCl (Desyrel) 50 mg PO HS [facility] Last Admin: 01/20/18 21:54 Dose: 50 mg - Labs Labs: 01/21/18 07:24 01/21/18 07:24 PT 15.3 SECONDS (9.7-12.2) H 01/12/18 17:17 INR 1.4 01/12/18 17:17 APTT 46 SECONDS (21-34) H D 01/15/18 06:21 - Constitutional Appears: No Acute Distress - Head Exam Head Exam: ATRAUMATIC, NORMOCEPHALIC - Eye Exam Eye Exam: EOMI - ENT Exam ENT Exam: Mucous Membranes Moist - Respiratory Exam Respiratory Exam: Clear to Ausculation Bilateral. absent: Rales, Wheezes - Cardiovascular Exam Cardiovascular Exam: REGULAR RHYTHM, +S1, +S2 - GI/Abdominal Exam GI & Abdominal Exam: Soft. absent: Distended, Tenderness - Extremities Exam Extremities Exam: absent: Calf Tenderness - Neurological Exam Neurological Exam: Alert, Awake - Skin Skin Exam: Dry, Intact Assessment and Plan - Assessment and Plan (Free Text) Assessment: 32M with history of IV drug abuse and cocaine use, admitted with severe rhabodmyolysis and SUSHMA requiring HD likely 2/2 ATN. ARF now resolved. -ATN, resolving with serum creatinine continuing to decrease; CR of 1.2 today -Continue with IVF w/ 1/2NS at 75 cc/hr -d/c HD tunneled catheter today by surgical team -Avoid nephrotoxic drugs (NSAIDS) -F/u lower ext US Case and plan was reviewed and discussed with Dr Alvarez.
[2018-01-21] MEDS: Pantoprazole 40 mg EC Tab PO SCH (12:47)
[2018-01-21] MEDS: Nystatin 100,000 Units/ml Oral Susp 5 ml UD PO SCH ×3 (12:48→18:01)
[2018-01-21] MEDS: Amoxicillin-Clav 500-125 mg Tab PO SCH (14:34)
[2018-01-21 16:15] VITALS: BP 126/73; PULSE 77; RESP 20
--- NOTE | 2018-01-21 19:17 | CP.PCM.DIS ---
<India Manriquez P - Last Filed: 01/21/18 21:48> Provider - Provider Date of Admission: 01/12/18 00:35 Attending physician: Sneha Berman DO Primary care physician: Kb Car MD Consults: Nephro: Dr. Alvarez Neuro: Dr. Sierra Time Spent in preparation of Discharge (in minutes): 35 Diagnosis - Discharge Diagnosis (1) Acute kidney injury Status: Acute (2) Overdose Status: Acute (3) DVT (deep venous thrombosis) Status: Acute (4) Rhabdomyolysis Status: Acute Hospital Course - Lab Results Lab Results: Micro Results 01/16/18 17:10 Naris MRSA Culture - Final MRSA NOT DETECTED 01/12/18 06:41 Nose MRSA Culture (Admit) - Final MRSA NOT DETECTED Most Recent Lab Values WBC 8.4 K/uL (4.8-10.8) 01/21/18 07:24 RBC 4.07 Mil/uL (4.40-5.90) L 01/21/18 07:24 Hgb 12.0 g/dL (12.0-18.0) 01/21/18 07:24 Hct 34.5 % (35.0-51.0) L 01/21/18 07:24 MCV 84.8 fL (80.0-94.0) 01/21/18 07:24 MCH 29.4 pg (27.0-31.0) 01/21/18 07:24 MCHC 34.7 g/dL (33.0-37.0) 01/21/18 07:24 RDW 16.1 % (11.5-14.5) H 01/21/18 07:24 Plt Count 182 K/uL (130-400) 01/21/18 07:24 MPV 9.0 fL (7.2-11.7) 01/21/18 07:24 Neut % (Auto) 55.0 % (50.0-75.0) 01/21/18 07:24 Lymph % (Auto) 29.5 % (20.0-40.0) 01/21/18 07:24 Gregory % (Auto) 9.6 % (0.0-10.0) 01/21/18 07:24 Eos % (Auto) 4.9 % (0.0-4.0) H 01/21/18 07:24 Baso % (Auto) 1.0 % (0.0-2.0) 01/21/18 07:24 Neut # (Auto) 4.6 K/uL (1.8-7.0) 01/21/18 07:24 Lymph # (Auto) 2.5 K/uL (1.0-4.3) 01/21/18 07:24 Gregory # (Auto) 0.8 K/uL (0.0-0.8) 01/21/18 07:24 Eos # (Auto) 0.4 K/uL (0.0-0.7) 01/21/18 07:24 Baso # (Auto) 0.1 K/uL (0.0-0.2) 01/21/18 07:24 Neutrophils % (Manual) 84 % (50-75) H 01/12/18 08:31 Band Neutrophils % 6 % (0-2) H 01/12/18 08:31 Lymphocytes % (Manual) 6 % (20-40) L 01/12/18 08:31 Monocytes % (Manual) 4 % (0-10) 01/12/18 08:31 Differential Comment 01/13/18 06:15 Platelet Estimate Normal (NORMAL) 01/12/18 08:31 Anisocytosis (manual) Slight 01/12/18 08:31 PT 15.3 SECONDS (9.7-12.2) H 01/12/18 17:17 INR 1.4 01/12/18 17:17 APTT 46 SECONDS (21-34) H D 01/15/18 06:21 Sodium 144 mmol/L (132-148) 01/21/18 07:24 Potassium 4.9 mmol/L (3.6-5.2) 01/21/18 07:24 Chloride 108 mmol/L (98-107) H 01/21/18 07:24 Carbon Dioxide 25 mmol/L (22-30) 01/21/18 07:24 Anion Gap 15 (10-20) 01/21/18 07:24 BUN 29 mg/dL (9-20) H 01/21/18 07:24 Creatinine 1.2 mg/dL (0.8-1.5) 01/21/18 07:24 Est GFR ( Amer) > 60 01/21/18 07:24 Est GFR (Non-Af Amer) > 60 01/21/18 07:24 POC Glucose (mg/dL) 83 mg/dL (65-110) 01/16/18 07:27 Random Glucose 92 mg/dL (75-110) 01/21/18 07:24 Calcium 8.9 mg/dl (8.6-10.4) 01/21/18 07:24 Phosphorus 4.6 mg/dL (2.5-4.5) H 01/21/18 07:24 Magnesium 1.4 mg/dL (1.6-2.3) L 01/21/18 07:24 Total Bilirubin 0.6 mg/dL (0.2-1.3) 01/21/18 07:24 AST 65 U/L (17-59) H D 01/21/18 07:24 ALT 97 U/L (21-72) H 01/21/18 07:24 Alkaline Phosphatase 51 U/L (38-126) 01/21/18 07:24 Total Creatine Kinase 2241 U/L (55-170) H 01/18/18 06:25 Total Protein 5.9 g/dL (6.3-8.3) L 01/21/18 07:24 Albumin 3.5 g/dL (3.5-5.0) 01/21/18 07:24 Globulin 2.4 gm/dL (2.2-3.9) 01/21/18 07:24 Albumin/Globulin Ratio 1.5 (1.0-2.1) 01/21/18 07:24 Procalcitonin 33.43 NG/ML (0.19-0.49) H 01/12/18 08:31 Random Vancomycin < 5.0 ug/mL 01/13/18 06:15 Hepatitis A IgM Ab Negative (NEGATIVE) 01/12/18 01:00 Hep Bs Antigen Negative (NEGATIVE) 01/12/18 01:00 Hep B Core IgM Ab Negative (NEGATIVE) 01/12/18 01:00 Hepatitis C Antibody Negative (NEGATIVE) 01/12/18 01:00 HIV 1&2 Ag/Ab, 4th Gen Nonreactive (Nonreactive) 01/12/18 08:31 - Hospital Course Hospital Course: On admissoin: Patient is a 32 year old male with no significant past medical history who was transferred from [facility] to [facility] for emergent dialysis. Per the patient he initially presented to the Emergency Dept for inability to move his left arm and left leg. Patient states that he was injecting cocaine and heroine in his right arm the night prior to admission. He reports that he fell asleep in his truck. Patient woke up with new onset left arm and left leg weakness. While at [place], patient was found to be in acute renal failure, rhabdomyolysis and hyperkalemia. Patient unable to urinate. Currently he still reports that he cannot move his left arm. He is able to move his left leg but it feels weak. Hospital Course: 32 yo male admitted with Acute renal failure, secondary to rhabdo. Patient was placed on emergent dialysis. BUN and cr improved to normal levels by discharge. Patient no longer in need of dialysis. Patient was also treated for Parasthesias/weakness of the left upper and lower extremities. Dr. Sierra, neurology was consulted. An MRI of the brain and CT head were negative for acute infarct, mass effect, or intracranial hemorrage (see full report). Patient had and MRI of the lumbar spine which demonstrated no acute pathology, spinal stenosis l5-s1. An MRI of thoracic thoracic spine showed a small paracentral disc protrusion right t5-t6 and left c6-7. Weakess and parasthesias improved throughout hospital say with physical therapy. Doppler studies were done and patient was found to have Right antecubital thrombus in cephalic and Left subclavian thrombus, which were initially treated with Heparin drip and later with Eliquis 2.5mg BID. Patient also monitored for Transaminitis, which was likely 2/2 rhabdo and improved during hospitalization. A psychiatric consult was also called due to depressed mood, insomnia, and ambivalence toward stopping drug use. Patient at the time of discharge has a better attitude towards drug use cessation. Discharge instructions: Patient is stable for discharge as per Dr. West. Patient must follow up with a primary care physician within ONE WEEK of discharge. You may call [phone] (have your insurance information ready) to find and make an appointment with a primary care physician in the [place] area. When you see your doctor, you must obtain a script for Basic Metabolic Panel (blood work) to be done one week from discharge to monitor kidney numbers. You must also obtain a nephrology referral from your primary care doctor to follow up your kidney function. You are being discharged with the following prescriptions: Eliquis 5mg by mouth Twice daily. You must be on this medication for 6 months. Please refer to your physician for refills. Nystatin oral 5ml by mouth 4x per day Trazodone 50mg by mouth at night time You may take Vitamin C 500mg daily from over the counter. You must stop drug use. Return to the emergency room if you experience any new or worsening symptoms. Risks of using Eliquis improperly were discussed with patient. Return to ER in the case of signs of bleeding. Patient understands the importance of anticoagulant therapy and its benefit. Discharge Exam - Head Exam Head Exam: ATRAUMATIC, NORMOCEPHALIC - Eye Exam Eye Exam: EOMI - ENT Exam ENT Exam: Mucous Membranes Dry - Respiratory Exam Respiratory Exam: Clear to PA & Lateral. absent: Rales, Rhonchi, Wheezes - Cardiovascular Exam Cardiovascular Exam: REGULAR RHYTHM, +S1, +S2 - GI/Abdominal Exam GI & Abdominal Exam: Normal Bowel Sounds, Soft. absent: Guarding, Tenderness - Extremities Exam Extremities exam: full ROM, pedal edema (LLE swelling (doppler negative)) - Neurological Exam Neurological exam: Alert, CN II-XII Intact, Oriented x3 - Psychiatric Exam Psychiatric exam: Normal Affect, Normal Mood - Skin Skin Exam: Normal Color, Warm Discharge Plan - Discharge Medications Prescriptions: RX: Apixaban [Eliquis] 5 mg PO BID #60 tab Nystatin [Nystatin Oral Susp] 5 ml PO QID 7 Days ml RX: traZODone [Desyrel] 50 mg PO HS #14 tab - Follow Up Plan Condition: GOOD Disposition: HOME/ ROUTINE Instructions: Smoking: Not Just Harmful to Your Lungs and Heart, Nystatin (Oral), Deep Vein Thrombosis (Blood Clots in the Legs) (DC), Acute Kidney Failure (DC), Quitting Smoking, Apixaban, Trazodone Additional Instructions: Patient is stable for discharge as per Dr. West. Patient must follow up with a primary care physician within ONE WEEK of discharge. You may call [phone] (have your insurance information ready) to find and make an appointment with a primary care physician in the [facility]. When you see your doctor, you must obtain a script for Basic Metabolic Panel (blood work) to be done one week from discharge to monitor kidney numbers. You must also obtain a nephrology referral from your primary care doctor to follow up your kidney function. You are being discharged with the following prescriptions: Eliquis 5mg by mouth Twice daily. You must be on this medication for 6 months. Please refer to your physician for refills. Nystatin oral 5ml by mouth 4x per day Trazodone 50mg by mouth at night time You may take Vitamin C 500mg daily from over the counter. You must stop drug use. Return to the emergency room if you experience any new or worsening symptoms. Referrals: Kb Car MD [Primary Care Provider] - <Fermin West - Last Filed: 02/22/18 15:20> Provider - Provider Date of Admission: 01/12/18 00:35 Attending physician: Sneha Berman DO Primary care physician: Kb Car MD Hospital Course - Lab Results Lab Results: Micro Results 01/16/18 17:10 Naris MRSA Culture - Final MRSA NOT DETECTED 01/12/18 06:41 Nose MRSA Culture (Admit) - Final MRSA NOT DETECTED Most Recent Lab Values WBC 8.4 K/uL (4.8-10.8) 01/21/18 07:24 RBC 4.07 Mil/uL (4.40-5.90) L 01/21/18 07:24 Hgb 12.0 g/dL (12.0-18.0) 01/21/18 07:24 Hct 34.5 % (35.0-51.0) L 01/21/18 07:24 MCV 84.8 fL (80.0-94.0) 01/21/18 07:24 MCH 29.4 pg (27.0-31.0) 01/21/18 07:24 MCHC 34.7 g/dL (33.0-37.0) 01/21/18 07:24 RDW 16.1 % (11.5-14.5) H 01/21/18 07:24 Plt Count 182 K/uL (130-400) 01/21/18 07:24 MPV 9.0 fL (7.2-11.7) 01/21/18 07:24 Neut % (Auto) 55.0 % (50.0-75.0) 01/21/18 07:24 Lymph % (Auto) 29.5 % (20.0-40.0) 01/21/18 07:24 Gregory % (Auto) 9.6 % (0.0-10.0) 01/21/18 07:24 Eos % (Auto) 4.9 % (0.0-4.0) H 01/21/18 07:24 Baso % (Auto) 1.0 % (0.0-2.0) 01/21/18 07:24 Neut # (Auto) 4.6 K/uL (1.8-7.0) 01/21/18 07:24 Lymph # (Auto) 2.5 K/uL (1.0-4.3) 01/21/18 07:24 Gregory # (Auto) 0.8 K/uL (0.0-0.8) 01/21/18 07:24 Eos # (Auto) 0.4 K/uL (0.0-0.7) 01/21/18 07:24 Baso # (Auto) 0.1 K/uL (0.0-0.2) 01/21/18 07:24 Neutrophils % (Manual) 84 % (50-75) H 01/12/18 08:31 Band Neutrophils % 6 % (0-2) H 01/12/18 08:31 Lymphocytes % (Manual) 6 % (20-40) L 01/12/18 08:31 Monocytes % (Manual) 4 % (0-10) 01/12/18 08:31 Differential Comment 01/13/18 06:15 Platelet Estimate Normal (NORMAL) 01/12/18 08:31 Anisocytosis (manual) Slight 01/12/18 08:31 PT 15.3 SECONDS (9.7-12.2) H 01/12/18 17:17 INR 1.4 01/12/18 17:17 APTT 46 SECONDS (21-34) H D 01/15/18 06:21 Sodium 144 mmol/L (132-148) 01/21/18 07:24 Potassium 4.9 mmol/L (3.6-5.2) 01/21/18 07:24 Chloride 108 mmol/L (98-107) H 01/21/18 07:24 Carbon Dioxide 25 mmol/L (22-30) 01/21/18 07:24 Anion Gap 15 (10-20) 01/21/18 07:24 BUN 29 mg/dL (9-20) H 01/21/18 07:24 Creatinine 1.2 mg/dL (0.8-1.5) 01/21/18 07:24 Est GFR ( Amer) > 60 01/21/18 07:24 Est GFR (Non-Af Amer) > 60 01/21/18 07:24 POC Glucose (mg/dL) 83 mg/dL (65-110) 01/16/18 07:27 Random Glucose 92 mg/dL (75-110) 01/21/18 07:24 Calcium 8.9 mg/dl (8.6-10.4) 01/21/18 07:24 Phosphorus 4.6 mg/dL (2.5-4.5) H 01/21/18 07:24 Magnesium 1.4 mg/dL (1.6-2.3) L 01/21/18 07:24 Total Bilirubin 0.6 mg/dL (0.2-1.3) 01/21/18 07:24 AST 65 U/L (17-59) H D 01/21/18 07:24 ALT 97 U/L (21-72) H 01/21/18 07:24 Alkaline Phosphatase 51 U/L (38-126) 01/21/18 07:24 Total Creatine Kinase 2241 U/L (55-170) H 01/18/18 06:25 Total Protein 5.9 g/dL (6.3-8.3) L 01/21/18 07:24 Albumin 3.5 g/dL (3.5-5.0) 01/21/18 07:24 Globulin 2.4 gm/dL (2.2-3.9) 01/21/18 07:24 Albumin/Globulin Ratio 1.5 (1.0-2.1) 01/21/18 07:24 Procalcitonin 33.43 NG/ML (0.19-0.49) H 01/12/18 08:31 Random Vancomycin < 5.0 ug/mL 01/13/18 06:15 Hepatitis A IgM Ab Negative (NEGATIVE) 01/12/18 01:00 Hep Bs Antigen Negative (NEGATIVE) 01/12/18 01:00 Hep B Core IgM Ab Negative (NEGATIVE) 01/12/18 01:00 Hepatitis C Antibody Negative (NEGATIVE) 01/12/18 01:00 HIV 1&2 Ag/Ab, 4th Gen Nonreactive (Nonreactive) 01/12/18 08:31 Attending/Attestation - Attestation I have personally seen and examined this patient.: Yes I have fully participated in the care of the patient.: Yes I have reviewed all pertinent clinical information, including history, physical exam and plan: Yes Notes (Text): 32 yo male admitted with Acute renal failure, secondary to rhabdo. Patient was placed on emergent dialysis. BUN and cr improved to normal levels by discharge. Patient no longer in need of dialysis. Patient was also treated for Parasthesias/weakness of the left upper and lower extremities. Dr. Sierra, neurology was consulted. An MRI of the brain and CT head were negative for acute infarct, mass effect, or intracranial hemorrage (see full report). Patient had and MRI of the lumbar spine which demonstrated no acute pathology, spinal stenosis l5-s1. An MRI of thoracic thoracic spine showed a small paracentral disc protrusion right t5-t6 and left c6-7. Weakess and parasthesias improved throughout hospital say with physical therapy. Doppler studies were done and patient was found to have Right antecubital thrombus in cephalic and Left subclavian thrombus, which were initially treated with Heparin drip and later with Eliquis 2.5mg BID. Patient also monitored for Transaminitis, which was likely 2/2 rhabdo and improved during hospitalization. A psychiatric consult was also called due to depressed mood, insomnia, and ambivalence toward stopping drug use. Patient at the time of discharge has a better attitude towards drug use cessation.
--- NOTE | 2018-01-22 11:53 | VASCLAB ---
Date of service: 01/21/2018 PROCEDURE: Lower Extremity Venous Duplex Exam. HISTORY: Acute left lower extremity swelling PRIORS: TECHNIQUE: Bilateral common femoral, femoral, popliteal and posterior tibial, peroneal and great saphenous veins were evaluated. Flow was assessed with color Doppler, compressibility, assessment of phasic flow and augmentation response. Report prepared by CHERRY Webb FINDINGS: RIGHT: 1. Common Femoral Vein: 1.1. Compressibility - Fully compressible: Thrombus - None : Flow - Phasic: Augmentation -Normal: Reflux - None. 2. Femoral Vein: 2.1. Compressibility - Fully compressible: Thrombus - None : Flow - Phasic: Augmentation -Normal: Reflux - None. 3. Popliteal Vein: 3.1. Compressibility - Fully compressible: Thrombus - None : Flow - Phasic: Augmentation -Normal: Reflux - None. 4. Posterior Tibial Vein: 4.1. Compressibility - Fully compressible: Thrombus - None: Flow - Phasic: Augmentation -Normal: Reflux - None. 5. Peroneal Vein: 5.1. Compressibility - Fully compressible: Thrombus - None: Flow - Phasic: Augmentation -Normal: Reflux - None. 6. Great Saphenous Vein: 6.1. Compressibility - Fully compressible: Thrombus - None: Flow - Phasic: Augmentation - Normal: Reflux - None. LEFT: 1. Common Femoral Vein: 1.1. Compressibility - Fully compressible: Thrombus - None: Flow - Phasic: Augmentation -Normal: Reflux - None. 2. Femoral Vein: 2.1. Compressibility - Fully compressible: Thrombus - None: Flow - Phasic: Augmentation -Normal: Reflux - None. 3. Popliteal Vein: 3.1. Compressibility - Fully compressible: Thrombus - None : Flow - Phasic: Augmentation -Normal: Reflux - None. 4. Posterior Tibial Vein: 4.1. Compressibility - Fully compressible: Thrombus - None: Flow - Phasic: Augmentation -Normal: Reflux - None. 5. Peroneal Vein: 5.1. Compressibility - Fully compressible: Thrombus - None: Flow - Phasic: Augmentation -Normal: Reflux - None. 6. Great Saphenous Vein: 6.1. Compressibility - Fully compressible: Thrombus - None: Flow - Phasic: Augmentation - Normal: Reflux - None. OTHER FINDINGS: Right: None significant. Left: Soft tissue edema noted. IMPRESSION: Right: No evidence of deep or superficial vein thrombosis of the right lower extremity. Normal valve function noted of the right side. Left: No evidence of deep or superficial vein thrombosis of the left lower extremity. Normal valve function noted of the left side.
== END 2018-01-21 20:02 | disposition home or self-care (01) | DRG 351 ==
LOC: UNDOADMIN 00:28 → C.9I 00:28 → C.5S 01-16 09:00
PROVIDERS: ADMIT Internal Medicine; ATTEND Hospitalist
PROC: 5A1D70Z Performance of Urinary Filtration, Intermittent, Less than 6 Hours Per Day (ICD-10-PCS; 2018-01-12)
PROC: 5A1D70Z Performance of Urinary Filtration, Intermittent, Less than 6 Hours Per Day (ICD-10-PCS; 2018-01-13)
PROC: 02HV33Z Insertion of Infusion Device into Superior Vena Cava, Percutaneous Approach (ICD-10-PCS; principal; 2018-01-13 09:00)
PROC: 5A1D70Z Performance of Urinary Filtration, Intermittent, Less than 6 Hours Per Day (ICD-10-PCS; 2018-01-15)
DX: M62.82 Rhabdomyolysis (principal); N17.0 Acute kidney failure with tubular necrosis; F11.20 Opioid dependence, uncomplicated; I82.722 Chronic embolism and thrombosis of deep veins of left upper extremity; E87.5 Hyperkalemia; E87.2 Acidosis; F14.10 Cocaine abuse, uncomplicated; E87.6 Hypokalemia; G47.00 Insomnia, unspecified; Z99.2 Dependence on renal dialysis; F12.90 Cannabis use, unspecified, uncomplicated; F17.210 Nicotine dependence, cigarettes, uncomplicated; F41.9 Anxiety disorder, unspecified; Z79.01 Long term (current) use of anticoagulants

== ENCOUNTER 2018-03-30 19:16 | Inpatient (IN) | payer MEDICAID ==
[2018-03-30 19:16] VITALS: BMI 21.1
--- NOTE | 2018-03-30 19:38 | C.PDOC ---
History Of Present Illness Patient presents to the ER requesting detox from heroin, last use was this morning and last night. Denies fever, chills, suicidal ideation, or homicidal ideation. Time Seen by Provider: 03/30/18 19:37 Chief Complaint (Nursing): Substance Abuse History Per: Patient History/Exam Limitations: no limitations Onset/Duration Of Symptoms: Days Current Symptoms Are (Timing): Still Present Suicide/Self Injury Attempted (Context): None Modifying Factor(s): Other (Heroin) Severity: None Pain Scale Rating Of: 0 Associated Symptoms: denies: Depression, Suicidal Thoughts Involuntary Hold By: None Recent travel outside of the [place]: No Additional History Per: Patient Past Medical History Reviewed: Historical Data, Nursing Documentation, Vital Signs Vital Signs: Last Vital Signs Temp 98.3 F 03/30/18 19:23 Pulse 87 03/30/18 19:23 Resp 18 03/30/18 19:23 BP 135/92 H 03/30/18 19:23 Pulse Ox 99 03/30/18 19:23 - Medical History PMH: Denies: Diabetes, Hepatitis, HIV, HTN, Chronic Kidney Disease, Seizures, Sexually Transmitted Disease - [facility] Procedures (01/12/18) INJECT/INFUSE NEC (02/14/14) INSERTION OF INFUSION DEV INTO SUP VENA CAVA, PERC APPROACH (01/12/18) PSYCHIA INTERV/EVAL NEC (04/30/14) Family History: States: No Known Family Hx - Social History Hx Alcohol Use: No (DENIES) Hx Substance Use: Yes (HEROIN,COCAINE IVDU.USED 5 BAGS EACH TODAY.) - Immunization History Hx Tetanus Toxoid Vaccination: No Hx Influenza Vaccination: No Hx Pneumococcal Vaccination: No Review Of Systems Constitutional: Negative for: Fever, Chills Cardiovascular: Negative for: Chest Pain, Palpitations Respiratory: Negative for: Cough, Shortness of Breath Gastrointestinal: Negative for: Nausea, Vomiting Neurological: Negative for: Weakness, Numbness Psych: Negative for: Suicidal ideation, Other (Homicidal ideation) Physical Exam - Physical Exam Appears: Non-toxic Skin: Warm, Dry Head: Normacephalic Oral Mucosa: Moist Chest: Symmetrical, No Tenderness Cardiovascular: Rhythm Regular Respiratory: No Rales, No Rhonchi, No Wheezing Gastrointestinal/Abdominal: Soft, No Tenderness Back: Normal Inspection Extremity: Normal ROM Extremity: Bilateral: Atraumatic Neurological/Psych: Oriented x3 Gait: Steady ED Course And Treatment - Laboratory Results Result Diagrams: 03/30/18 19:42 03/30/18 19:42 O2 Sat by Pulse Oximetry: 99 (Room air) Pulse Ox Interpretation: Normal Progress Note: Blood work and urinalysis ordered. Crisis notified. Disposition Discussed With Dr.: Golden Jaquez Comment: accepted the pt onhis service and took over the care at 9:05 PM Doctor Will See Patient In The: Hospital Counseled Patient/Family Regarding: Studies Performed, Diagnosis, Need For Followup - Disposition Disposition: HOSPITALIZED Disposition Time: 19:37 Condition: FAIR Forms: [facility] (Turkmen) - POA Present On Arrival: None - Clinical Impression Clinical Impression: Drug dependence, Drug abuse - Scribe Statement The provider has reviewed the documentation as recorded by the Scribe Andrés Carson All medical record entries made by the Scribe were at my direction and personally dictated by me. I have reviewed the chart and agree that the record accurately reflects my personal performance of the history, physical exam, medical decision making, and the department course for this patient. I have also personally directed, reviewed, and agree with the discharge instructions and disposition. Decision To Admit - Pt Status Changed To: Hospital Disposition Of: Inpatient - Admit Certification Admit to Inpatient:: After my assessment, the patient will require hospitaliz ation for at least two midnights. This is because of the severity of symptoms shown, intensity of services needed, and/or the medical risk in this patient being treated as an outpatient. - InPatient: Physician Admission Certification: I certify that this patient requires 2 or more midnights of care for the following reason:: After my assessment, the patient will require hospitalization for at least two midnights. This is because of the severity of symptoms shown, intensity of services needed, and/or the medical risk in this patient being treated as an outpatient. - . Bed Request Type: Detox Admitting Physician: Golden Jaquez Patient Diagnosis: Drug dependence, Drug abuse
[2018-03-30 19:48] LABS: BASO # 0.1 K/uL (0.0-0.2); BASO % 0.8 % (0.0-2.0); EOS # 0.2 K/uL (0.0-0.7); EOS % 2.4 % (0.0-4.0); LYMPH # 2.8 K/uL (1.0-4.3); LYMPH % 40.5 % (20.0-40.0); MEAN CORPUSCULAR HEMOGLOBIN 28.9 pg (27.0-31.0); MEAN CORPUSCULAR HGB CONC 33.6 g/dL (33.0-37.0); MEAN PLATELET VOLUME 8.7 fL (7.2-11.7); MONO # 0.5 K/uL (0.0-0.8); NEUT # 3.4 K/uL (1.8-7.0); NEUT % 49.3 % (50.0-75.0); RBC 5.08 Mil/uL (4.40-5.90); RED CELL DISTRIBUTION WIDTH 13.2 % (11.5-14.5); WHITE BLOOD COUNT 6.9 K/uL (4.8-10.8)
[2018-03-30 19:50] LABS: URINE BILIRUBIN NEGATIVE (NEGATIVE); URINE BLOOD NEGATIVE (NEGATIVE); URINE CLARITY Clear (Clear); URINE COLOR Yellow (YELLOW); URINE GLUCOSE (UA) NORMAL (Normal); URINE LEUKOCYTE ESTERASE NEG Leu/uL (Negative); URINE PROTEIN NEGATIVE (NEGATIVE); URINE UROBILINOGEN NORMAL mg/dL (0.2-1.0)
[2018-03-30 19:51] LABS: HEMOGLOBIN 14.7 g/dL (12.0-18.0)
[2018-03-30 20:04] LABS: ALB/GLOB RATIO 1.4 (1.0-2.1); ALBUMIN 5.2 g/dL (3.5-5.0); ALT/SGPT 27 U/L (21-72); AST/SGOT 23 U/L (17-59); BARBITURATES, UR NEGATIVE (NEGATIVE); BENZODIAZEPINES, UR NEGATIVE (NEGATIVE); BLOOD UREA NITROGEN 12 mg/dL (9-20); CALCIUM 10.1 mg/dl (8.6-10.4); GFR NON-AFRICAN AMERICAN > 60; PHENCYCLIDINE, UR NEGATIVE (NEGATIVE)
[2018-03-30 20:10] LABS: OPIATES, UR POSITIVE (NEGATIVE)
--- NOTE | 2018-03-30 21:32 | PCM.BM ---
<Timothy Zurita - Last Filed: 03/30/18 21:30> Treatment Plan Problems - Problems identified on initial assessmt potential for opiate withdrawal Date Initiated: 03/30/18 Time Initiated: 21:31 Status: Active - Milieu Protocol Maintain good personal hygiene: daily Encourage regular showers, daily Remind patient to perform daily oral care, daily Assist patient to perform ADL's Conduct patient checks and document Observation sheet: Q15 minutes Maintain personal safety: every shift Educate patient to report safety concerns to staff, every shift Monitor environment for contraband/sharps Medication safety: Monitor for expected outcome, potential side effects: every shift, Assess barriers to learning: every shift, Assess readiness for medication education: every shift <James Longo - Last Filed: 03/31/18 13:48> - Diagnosis (1) Opioid use disorder, severe, dependence Status: Acute Interventions: 03/31/18 13:48 * Assess 7x/week regarding severity of withdrawal * Educate regarding risks, benefits, side effects and alternatives of medications * Use Motivational Interviewing for abstinence * Use CBT for relapse prevention * Medication management for withdrawal symptoms * Encourage medication assisted treatment * <Annita Samayoa - Last Filed: 04/01/18 13:41> Family Contact Family involvement: Famliy/SO not involved - Goals for Treatment Patient goals for treatment: Complete detox and transition to an outpatient counseling program. Discharge/Continuing Care - Education Needs Education Needs: Patient Medication, Patient Diagnosis/Disease Process, Patient Coping Skills, Patient Anger Management skills, Patient Placement options, Deborah ent Community resources - Discharge Discharge Criteria: No longer exhibiting s/s of withdrawal, Reduction of target symptoms Discharge to:: Home, With Family - Treatment Team Participation Patient/Family/SO Statement: 04/01/18 13:41 "I wanna go to an [facility] in [place]..." Discussed with Family/SO: No Was Patient/Family/SO present at Treatment Team Meeting: Yes
[2018-03-30] MEDS ORDERED: Aluminum Hydroxide/Magnesium Hydroxide Susp (30 mL) PO PRN (21:59)
--- NOTE | 2018-03-31 11:05 | PCM.PSYCH ---
Initial Psychiatric Evaluation - Initial Psychiatric Evaluation Type of Admission: Voluntary Legal Status: Capacity Chief Complaint (in patient's own words): "I need detox" History of Present Illness and Precipitating Events: The patient is seen, chart reviewed and case discussed. This is a 22-year-old male, single with no child, lives with his parents in [place]. He is unemployed and his parents support him. The patient is here for opioid detox; using around 10 bags intravenously for the last 5 years. He admits to having 5 overdoses, last one being in January 2018, when he was narcan'ed. he has used cocaine in the past both IV and intranasal and last one was 2 months ago. He denies alcohol, Xanax, and other drugs but he smokes cigarettes a pack a day and also marijuana every other day. Because of his heroin use he endorses medical conditions; he was diagnosed with blood clots around shoulder and given lots thinner but he had been noncompliant. He also feels depressed but denies feeling suicidal. Patient has significant withdrawal symptoms but also somewhat incongruent affect and significant social isolation. Past psych history: He admits to having been depressed for a while and he reports significant symptoms except for suicidality. No luis or psychosis and no admissions. Family psych history: Uncle and grandfather had alcoholism Medical history: Left side perilous is due to blood clot. Currently he doesn't have paralysis but he supposed to take his blood thinner which she ignores. Current Medications: Active Medications Generic Name Dose Route Start Last Admin Trade Name Freq PRN Reason Stop Dose Admin Al Hydrox/Mg Hydrox/Simethicone 30 ml 03/30/18 21:59 Maalox 30 Ml PO TID PRN Indigestion / Heartburn Apixaban 5 mg 03/31/18 10:00 03/31/18 10:58 Eliquis PO 5 mg BID MANJU Administration Clonidine HCl 0.1 mg 03/30/18 21:59 Catapres PO Q4 PRN COWS Score More or Equal to 5 Dicyclomine HCl 10 mg 03/30/18 22:00 Bentyl PO Q6 PRN Abdominal Cramps Gabapentin 300 mg 03/31/18 10:00 03/31/18 10:57 Neurontin PO 300 mg TID MANJU Administration Hydroxyzine HCl 25 mg 03/31/18 00:56 Atarax PO Q6 PRN Anxiety Ibuprofen 400 mg 03/30/18 22:01 Motrin Tab PO Q6 PRN Pain, moderate (4-7) Loperamide HCl 2 mg 03/30/18 21:59 Imodium PO Q8 PRN Diarrhea Methadone HCl 15 mg 03/31/18 10:00 03/31/18 10:57 Methadone PO 04/04/18 09:59 15 mg Q24H MANJU Administration Taper Ondansetron HCl 4 mg 03/30/18 21:59 Zofran Tab PO Q8 PRN Nausea/Vomiting Trazodone HCl 50 mg 03/30/18 22:15 03/30/18 23:24 Desyrel PO 50 mg HS MANJU Administration Past Psychiatric History - Past Psychiatric History Previous Treatment History: None Pertinent Medical Hx (Current Medical&Sleep Prob, Allergies): Allergies Allergy/AdvReac Type Severity Reaction Status Date / Time No Known Allergies Allergy Verified 01/28/18 16:14 Apixaban [Eliquis] 5 mg PO BID #60 tab 01/21/18 Review of Systems - Neurological Neurological: Tremor - Psychiatric Psychiatric: Abnormal Sleep Pattern, Anhedonia, Anxiety, Change in Appetite, Depression, Difficulty Concentrating. absent: Hallucinations, Homicidal Ideation, Paranoia, Suicidal Ideation Mental Status Examination - Personal Presentation Personal Presentation: Looks older than stated age (Unkempt) - Affect Affect: Blunted - Motor Activity Motor Activity: Calm - Reliability in Providing Information Reliability in Providing Information: Fair - Speech Speech: Organized (But slowed) - Mood Mood: Depressed, Anxious - Formal Thought Process Formal Thought Process: No Impairment - Cognitive Functions Orientation: Person, Place, Situation, Time Sensorium: Alert Attention/Concentration: Easily distracted Abstract Thinking: [place] Judgement: Intact, as evidence by: Insight regarding need for hospitalization Memory: Recent intact, as evidence by: Ability to recall events of the day, Remote intact, as evidenced by: Ability to recall historical events - Risk Risk: Withdrawal, Diminished functioning - Strength & Assets Inventory Strength & Assets Inventory: Family support, Cooperative - Limitations Limitations: Other DSM 5 DX - DSM 5 DSM 5 Diagnosis: Opioid withdrawal Opioid use disorder, severe Cocaine use disorder, moderate Cannabis use disorder, severe Tobacco use disorder, severe Major depressive disorder, severe, without psychosis Rule out schizoid personality disorder - Recommended/Plan of Treatment Treatment Recommendations and Plan of Treatment: Taper with methadone Remeron for depression Eliquis for blood thinning Gabapentin for augmentation As needed medications All risks, benefits and alternatives of the meds discussed, and the pt agreed and understood. Attend groups and activities Supportive therapy and psychoeducation [place] for abstinence CBT for relapse prevention Encourage MAT Refer to rehab or IOP, and self-help groups Teach healthy lifestyle methods, i.e. diet, exercise, meditation Smoking cessation with [place] Nicotine patch if needed Family meeting if needed 34 min Projected ELOS: 4 days Prognosis: Good with treatment Discharge Plan and Discharge Criteria: Refer to rehabilitation followed by MAT - Smoking Cessation Smoking Cessation Initiated: Yes
--- NOTE | 2018-04-01 14:25 | PCM.PYCHPN ---
Psychiatric Progress Note - Psychiatric Progress Note Patient seen today, length of contact: 16 min Patient Chief Complaint: "I am not well" Problems Identified/Issues Discussed: The pt is seen, chart reviewed, case discussed with staff. The pt is compliant with medications and reports no side-effects. Symptoms are improving but needs more time to stabilize. Pt attends groups and activities. Support given, psycho-education provided. After care discussed. Medication Change: Yes (detox changes daily) Medical Record Reviewed: Yes Mental Status Examination - Cognitive Function Orientation: Person, Place, Situation, Time Memory: Intact Attention: WNL Concentration: Poor Association: WNL Fund of Knowledge: WNL - Mood Mood: Depressed, Anxious - Affect Affect: Constricted - Speech Speech: Appropriate - Formal Thought Process Formal Thought Process: No Impairment - Suicidal Ideation Suicidal Ideation: No - Homicidal Ideation Homicidal Ideation: No Goal/Treatment Plan - Goal/Treatment Plan Need for Continued Stay: Discharge may exacerbated symptoms, Severe functional impairment Progress Toward Problem(s) and Goals/Treatment Plan: Taper with methadone Remeron for depression Eliquis for blood thinning Gabapentin for augmentation As needed medications All risks, benefits and alternatives of the meds discussed, and the pt agreed and understood. Attend groups and activities Supportive therapy and psychoeducation [place] for abstinence CBT for relapse prevention Encourage MAT Refer to rehab or IOP, and self-help groups Teach healthy lifestyle methods, i.e. diet, exercise, meditation Smoking cessation with [place] Nicotine patch if needed Family meeting if needed
--- NOTE | 2018-04-02 12:24 | PCM.PYCHPN ---
Psychiatric Progress Note - Psychiatric Progress Note Patient seen today, length of contact: 16 min Patient Chief Complaint: "I am not well" Problems Identified/Issues Discussed: The pt is seen, chart reviewed, case discussed with staff. The pt is compliant with medications and reports no side-effects. Symptoms are improving but needs more time to stabilize. Pt attends groups and activities. Support given, psycho-education provided. After care discussed. Medication Change: Yes (detox changes daily) Medical Record Reviewed: Yes Mental Status Examination - Cognitive Function Orientation: Person, Place, Situation, Time Memory: Intact Attention: WNL Concentration: Poor Association: WNL Fund of Knowledge: WNL - Mood Mood: Depressed, Anxious - Affect Affect: Constricted - Speech Speech: Appropriate - Formal Thought Process Formal Thought Process: No Impairment - Suicidal Ideation Suicidal Ideation: No - Homicidal Ideation Homicidal Ideation: No Goal/Treatment Plan - Goal/Treatment Plan Need for Continued Stay: Discharge may exacerbated symptoms, Severe functional impairment Progress Toward Problem(s) and Goals/Treatment Plan: Taper with methadone Remeron for depression Eliquis for blood thinning Gabapentin for augmentation As needed medications All risks, benefits and alternatives of the meds discussed, and the pt agreed and understood. Attend groups and activities Supportive therapy and psychoeducation [place] for abstinence CBT for relapse prevention Encourage MAT Refer to rehab or IOP, and self-help groups Teach healthy lifestyle methods, i.e. diet, exercise, meditation Smoking cessation with [place] Nicotine patch if needed Family meeting if needed
--- NOTE | 2018-04-03 09:15 | PCM.PYCHDC ---
Mental Status Examination - Mental Status Examination Orientation: Person Discharge Summary - Discharge Note Consultations:: List each consultation separately and include: 1. Reason for request. 2. Findings. 3. Follow-up Summary of Hospital Course include:: 1. Description of specific treatment plan utilized for patients during their course of treatmen. 2. Summarize the time- course for resolution of acute symptoms and/or regressed behaviors. 3. Describe issues identified and worked on during hospitalization. 4. Describe medication utilized. 5. Describe medical problems identified and treated. 6. Reassessment of suicide risk Summary of Hospital Course: The patient is seen, chart reviewed and case discussed. This is a 22-year-old male, single with no child, lives with his loc fournier in [place]. He is unemployed and his parents support him. The patient is here for opioid detox; using around 10 bags intravenously for the last 5 years. He admits to having 5 overdoses, last one being in January 2018, when he was narcan'ed. he has used cocaine in the past both IV and intranasal and last one was 2 months ago. He denies alcohol, Xanax, and other drugs but he smokes cigarettes a pack a day and also marijuana every other day. Because of his heroin use he endorses medical conditions; he was diagnosed with blood clots around shoulder and given lots thinner but he had been noncompliant. He also feels depressed but denies feeling suicidal. Patient has significant withdrawal symptoms but also somewhat incongruent affect and significant social isolation. Past psych history: He admits to having been depressed for a while and he reports significant symptoms except for suicidality. No luis or psychosis and no admissions. Family psych history: Uncle and grandfather had alcoholism Medical history: Left side perilous is due to blood clot. Currently he doesn't have paralysis but he supposed to take his blood thinner which she ignores. He will go to [facility] but if his insurance is notactivated by then he will try [facility]. - Diagnosis (1) Opioid use disorder, severe, dependence Current Visit: Yes Status: Acute - Final Diagnosis (DSM 5) Condition upon Discharge: FAIR Disposition: HOME/ ROUTINE Follow-up Treatment Plan: Taper with methadone Remeron for depression Eliquis for blood thinning Gabapentin for augmentation As needed medications All risks, benefits and alternatives of the meds discussed, and the pt agreed and understood. Attend groups and activities Supportive therapy and psychoeducation [place] for abstinence CBT for relapse prevention Encourage MAT Refer to rehab or IOP, and self-help groups Teach healthy lifestyle methods, i.e. diet, exercise, meditation Smoking cessation with [place] Nicotine patch if needed Family meeting if needed Prescriptions/Medication Reconciliation: Apixaban [Eliquis] 5 mg PO BID #60 tab Gabapentin [Neurontin] 300 mg PO TID #90 cap hydrOXYzine HCl [Atarax] 25 mg PO DAILY PRN #30 tab PRN Reason: Anxiety traZODone [Desyrel] 50 mg PO HS #30 tab
[2018-04-03] MEDS ORDERED: Influenza Vaccine 60 MCG/0.5 ML SYR (3 yr & up) IM ONE (10:00)
[2018-04-03 10:40] VITALS: BP 124/84; PULSE 80; RESP 18; TEMP 98.4; O2SAT 98
== END 2018-04-03 10:15 | disposition home or self-care (01) | DRG 744 ==
LOC: C.ER 19:16 → C.7D 21:04
DX: F11.23 Opioid dependence with withdrawal (principal); F32.2 Major depressive disorder, single episode, severe without psychotic features; F17.210 Nicotine dependence, cigarettes, uncomplicated; F12.20 Cannabis dependence, uncomplicated; F14.20 Cocaine dependence, uncomplicated; Z91.19 Patient's noncompliance with other medical treatment and regimen